=== PATIENT | male | born 1975 | race Caucasian/White ===

== ENCOUNTER → 2019-07-31 10:14 | Outpatient (CLI) | payer BC, SELFPAY ==
--- NOTE | 2019-07-31 10:24 | XR_ITS ---
PROCEDURE: XR FOOT RT MIN 3V CLINICAL INDICATION: RT FOOT PAIN COMPARISON: FTL3 FOOT-LT-3 VIEWS from 06/17/2015 FINDINGS: No fracture or dislocation. No lytic or blastic change. There is normal mineralization. The joint spaces are well-preserved. No significant degenerative/arthritic changes. No erosive changes evident. Other findings:None. IMPRESSION: Negative right foot Dictated by: Liam Harvey MD 07/31/2019 11:15 Electronically signed by Liam Harvey MD in [place] 07/31/2019 11:15
--- NOTE | 2019-07-31 10:24 | XR_ITS ---
PROCEDURE: XR FOOT LT MIN 3V CLINICAL INDICATION: LT FOOT PAIN COMPARISON: FTL3 FOOT-LT-3 VIEWS from 06/17/2015 FINDINGS: No fracture or dislocation. No lytic or blastic change. There is normal mineralization. There are postsurgical changes 2 crossing screws within the talus as before. There is a mildly prominent posterior talar process with mild osteoarthritic change the posterior aspect the talocalcaneal joint at the prominent posterior talar process. Other findings:None. IMPRESSION: Postsurgical change. 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 Otherwise negative Dictated by: Liam Harvey MD 07/31/2019 11:15 Electronically signed by Liam Harvey MD in [place] 07/31/2019 11:15
--- NOTE | 2019-07-31 10:24 | XR_ITS ---
PROCEDURE: XR LUMBAR SPINE MIN 4V CLINICAL INDICATION: LOW BACK PAIN COMPARISON: No exams were available for comparison FINDINGS: There is normal alignment. There is mild degenerative disc disease T11-T12 and T12-L1. Mild degenerative disc disease L5-S1. No acute fracture or dislocation. No lytic or blastic change. IMPRESSION: Mild degenerative changes, no acute finding Dictated by: Liam Harvey MD 07/31/2019 11:13 Electronically signed by Liam Harvey MD in [place] 07/31/2019 11:13
== END ==
PROVIDERS: PCP Family Medicine; Visit Provider Nurse Practitioner Family
DX: M54.5 Low back pain (principal); M79.672 Pain in left foot; M79.671 Pain in right foot
CPT/HCPCS: 72110; 73630

== ENCOUNTER 2020-08-13 08:28 | Outpatient (CLI) | payer BC, SELFPAY ==
[2020-08-13 08:39] VITALS: BMI 29.5
--- NOTE | 2020-08-13 08:57 | PC.NURSE ---
0857-BLOOD DRAWN BY LAB FOR H/H TO SEE IF PT NEEDS THERAPEUTIC PHLEBOTOMY.
[2020-08-13 09:10] LABS: Hematocrit 49.2 % (42.0-52.0)
== END 2020-08-13 10:10 | disposition home or self-care (01) ==
PROVIDERS: PCP General Practice; Visit Provider Nurse Practitioner Family
DX: D45 Polycythemia vera
CPT/HCPCS: 36415; 85014; 85018; 99195

== ENCOUNTER 2020-09-07 08:30 | Outpatient (CLI) | payer BC, SELFPAY ==
[2020-09-07 08:30] VITALS: BMI 29.8
[2020-09-07 08:58] LABS: Hematocrit 46.1 % (42.0-52.0); Hemoglobin 15.5 g/dL (14.1-18.0)
[2020-09-07 09:20] VITALS: BP 146/73; PULSE 73; RESP 18
[2020-09-07 10:05] VITALS: BP 133/71; PULSE 73; RESP 18
== END 2020-09-07 10:05 | disposition home or self-care (01) ==
LOC: INF 08:37
PROVIDERS: Visit Provider Nurse Practitioner Family
DX: D75.1 Secondary polycythemia (principal)
CPT/HCPCS: 36415; 85014; 85018; 99195

== ENCOUNTER 2020-10-19 08:34 | Outpatient (CLI) | payer BC, SELFPAY ==
[2020-10-19 08:34] VITALS: BMI 29.5
--- NOTE | 2020-10-19 08:52 | PC.NURSE ---
0852- H&H drawn from left AC with a butterfly needle at this time. blood specimen walked to lab at this time.
[2020-10-19 08:58] LABS: Hematocrit 46.1 % (42.0-52.0); Hemoglobin 14.5 g/dL (14.1-18.0)
[2020-10-19 09:16] VITALS: BP 150/85; PULSE 73; RESP 17; TEMP 36.5; O2SAT 97
--- NOTE | 2020-10-19 13:30 | PC.NURSE ---
0916- pt labs resulted. Hgb 14.5 at this time. no therapeutic phlebotomy needed per order.
== END 2020-10-19 09:17 | disposition home or self-care (01) ==
LOC: INF 08:34
PROVIDERS: Visit Provider Nurse Practitioner Family
DX: D75.1 Secondary polycythemia (principal); Z79.890 Hormone replacement therapy
CPT/HCPCS: 85014; 85018

== ENCOUNTER 2020-11-22 11:13 | Outpatient (CLI) | payer BC, SELFPAY ==
[2020-11-22 11:19] VITALS: BMI 29.5
[2020-11-22 12:01] LABS: Hematocrit 48.4 % (42.0-52.0); Hemoglobin 14.6 g/dL (14.1-18.0)
== END 2020-11-22 11:50 | disposition home or self-care (01) ==
LOC: INF 11:15
PROVIDERS: PCP Family Medicine; Visit Provider Nurse Practitioner Family
DX: D75.1 Secondary polycythemia (principal); Z79.890 Hormone replacement therapy
CPT/HCPCS: 36415; 85014; 85018

== ENCOUNTER 2021-01-05 08:25 | Outpatient (CLI) | payer BC, SELFPAY ==
[2021-01-05 08:33] VITALS: BMI 29.5
[2021-01-05 08:58] LABS: Hematocrit 47.1 % (42.0-52.0)
--- NOTE | 2021-01-05 09:42 | PC.NURSE ---
0850 - STEPHAN FROM LAB PRESENT TO DRAW HGB/HCT TO DETERMINE IF PT NEEDS THERAPEUTIC PHLEBOTOMY. 0910 - HGB 15 AND ORDER STATES TO DRAW BLOOD ONLY IF HGB IS GREATER THAN/EQUAL TO 15. PT DECIDED TO HOLD PHLEBOTOMY TODAY AND RETURN IN 4 WEEKS FOR ANOTHER HGB/HCT.
== END 2021-01-05 09:15 | disposition home or self-care (01) ==
LOC: INF 08:26
PROVIDERS: PCP Family Medicine; Visit Provider Nurse Practitioner Family
DX: D75.1 Secondary polycythemia (principal)
CPT/HCPCS: 36415; 85014; 85018

== ENCOUNTER 2021-02-07 08:07 | Outpatient (CLI) | payer BC, SELFPAY ==
[2021-02-07 08:11] VITALS: BMI 29.5
[2021-02-07 08:23] LABS: Hemoglobin 15.3 g/dL (14.1-18.0)
== END 2021-02-07 08:40 | disposition home or self-care (01) ==
LOC: INF 08:08
PROVIDERS: PCP Family Medicine; Visit Provider Nurse Practitioner Family
DX: D75.1 Secondary polycythemia (principal)
CPT/HCPCS: 85014; 85018

== ENCOUNTER 2021-02-10 10:54 | Outpatient (CLI) | payer BC, SELFPAY | END 2021-02-10 11:55 | disposition home or self-care (01) | LOC: INF 10:55 | PROVIDERS: PCP Family Medicine; Visit Provider Nurse Practitioner Family | DX: D75.1 Secondary polycythemia (principal); Z79.890 Hormone replacement therapy | CPT/HCPCS: 99195 ==

== ENCOUNTER → 2021-02-22 08:51 | Outpatient (CLI) | payer BC, SELFPAY ==
--- NOTE | 2021-02-22 09:09 | ECG_ITS ---
APPROVED REPORT Exam: Resting ECG HR:69 bpm ECG Measurements Heart Rate 69 AXES CO 150 P 41 QRSd 102 QRS 15 QT 364 T 13 QTc 390 Conclusion Normal sinus rhythm Incomplete right bundle branch block Borderline ECG Electronically signed by : Noel Gentile MD 02/22/2021 21:02:11
[2021-02-22 09:21] LABS: Basophils % 0.7 % (0.1-2.0); Eosinophils # 0.1 K/mm3 (0.0-0.4); Eosinophils % 1.6 % (0.1-12.0); Hemoglobin 15.7 g/dL (14.1-18.0); Lymphocytes % 34.4 % (10-50); Mean Platelet Volume 9.1 fl (7.4-10.4); Monocytes # 0.7 K/mm3 (0.1-1.0); Monocytes % 11.5 % (1.7-9.3); Neutrophils % 51.8 % (37.0-80.0); Platelet Count 328 K/mm3 (142-424); Red Blood Count 6.29 M/mm3 (4.60-6.20); Red Cell Distribution Width 17.1 % (11.5-17.5); White Blood Count 5.7 K/mm3 (4.8-10.8)
[2021-02-22 10:07] LABS: Alanine Aminotransferase 28 U/L (12-78); Albumin Level 4.2 g/dl (3.5-5.0); Albumin/Globulin Ratio 1.7 (1.1-1.8); Alkaline Phosphatase 85 U/L (38-126); Anion Gap 10.4 mEq/L (5-15); Aspartate Amino Transferase 31 U/L (17-59); Bilirubin,Total 0.9 mg/dl (0.2-1.3); Blood Urea Nitrogen 11 mg/dl (9-20); Calcium 10.5 mg/dl (8.4-10.2); Carbon Dioxide 26 mmol/L (22.0-30.0); Chloride 106 mmol/L (98-107); Chol/HDL Ratio 5.5 (1-3.5); Cholesterol 175 mg/dl (140-200); Estimated Glomerular Filt Rate 72 ml/min (>60); GFR (African American) 87 ML/MIN (>60); Globulin 2.5 g/dL (1.3-3.2); Glucose 108 mg/dl (74-100); HDL Cholesterol 32 mg/dl (40-60); Magnesium 1.9 mg/dl (1.6-2.3); Potassium 4.4 mmoL/L (3.5-5.1); Sodium 138 mmol/L (136-145); Total Protein,Serum 6.7 g/dl (6.3-8.2); Triglycerides 95 mg/dl (30-150); VLDL Cholesterol 19 mg/dL (0-40)
[2021-02-22 10:18] LABS: C-Reactive Protein 1.6 mg/L (0-4); Direct LDL Cholesterol 139.26 mg/dL (100-129)
[2021-02-22 10:24] LABS: Troponin I < 0.01 ng/ml (0.00-0.034)
== END ==
PROVIDERS: Visit Provider Nurse Practitioner Family
DX: R07.9 Chest pain, unspecified (principal)
CPT/HCPCS: 36415; 80053; 80061; 83735; 84484; 85025; 86140; 93005

== ENCOUNTER 2021-03-07 08:17 | Outpatient (CLI) | payer BC, SELFPAY ==
[2021-03-07 08:24] VITALS: BMI 29.5
[2021-03-07 08:34] LABS: Hematocrit 48.5 % (42.0-52.0); Hemoglobin 15.5 g/dL (14.1-18.0)
[2021-03-07 09:45] VITALS: BP 135/78; PULSE 77; RESP 18
--- NOTE | 2021-03-07 09:45 | PC.NURSE ---
0940-pt her for therapeutic phlebotomy if hemoglobin >15. pt's hbg 15.5 started therapeutic phlebotomy at 0856 with keegan from lab; pt's iv clotted off several times, only able to get 320ml off instead of 550ml; pt to return in 4 weeks lab recheck.
== END 2021-03-07 09:45 | disposition home or self-care (01) ==
LOC: INF 08:18
PROVIDERS: PCP Family Medicine; Visit Provider Nurse Practitioner Family
DX: D75.1 Secondary polycythemia (principal)
CPT/HCPCS: 85014; 85018; 99195

== ENCOUNTER → 2021-03-08 09:19 | Outpatient (CLI) | payer BC, SELFPAY ==
--- NOTE | 2021-03-08 09:20 | CA_ITS ---
APPROVED REPORT EXAM: Comprehensive 2D, Doppler, and color-flow Echocardiogram Telegraph Service Clerk: Beatriz Bernard CRT Ht: 6 ft 0 in Wt: 215lbs BSA: 2.20 BP: 136/88 mmHg Indications: Chest Pain, Shortness of Breath, Hypertension/HDD 2D Dimensions LVOT 1.93 cm (M/F) 1.5-2.5 LA Volume 36.80 mL LA Volume Index 16.70 mL/m2 (M/F) 16-34 M-Mode Dimensions RVDd 3.25 cm (0.9-2.6) LA Diam 3.83 cm (1.9-4.0) LVDd 4.76 cm (3.5-5.7) Ao Diam 3.62 cm (2.0-3.7) LVDs 2.78 cm (3.5-5.7) IVSd 1.21 cm (0.6-1.1) PWd 1.14 cm (0.6-1.1) EF (Teich) 72.50% FS 41.60% EDV (Teich) 105.40 mL TAPSE 2.15 (<1.7) ESV (Teich) 29.00 mL LV Diastology E Decel Time 193.00 (160-240 msec) E/A Ratio 1.54 MED E' 7.20 (< 7 cm/sec) MED A' 8.00 cm/s E'/MED E' Ratio 15.49 (>14) LAT E' 14.30 (<10 cm/sec) LAT A' 9.60 cm/s E/LAT E' Ratio 7.80 (>14) Mitral Valve MV A Velocity 73.00 (40-130 cm/s) E/A Ratio 1.54 MV Decel. Time 193.00 (160-240 ms) Pulmonary Valve PV Peak Velocity 77.00 (50-150 cm/s) Tricuspid Valve TR P. Velocity 187.00 cm/s RAP Estimate 10.00 mmHg RVSP 24.00 mmHg Left Ventricle Left atrium is normal size, left ventricle is normal size, there is no concentric left ventricular hypertrophy, visually estimated ejection fraction 55% with no regional wall motion abnormality, diastolic parameters are within normal range. Right Ventricle Right atrium and right ventricle are normal size and contractility. Aortic Valve Aortic valve is grossly normal, there is no aortic stenosis or aortic insufficiency. Mitral Valve Mitral valve grossly normal, there is trace mitral regurgitation. Tricuspid Valve Tricuspid valve grossly normal, there is trace tricuspid regurgitation, tricuspid regurgitation jet velocity is inadequate for calculation of the right ventricular systolic pressure. Pulmonic Valve Pulmonic valve is poorly visualized. Great Vessels Aortic root is normal size. Inferior vena cava normal size with normal inspiratory collapse. Pericardium No significant pericardial effusion noted. Conclusion #1. Normal left ventricular size, preserved left ventricular systolic function, visually estimated ejection fraction 55% with no regional wall motion abnormality, diastolic parameters are within normal range. #2. Trace mitral and tricuspid regurgitation. #3. No significant pericardial effusion noted. #4. Inferior vena cava normal size with normal inspiratory collapse. Electronically signed by : Aldo Alex MD 03/08/2021 19:33:47
== END ==
PROVIDERS: PCP Family Medicine; Visit Provider Nurse Practitioner Family
DX: R06.00 Dyspnea, unspecified (principal); R07.89 Other chest pain; R94.31 Abnormal electrocardiogram [ECG] [EKG]; Z82.49 Family history of ischemic heart disease and other diseases of the circulatory system
CPT/HCPCS: 93306

== ENCOUNTER → 2021-03-11 07:24 | Outpatient (CLI) | payer BC, SELFPAY ==
--- NOTE | 2021-03-11 07:24 | NM_ITS ---
APPROVED REPORT Exam: Nuclear Stress Test Indication: chest pain..fatigue Patient Location: Outpatient Stress Tech: Annabella Ibrahim AR Tech:Jessica Jimenez RENZO RT(R)(N) Ht: 6 ft 0 in Wt: 211 lbs HR: 70 bpm BP: 155/80 mmHg BSA: 2.18 m2 History: chest pain..fatigue Procedure: Patient exercised on Vinnie protocol 8:07 minutes and sec, resting heart rate 70 bpm, resting blood pressure 155/80 mmHg, with exercise maximum heart rate achived was 101 bpm which is 93 % of the maximum predicted heart rate and blood pressure was 178/88 mmHg. Patient denied any complaint of chest pain. Patient has good exercise capacity, achieved 10.1 METs of workload on treadmill, the blood pressure response to exercise was Adequate. Electrocardiogram Resting electrocardiogram shows sinus rhythm, with exercise there is less than 1.[address] segment depression noted from the baseline EKG. The EKG portion of the exercise Myoview is negative for ischemia. Cardiac Stress and Resting SPECT Images: Cardiac Stress and Resting SPECT images were obtained using technetium 99m Myoview 29.6 mCi stress and 10.18 mCi at rest. Gated SPECT for analysis of segmental wall motion and calculation of the ejection fraction also done. Cardiac stress and resting SPECT images show uniform myocardial activity without segmental perfusion abnormality, computer derived ejection fraction is 52% with no regional wall motion abnormality, right ventricle is normal size and contractility. Conclusion: 1. The EKG portion of the exercise Myoview is negative for ischemia, patient has good exercise capacity achieved 10.1 METs of workload on treadmill, the blood pressure response to exercise was adequate, there was no exercise-induced chest discomfort. 2. No scintigraphic evidence of reversible ischemia seen, computer derived ejection fraction is 52% with no regional wall motion abnormality, right ventricle is normal size and contractility 3. Normal exercise Myoview study. Electronically signed by : Aldo Alex MD 03/11/2021 14:28:41
--- NOTE | 2021-03-11 10:26 | CA_ITS ---
APPROVED REPORT Exam: Exercise Treadmill Technologist: Annabella Ibrahim, Ht: 6 ft 0 in Wt: 215 lbs BSA: 2.20 m2 HR: 63 bpm BP: 136/76 mmHg Medical History Medications: Omeprazole,,,,, Aspirin,,,,, Losartan,,,,, ClARITin D,,,,, Stress Test Details Test: Vinnie HR Resting HR: 70 bpm Max Heart Rate (APMHR): 174 bpm Max HR Achieved: 161 bpm Target HR (85% APMHR): 148 bpm % of APMHR: 93 Recovery HR: 99 bpm BP Resting BP: 155/80 mmHg Max BP: 178/88 mmHg Recovery BP: 135.0/77.0 mmHg ECG Clinical Exercise duration: 08:07 min Highest Stage Achieved: Exercise capacity: 10.1 METs Stress ECG Conclusion Test stopped due to: SOA Symptoms: SOA with peak exercise. No chest pain Arrythmias/Ectoy: None ST-T Changes: <1.5mm ST Segment changes, normal exercise treadmill stress test. Test Summary RECOVERY 03:00 0.0 0.0 108 . 159/ 83 . . REST . . . . . . . Standing REST 12:11 0.0 0.0 70 . 155/ 80 . . Stage 1 01:00 10.0 1.7 106 . . . . Stage 1 02:00 10.0 1.7 111 . . . . Stage 1 03:00 10.0 1.7 106 . 150/ 80 . . Stage 2 01:00 12.0 2.5 126 . . . . Stage 2 02:00 12.0 2.5 132 . . . . Stage 2 03:00 12.0 2.5 138 . 178/ 88 . . Stage 3 . . . . . . . Cardiolite injected Stage 3 01:00 14.0 3.4 150 . . . . Stage 3 02:00 14.0 3.4 160 . . . . Stage 3 02:07 14.0 3.4 160 . . . Stop exercise at 08:07 RECOVERY 01:00 0.0 0.0 138 . . . . RECOVERY 02:00 0.0 0.0 118 . 159/ 83 . . RECOVERY 03:00 0.0 0.0 108 . 159/ 83 . . RECOVERY 04:00 0.0 0.0 107 . 142/ 82 . . RECOVERY 04:52 0.0 0.0 101 . 135/ 77 . . Electronically signed by : Aldo Alex MD 03/11/2021 11:08:01
== END ==
PROVIDERS: PCP Family Medicine; Visit Provider Nurse Practitioner Family
DX: R06.00 Dyspnea, unspecified (principal); R07.89 Other chest pain; R94.31 Abnormal electrocardiogram [ECG] [EKG]; Z82.49 Family history of ischemic heart disease and other diseases of the circulatory system
CPT/HCPCS: 78452; 93017; A9502

== ENCOUNTER → 2021-03-16 12:55 | Outpatient (CLI) | payer BC, SELFPAY ==
--- NOTE | 2021-03-16 12:55 | CT_ITS ---
PROCEDURE: CT CHEST W CON CLINCAL INDICATION: chest pain COMPARISON: No exams were available for comparison TECHNIQUE: IV Contrast: 75ml Isovue 370 Axial images obtained with sagittal and coronal reformats. All CT scans at the facility use one or more dose reduction, viz: automated exposure control, ma/kV adjustment per patient size (including targeted exams where dose is matched to indication, i.e. head), or iterative reconstruction technique. FINDINGS: HEART AND MEDIASTINAL STRUCTURES: Unremarkable. LUNGS AND PLEURAL SPACES: Low lung volumes with vascular crowding the minimal atelectatic change in the lung base on the left. BONY STRUCTURES: No acute bony abnormalities apparent. UPPER ABDOMEN: Colonic diverticulosis ADDITIONAL FINDINGS: Mildly prominent left axillary lymph nodes IMPRESSION: No acute finding. Mildly prominent left axillary lymph nodes nonspecific Dictated by: Liam Harvey MD 03/25/2021 11:05 Liam Harvey MD in [place] 03/25/2021 11:05
== END ==
PROVIDERS: PCP Family Medicine; Visit Provider Nurse Practitioner Family
DX: R06.00 Dyspnea, unspecified (principal); R07.9 Chest pain, unspecified; R94.31 Abnormal electrocardiogram [ECG] [EKG]; I10 Essential (primary) hypertension; K21.9 Gastro-esophageal reflux disease without esophagitis; Z82.49 Family history of ischemic heart disease and other diseases of the circulatory system
CPT/HCPCS: 71260; Q9967

== ENCOUNTER 2022-02-08 12:01 | Emergency (ER) | payer BC, SELFPAY ==
--- NOTE | 2022-02-08 12:06 | XR_ITS ---
FINAL REPORT CLINICAL HISTORY: swelling, pain FINDINGS: LEFT ANKLE Three views of the left ankle were obtained. There are 2 orthopedic screws in the talus. There is no acute fracture or dislocation. The joint spaces and mortise are intact. There is a small plantar spur. There is prominent soft tissue swelling overlying lateral malleolus. IMPRESSION: Prominent soft tissue swelling over the lateral malleolus. Reviewed, Interpreted and Dictated by Akash Schmitz MD Transcribed by Tiarra Ryan Authenticated and [facility]
--- NOTE | 2022-02-08 12:06 | XR_ITS ---
FINAL REPORT CLINICAL HISTORY: swelling, injury, pain COMPARISON: 07/31/2019 FINDINGS: LEFT FOOT Three views of the left foot demonstrate no acute fracture or dislocation. There are 2 orthopedic screws in the talus. The joint spaces are preserved. There is a small plantar spur. The soft tissues are unremarkable. IMPRESSION: No acute bony abnormality. Reviewed, Interpreted and Dictated by Akash Schmitz MD Transcribed by Tiarra Ryan Authenticated and [facility]
[2022-02-08 14:00] VITALS: BP 127/79; PULSE 76; RESP 18; TEMP 36.6; O2SAT 99; BMI 29.8
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
[2022-02-08 14:34] VITALS: BP 127/79; PULSE 76; RESP 18; TEMP 36.6; O2SAT 99
== END 2022-02-08 14:41 | disposition home or self-care (01) ==
PROVIDERS: Emergency Provider Nurse Practitioner; PCP Family Medicine
DX: S90.02XA Contusion of left ankle, initial encounter (principal); R07.9 Chest pain, unspecified; R06.00 Dyspnea, unspecified; R94.31 Abnormal electrocardiogram [ECG] [EKG]; Z79.52 Long term (current) use of systemic steroids; Z79.899 Other long term (current) drug therapy; Z88.8 Allergy status to other drugs, medicaments and biological substances; Z82.49 Family history of ischemic heart disease and other diseases of the circulatory system; W22.8XXA Striking against or struck by other objects, initial encounter
CPT/HCPCS: 73610; 73630; 99213; G0463

== ENCOUNTER 2024-05-14 19:30 | Emergency (ER) | payer BC, SELFPAY ==
[2024-05-14 19:31] VITALS: BP 125/74; PULSE 90; RESP 16; TEMP 36.6; O2SAT 95; BMI 31.1
--- NOTE | 2024-05-14 19:34 | ED_ITS ---
Discharge Plan Disposition Patient Disposition: Home, Self-Care Condition: Good Prescriptions Prescriptions: No Action omeprazole 20 mg capsule,delayed release(DR/EC) 40 mg PO DAILY losartan 25 mg tablet 25 mg PO DAILY loratadine-pseudoephedrine [Claritin-D 24 Hour] 10-240 mg tablet extended release 24 hr 1 tab PO DAILY aspirin [Adult Low Dose Aspirin] 81 mg tablet,delayed release (DR/EC) 81 mg PO DAILY Referrals Follow up/Referrals: Alison Ambrose MD [Primary Care Provider] - See instructions Pat Godinez DPM [Staff Physician] - See instructions Activity Restrictions/Add. Instructions Additional Instructions/Restrictions: As we discussed continue taking 1000 mg of Tylenol with 800 mg of ibuprofen/Motrin alternating every 4 hours or together every 8 hours and make sure to take the Motrin with food. Please ice and elevate. Please wear your Ortho boot. If you have continuing problems I have given you the referral to podiatry Dr. Godinez. Please call to make your appointment. Follow-up with your PCP for ongoing new or worsening signs or symptoms or return to the ER as needed. Clinical Impressions Clinical Impression: Right ankle sprain Qualifiers: Encounter type: initial encounter Involved ligament of ankle: unspecified ligament Qualified Code(s): S93.401A - Sprain of unspecified ligament of right ankle, initial encounter Print Language Print Language: Slovak Discharge ED Provider: Akbar Arias General Adult HPI <DALY Carrillo - Last Filed: 05/14/24 20:57> General Chief complaint: PAIN Stated complaint: AO02/ RT ankle inj Time Seen by Provider: 05/14/24 19:34 History of Present Illness HPI narrative: Patient presents for evaluation of a right ankle injury. Patient slipped on ice on his driveway. His right ankle bent inward and he end up falling on it. He reports significant amount of pain in inability to bear weight then and now. He denies any numbness or tingling loss of motor or sensory. Patient denies injury to any other place. Related Data Home Medications ?Medication ?Instructions ?Recorded ?Confirmed aspirin 81 mg tablet,delayed 81 mg PO DAILY 02/23/21 03/16/21 release (Adult Low Dose Aspirin) loratadine-pseudoephedrine ER 10 1 tab PO DAILY 02/23/21 03/16/21 mg-240 mg tablet,extended [id number] (Claritin-D 24 Hour) losartan 25 mg tablet 25 mg PO DAILY 02/23/21 03/16/21 omeprazole 20 mg capsule,delayed 40 mg PO DAILY 02/23/21 03/16/21 release Allergies Allergy/AdvReac Type Severity Reaction Status Date / Time morphine (MORPHINE) Allergy Unknown Verified 03/16/21 14:09 [facility] <DALY Carrillo - Last Filed: 05/14/24 20:57> [facility] Disclaimer: The information contained in this section may have been updated after the patient was seen, as this information can be updated by other users. Medical History (Updated 05/14/24 @ 20:33 by DALY Carrillo) Family history of heart disease Abnormal electrocardiography Dyspnea Chest pain Social History (Updated 02/08/22 @ 14:10 by Ml Hernández RN) Smoking Status: Unknown if ever smoked alcohol intake: never current occupational status: employed Travel in the last 8 weeks: Inside the [place] Have you lived/traveled outside US in past 30 days?: No Contact w/someone who lives/traveled outside US past 30 days?: No Exposure to someone with infectious disease in past 14 days?: No Do you have a fever (greater than 100.4 F or 38 C)?: No Have you tested positive for COVID-19: No Exposed to someone with COVID-19 in past 14 days?: No Do you have a sore throat?: No Do you have a cough?: No Do you have any weakness?: No Do you have any diarrhea?: No Are you experiencing any unusual bleeding?: No Do you have any muscle aches/pain?: No Do you have any abdominal pain?: No Are you experiencing loss of taste or smell?: No Other Medical History Have you received the Pneumonia Vaccine: No <DALY Carrillo - Last Filed: 05/14/24 20:57> ROS Obtained: Yes Systems reviewed as appropriate & no additional complaints except as documented Physical Exam <DALY Carrillo - Last Filed: 05/14/24 20:57> General General appearance: alert and in no apparent distress Respiratory Respiratory exam: Present normal lung sounds bilaterally Cardiovascular Cardiovascular exam: Present regular rate Neurological Exam Neurological exam: Present alert and oriented X3 Medical Decision Making <DALY Carrillo - Last Filed: 05/14/24 20:57> Medical Records Screening: Per USPSTF and CDC recommendations, given the prevalence of disease in our region, it is our hospital?s policy to screen for HIV and viral Hepatitis for all patients aged 18 and over and those with ongoing risk factors. Saad Inquiry Pt receiving controlled substance: No Vital Signs: 05/14/24 19:31 05/14/24 20:42 Temperature 97.9 F 97.9 F Temperature Source Oral Pulse Rate 90 Pulse Rate [Left] 90 Respiratory Rate 16 20 Blood Pressure 125/74 Blood Pressure [Right Arm] 125/74 Blood Pressure Mean [Right Arm] 91 02 Sat by Pulse Oximetry 95 Oxygen Delivery Method Room Air Room Air Orders (Tests/Meds): ED MEDICATIONS Discontinued Medications Generic Name Dose Route Start Last Admin Trade Name Freq PRN Reason Stop Dose Admin Acetaminophen 1,000 mg 05/14/24 19:47 05/14/24 20:10 Acetaminophen 500mg Tab PO 05/14/24 19:48 Not Given ONCE ONE Ibuprofen 800 mg 05/14/24 19:47 05/14/24 20:10 Ibuprofen 400 Mg Tablet PO 05/14/24 19:48 800 mg ONCE ONE Administration ORDERS Category Date Time Status Ankle XR -Right minimum 3 Views [XR ankle RT min 3V] Exams 05/14/24 19:45 Completed Stat Foot XR right 2 views [XR foot RT 2V] Stat Exams 05/14/24 19:45 Completed Tibia/fibula XR right 2 views [XR tibia fibula RT 2V] Exams 05/14/24 19:45 Completed Stat Medical Decision Narrative: In summary patient is a 48-year-old male who presents to the emergency department for evaluation of right ankle injury. Patient is hemodynamically stable upon arrival, afebrile. Physical exam is remarkable for tenderness to palpation at the lateral malleolus of the right ankle with slight edema no visible ecchymosis yet no bony deformity. Patient has full range of motion is neurovascular intact distally but range of motion is minimal due to his pain. He has palpable DP and PT pulses. He has no calf or hewitt tenderness no need tenderness has full range of motion at the knee.. Differential diagnosis includes sprain versus fracture. Initial workup will be conducted with plain film x-rays. Initial interventions include Tylenol ibuprofen. Initial workup reviewed by me and my informal interpretation of his imaging shows no evidence of acute bony fracture prior to radiology read. Upon repeat evaluation assisted the patient in weightbearing and he can stand but cannot ambulate on his own due to the pain currently. Given this I have ordered the patient an Ortho boot and offered the patient crutches but he is able to tolerate walking in the boot prior to discharge. Patient given instructions on ice elevation and continue to take Tylenol alternating with Motrin for pain. I have referred the patient to podiatry if he wishes for continued and ongoing management. <Akbar Arias MD - Last Filed: 05/14/24 23:21> Vital Signs: 05/14/24 19:31 05/14/24 20:42 Temperature 97.9 F 97.9 F Temperature Source Oral Pulse Rate 90 Pulse Rate [Left] 90 Respiratory Rate 16 20 Blood Pressure 125/74 Blood Pressure [Right Arm] 125/74 Blood Pressure Mean [Right Arm] 91 02 Sat by Pulse Oximetry 95 Oxygen Delivery Method Room Air Room Air Orders (Tests/Meds): ED MEDICATIONS Discontinued Medications Generic Name Dose Route Start Last Admin Trade Name Cindy PRN Reason Stop Dose Admin Acetaminophen 1,000 mg 05/14/24 19:47 05/14/24 20:10 Acetaminophen 500mg Tab PO 05/14/24 19:48 Not Given ONCE ONE Ibuprofen 800 mg 05/14/24 19:47 05/14/24 20:10 Ibuprofen 400 Mg Tablet PO 05/14/24 19:48 800 mg ONCE ONE Administration ORDERS Category Date Time Status Ankle XR -Right minimum 3 Views [XR ankle RT min 3V] Exams 05/14/24 19:45 Completed Stat Foot XR right 2 views [XR foot RT 2V] Stat Exams 05/14/24 19:45 Completed Tibia/fibula XR right 2 views [XR tibia fibula RT 2V] Exams 05/14/24 19:45 Completed Stat Medical Decision Narrative: In summary patient is a 48-year-old male who presents to the emergency department for evaluation of right ankle injury. Patient is hemodynamically stable upon arrival, afebrile. Physical exam is remarkable for tenderness to palpation at the lateral malleolus of the right ankle with slight edema no visible ecchymosis yet no bony deformity. Patient has full range of motion is neurovascular intact distally but range of motion is minimal due to his pain. He has palpable DP and PT pulses. He has no calf or hewitt tenderness no need tenderness has full range of motion at the knee.. Differential diagnosis includes sprain versus fracture. Initial workup will be conducted with plain film x-rays. Initial interventions include Tylenol ibuprofen. Initial workup reviewed by me and my informal interpretation of his imaging shows no evidence of acute bony fracture prior to radiology read. Upon repeat evaluation assisted the patient in weightbearing and he can stand but cannot ambulate on his own due to the pain currently. Given this I have ordered the patient an Ortho boot and offered the patient crutches but he is able to tolerate walking in the boot prior to discharge. Patient given instructions on ice elevation and continue to take Tylenol alternating with Motrin for pain. I have referred the patient to podiatry if he wishes for continued and ongoing management. I was consulted by the KISHA, and we discussed the complexity of the problems being addressed. I approved the treatment and management plan for this patient's care in the Emergency Department, thus performing a substantive portion of the medical decision making. Akbar Arias MD Critical Care <DALY Carrillo - Last Filed: 05/14/24 20:57> Critical Care Time Critical Care Time: No
--- NOTE | 2024-05-14 19:45 | XR_ITS ---
PROCEDURE INFORMATION: Exam: XR Right Foot Exam date and time: 05/14/2024 7:42 PM Age: 48 years old Clinical indication: Injury or trauma; Fall; Sprain or strain; Ankle; Right; Additional info: Fall on ice TECHNIQUE: Imaging protocol: Radiologic exam of the right foot. Views: 1 or 2 views. COMPARISON: CR XR FOOT RT MIN 3V 09/28/2019 10:27 FINDINGS: Bones/joints: Calcaneus enthesophyte in the plantar tendon. No acute fracture or dislocation. Soft tissues: Normal. IMPRESSION: No acute fracture or dislocation.
--- NOTE | 2024-05-14 19:45 | XR_ITS ---
PROCEDURE INFORMATION: Exam: XR Right Tibia and Fibula Exam date and time: 05/14/2024 7:41 PM Age: 48 years old Clinical indication: Injury or trauma; Fall; Blunt trauma; Ankle; Right; Additional info: Fall on ice TECHNIQUE: Imaging protocol: Radiologic exam of the right tibia and fibula. Views: 2 views. COMPARISON: CR Ankle R 14/05/2024 19:41 FINDINGS: Bones/joints: Calcaneus enthesophyte in the plantar tendon. No acute fracture or dislocation. Soft tissues: Normal. IMPRESSION: No acute fracture or dislocation.
--- NOTE | 2024-05-14 19:45 | XR_ITS ---
PROCEDURE INFORMATION: Exam: XR Right Ankle Exam date and time: 05/14/2024 7:41 PM Age: 48 years old Clinical indication: Injury or trauma; Fall; Sprain or strain; Ankle; Right; Additional info: Fall on ice TECHNIQUE: Imaging protocol: Radiologic exam of the right ankle. Views: 3 or more views. COMPARISON: CR XR FOOT RT MIN 3V 09/28/2019 10:27 FINDINGS: Bones/joints: No acute fracture or dislocation. Calcaneus enthesophyte in the plantar tendon. Soft tissues: Normal. IMPRESSION: No acute fracture or dislocation.
[2024-05-14] MEDS: IBUPROFEN 400 MG TABLET 800 MG PO (20:10)
--- NOTE | 2024-05-14 20:37 | PC.NURSE ---
Called Rad to request transvag US to confirm intrauterine
[2024-05-14 20:42] VITALS: BP 125/74; PULSE 90; RESP 20; TEMP 36.6; O2SAT 95
== END 2024-05-14 20:52 | disposition home or self-care (01) ==
PROVIDERS: Emergency Provider Emergency Medicine; PCP Family Medicine
DX: S93.401A Sprain of unspecified ligament of right ankle, initial encounter (principal); M25.571 Pain in right ankle and joints of right foot; W00.0XXA Fall on same level due to ice and snow, initial encounter; Y93.89 Activity, other specified; Y92.008 Other place in unspecified non-institutional (private) residence as the place of occurrence of the external cause
CPT/HCPCS: 73590; 73610; 73620; 99283

== ENCOUNTER 2024-10-18 09:04 | Emergency (ER) | payer BC, SELFPAY ==
[2024-10-18] VITALS (11 sets, daily range): BP systolic 121–178; BP diastolic 66–97; PULSE 54–79; RESP 15–24; TEMP 36.6–36.8; O2SAT 94–99; BMI 30.5
--- NOTE | 2024-10-18 09:08 | ECG_ITS ---
APPROVED REPORT Exam: Resting ECG HR:76 bpm ECG Measurements Heart Rate [address] 168 P 57 QRSd 109 QRS 22 QT 381 T 18 QTc 411 Conclusion SINUS RHYTHM WITH SINUS ARRHYTHMIA INDETERMINATE AXIS INCOMPLETE RIGHT BUNDLE BRANCH BLOCK [90+ ms QRS DURATION, TERMINAL R IN V1/V2, 40+ ms S IN I/aVL/V4/V5/V6] BORDERLINE ECG UNCONFIRMED REPORT Electronically signed by : Jose Fraga, 10/18/2024 15:20:44
--- OUTSIDE RECORDS SUMMARY | 2024-10-18 09:11 | XMS_ITS | Clinical Summary ---
Author Organization [facility] Address [address] [place] [address] Care Team Providers Care Data Visualization Developer Name Role Phone Iglesia Sheriff MD Primary Care Provider [phone] Allergies No known active allergies Medications lisinopril 10 MG tablet Active omeprazole (PriLOSEC) [address] capsule Active Social History Tobacco Use Types Packs/Day Years Used Date Smoking Tobacco: Never Smokeless Tobacco: Never Alcohol Use Standard Drinks/Week Comments Yes 0 (1 standard drink = 0.6 oz pure alcohol) Drinks alcohol very occasionally Sex and Gender Information Value Date Recorded Sex Assigned at Not on file Legal Sex Male 8:17 PM EDT Gender Identity Not on file Sexual Orientation Not on file Last Filed Vital Signs Vital Sign Reading Time Taken Comments Blood Pressure 155/92 06/15/2020 9:42 AM EDT Pulse 70 06/15/2020 9:42 AM EDT Temperature 36.9 C (98.5 F) 06/15/2020 9:42 AM EDT Respiratory Rate 18 06/15/2020 9:42 AM EDT Oxygen Saturation 98% 06/15/2020 9:42 AM EDT Inhaled Oxygen Concentration - - Weight 97.8 kg (215 lb 9.8 oz) 06/15/2020 9:42 A M EDT Height 182.8 cm (5' 11.97 ) 06/15/2020 9:42 AM E DT Body Mass Index 29.27 06/15/2020 9:42 AM EDT Plan of Treatment Health Maintenance Due Date Last Done Comments [facility]-Depression Screening 1974 [facility]-/Child/Adol SDOH Screenings 1974 [facility]- SDOH Screenings 1992 [facility]-Adult SDOH Screenings 1992 [facility]-DTaP,Tdap,and Td Vaccine s (1 - Tdap) 1993 [facility]-Hepatitis B Vaccines (1 of 3 - 19+ 3-dose series) 1993 CT Colonography 12/15/2019 Colonoscopy 12/15/2019 FIT-DNA 12/15/2019 FIT 12/15/2019 FOBT 12/15/2019 Sigmoidoscopy 12/15/2019 [facility]-Colorectal Cancer Screening 12/15/2019 [id number] Vaccine (1 - 20 24-25 season) 2023 [facility]-Influenza Vaccine (#1) 2024 [facility]-Zoster Vaccines (1 of 2) 2024 HPV Vaccines Aged Out No longer eligi ble based on patient's age to complete this topic [facility]-HIB Vaccines Aged Out No longer e ligible based on patient's age to complete this topic [facility]-Hepatitis A Vaccines Aged Out No longer eligible based on patient's age to complete this topic [facility]-IPV Vaccines Aged Out No longer e ligible based on patient's age to complete this topic [facility]-Pneumococcal Vaccine: Pediatrics (0 to 5 Years) and At-Risk Patients (6 to 49 Years) Aged Out No long er eligible based on patient's age to complete this topic [facility]-Rotavirus Vaccines Aged Out No lo nger eligible based on patient's age to complete this topic Insurance [employer] Care Teams Data Visualization Developer Relationship Specialty Start Date End Date Iglesia Sheriff MD [address] [place] [address] [facility] - General 08/06/20
--- OUTSIDE RECORDS SUMMARY | 2024-10-18 09:11 | XMS_ITS | Continuity of Care Document ---
Author Organization [facility], INTERNAL MEDICINE SB Address [address] [place] [address] Care Team Providers Care Stitch Burnisher Name Role Phone TIMOTHY KRISHNA JR General Surgeon MARIANA DAVILA Primary Care Provider Assessment No assessment recorded. Plan of Treatment Reminders Order Date Submit Date Provider Last Modified By Organization Details Last Modified Time Details Appointments None recorded. Lab None recorded. Referral None recorded. Procedures None recorded. Surgeries None recorded. Imaging None recorded. Medication Orders ramelteon 8 mg tablet [address] [place] [address] Pharmacy, [address] [place] [address], [address], [place], [address], 10:16:34 Patient TargetsNo targets recorded. Patient Instructions Encounter Date Encounter Id Patient Instructions Last Modified By Organization Details Last Modified Time 10/13/2024 [id number] gastroesophageal reflux disease (GERD): care instructions Not available 10/13/2024 10:14:02 Body Mass Index: Care Instructions-LC Not available 10/13/2024 10:14:02 Reason for Referral None Reported. Results Created Date Observation Date Name Description Value Unit Range Abnormal Flag Note LastModifiedBy Organization Detail LastModifiedTime 10/14/1910/13/2024 COMPL ETE BLOOD COUNT white blood cells 6.0 10*3/ uL 3.8-10 .8 normal Not Available [facility] [address] [place], [address], 10/13/2024 10:05:14 10/14/19 25 10/13/2024 COMPL ETE BLOOD COUNT red blood cells 5.13 10*6/ uL 4.20-5 .80 normal Not Available [facility] [address] [place] [address], [address], 10/13/2024 10:05:14 10/14/19 25 10/13/2024 COMPL ETE BLOOD COUNT hemoglobin 16.3 g/dL 14.0-1 8.0 normal Not Available [facility] [address] [place] [address], [address], 10/13/2024 10:05:14 10/14/19 25 10/13/2024 COMPL ETE BLOOD COUNT hematocrit 46.0 % 40.0-5 2.0 normal Not Available [facility] [address] [place] [address], [address], 10/13/2024 10:05:14 10/14/19 25 10/13/2024 COMPL ETE BLOOD COUNT MCV 90 fL 80-100 normal Not Available [facility] [address] [place] [address], [address], 10/13/2024 10:05:14 10/14/19 25 10/13/2024 COMPL ETE BLOOD COUNT MCH 32 pg 26-35 normal Not Available [facility] [address] [place] [address], [address], 10/13/2024 10:05:14 10/14/19 25 10/13/2024 COMPL ETE BLOOD COUNT MCHC 35 g/dL 32-36 normal Not Available [facility] [address] [place] [address], [address], 10/13/2024 10:05:14 10/14/19 25 10/13/2024 COMPL ETE BLOOD COUNT RDW 13.5 % 11.0-1 5.0 normal Not Available [facility] [address] [place] [address], [address], 10/13/2024 10:05:14 10/14/19 25 10/13/2024 COMPL ETE BLOOD COUNT MPV 9.0 fL 6.2-10 .5 normal Not Available [facility] [address] [place] [address], [address], 10/13/2024 10:05:14 10/14/19 25 10/13/2024 COMPL ETE BLOOD COUNT platelet count 216 10*3/ uL 150-40 0 normal Not Available [facility] [address] [place] [address], [address], 10/13/2024 10:05:14 10/14/19 25 10/13/2024 COMPL ETE BLOOD COUNT neutrophil,a bsolute 2.5 10*3/ uL 1.6-8. 4 normal Not Available [facility] [address] [place] [address], [address], 10/13/2024 10:05:14 10/14/19 25 10/13/2024 COMPL ETE BLOOD COUNT lymphocyte,a bsolute 2.4 10*3/ uL 0.4-5. 1 normal Not Available [facility] [address] [place] [address], [address], 10/13/2024 10:05:14 10/14/19 25 10/13/2024 COMPL ETE BLOOD COUNT monocyte,abs olute 0.9 10*3/ uL 0.0-1. 2 normal Not Available [facility] [address] [place] [address], [address], 10/13/2024 10:05:14 10/14/19 25 10/13/2024 COMPL ETE BLOOD COUNT eosinophil,a bsolute 0.1 10*3/ uL 0.0-0. 8 normal Not Available [facility] [address] [place] [address], [address], 10/13/2024 10:05:14 10/14/19 25 10/13/2024 COMPL ETE BLOOD COUNT basophil,abs olute 0.0 10*3/ uL 0.0-0. 3 normal Not Available [facility] [address] [place] [address], [address], 10/13/2024 10:05:14 10/14/19 25 10/13/2024 COMPL ETE BLOOD COUNT % neutrophils 42.5 % 42.0-7 8.0 normal Not Available [facility] [address] [place] [address], [address], 10/13/2024 10:05:14 10/14/19 25 10/13/2024 COMPL ETE BLOOD COUNT % lymphocytes 40.5 % 11.0-4 7.0 normal Not Available [facility] [address] [place] [address], [address], 10/13/2024 10:05:14 10/14/19 25 10/13/2024 COMPL ETE BLOOD COUNT % monocytes 14.4 % 0.0-11 .0 high Not Available [facility] [address] [place] [address], [address], 10/13/2024 10:05:14 10/14/19 25 10/13/2024 COMPL ETE BLOOD COUNT % eosinophils 2.1 % 0.0-7. 0 normal Not Available [facility] [address] [place] [address], [address], 10/13/2024 10:05:14 10/14/19 25 10/13/2024 COMPL ETE BLOOD COUNT % basophils 0.5 % 0.0-3. 0 normal Not Available [facility] [address] [place] [address], [address], 10/13/2024 10:05:14 10/14/19 25 10/13/2024 COMPL ETE BLOOD COUNT nucleated red cells 0.0 % 0.0-0. 9 normal Not Available [facility] [address] [place] [address], [address], 10/13/2024 10:05:14 10/14/19 25 10/13/2024 COMPL ETE BLOOD COUNT nucleated RBCs, absolute 0.00 10*3/ uL not estab. normal Not Available [facility] [address] [place] [address], [address], 10/13/2024 10:05:14 10/14/19 25 10/13/2024 GLYCO HEMOG LOBIN A1C glyco HGB A1C 5.6 % 0.0-5. 6 normal Not Available [facility] [address] [place] [address], [address], 10/13/2024 10:11:11 10/14/19 25 10/13/2024 GLYCO HEMOG LOBIN A1C estimated avg. glucose 114 mg/dL _(lisa c) normal A1c value s betwe en 5.7% to 6.4% indic ate predi abete s. Resul ts 6.5% or great er is diagn ostic of diabe alanis. Ameri can Diabe alanis Assoc iatio n (diab etes. org) Not Available [facility] [address] [place] [address], [address], 10/13/2024 10:11:11 10/14/19 25 10/13/2024 LIPID PROFI LE HDL cholesterol 27 mg/dL 40-242 low Not Available [facility] [address] [place] [address], [address], 10/13/2024 10:31:33 10/14/19 25 10/13/2024 LIPID PROFI LE triglyceride s 132 mg/dL 0-149 normal TRIGL YCERI DE RANGE S JAZZY L: < 150 BORDE RLINE HIGH: 150 - 199 HIGH: 200 - 499 VERY HIGH: > OR = 500 Not Available [facility] [address] [place] [address], [address], 10/13/2024 10:31:33 10/14/19 25 10/13/2024 LIPID PROFI LE cholesterol 147 mg/dL 0-199 normal FELECIA STERO L (TOTA L) RANGE S NORMAN ABLE: < 200 BORDE RLINE : 200 - 239 HIGHE R RISK: > 239 Not Available [facility] [address] [place] [address], [address], 10/13/2024 10:31:33 10/14/19 25 10/13/2024 LIPID PROFI LE LDL cholesterol 94 mg/dL _(lisa c) 0-99 normal LDL FELECIA STERO L RANGE S OPTIM AL: < 100 NEAR/ ABOVE OPTIM AL: 100 - 129 BORDE RLINE HIGH: 130 - 159 HIGH: 160 - 189 VERY HIGH: > OR = 190 Not Available [facility] [address] [place] [address], [address], 10/13/2024 10:31:33 10/14/19 25 10/13/2024 LIPID PROFI LE chol/HDL ratio (calc) 5.4 mg/dL normal NO JAZZY L RANGE ESTAB LISHE D FOR FELECIA STERO L/HDL RATIO (CALC ULATE D). Not Available [facility] [address] [place] [address], [address], 10/13/2024 10:31:33 10/14/19 25 10/13/2024 LIPID PROFI LE LDL, direct 105 0-99 high Not Available [facility] [address] [place] [address], [address], 10/13/2024 10:31:33 10/14/19 25 10/13/2024 COMP. METAB OLIC PANEL glucose 93 mg/dL 74-100 normal Not Available [facility] [address] [place] [address], [address], 10/13/2024 10:31:35 10/14/19 25 10/13/2024 COMP. METAB OLIC PANEL blood urea nitrogen 13 mg/dL 6-20 normal Not Available [facility] [address] [place] [address], [address], 10/13/2024 10:31:35 10/14/19 25 10/13/2024 COMP. METAB OLIC PANEL creatinine 1.05 mg/dL 0.70-1 .20 normal Not Available [facility] [address] [place] [address], [address], 10/13/2024 10:31:35 10/14/19 25 10/13/2024 COMP. METAB OLIC PANEL BUN/creatini ne ratio 12 (calc ) 10-20 normal Not Available [facility] [address] [place] [address], [address], 10/13/2024 10:31:35 10/14/19 25 10/13/2024 COMP. METAB OLIC PANEL sodium 138 mmol/ L 136-14 5 normal Not Available [facility] [address] [place] [address], [address], 10/13/2024 10:31:35 10/14/19 25 10/13/2024 COMP. METAB OLIC PANEL potassium 3.9 mmol/ L 3.4-5. 0 normal Not Available [facility] [address] [place] [address], [address], 10/13/2024 10:31:35 10/14/19 25 10/13/2024 COMP. METAB OLIC PANEL chloride 104 mmol/ L 98-107 normal Not Available [facility] [address] [place] [address], [address], 10/13/2024 10:31:35 10/14/19 25 10/13/2024 COMP. METAB OLIC PANEL carbon dioxide 22 mmol/ L 22-31 normal Not Available [facility] [address] [place] [address], [address], 10/13/2024 10:31:35 10/14/19 25 10/13/2024 COMP. METAB OLIC PANEL anion gap 12 (calc ) 7-25 normal Not Available [facility] [address] [place] [address], [address], 10/13/2024 10:31:35 10/14/19 25 10/13/2024 COMP. METAB OLIC PANEL calcium 9.4 mg/dL 8.6-10 .2 normal Not Available [facility] [address] [place] [address], [address], 10/13/2024 10:31:35 10/14/19 25 10/13/2024 COMP. METAB OLIC PANEL total protein 6.6 g/dL 6.4-8. 3 normal Not Available [facility] [address] [place] [address], [address], 10/13/2024 10:31:35 10/14/19 25 10/13/2024 COMP. METAB OLIC PANEL albumin 4.2 g/dL 3.5-5. 2 normal Not Available [facility] [address] [place] [address], [address], 10/13/2024 10:31:35 10/14/19 25 10/13/2024 COMP. METAB OLIC PANEL globulin 2.4 1.5-4. 5 normal Not Available [facility] [address] [place] [address], [address], 10/13/2024 10:31:35 10/14/19 25 10/13/2024 COMP. METAB OLIC PANEL albumin/glob ulin ratio 1.8 (calc ) 1.1-2. 5 normal Not Available [facility] [address] [place] [address], [address], 10/13/2024 10:31:35 10/14/19 25 10/13/2024 COMP. METAB OLIC PANEL bilirubin, total 0.7 mg/dL 0.1-1. 2 normal Not Available [facility] [address] [place] [address], [address], 10/13/2024 10:31:35 10/14/19 25 10/13/2024 COMP. METAB OLIC PANEL alkaline phosphatase 109 U/L 40-129 normal Not Available [facility] [address] [place] [address], [address], 10/13/2024 10:31:35 10/14/19 25 10/13/2024 COMP. METAB OLIC PANEL AST 27 U/L 0-40 normal Not Available [facility] [address] [place] [address], [address], 10/13/2024 10:31:35 10/14/19 25 10/13/2024 COMP. METAB OLIC PANEL ALT 33 U/L 0-41 normal Not Available [facility] [address] [place], [address], 10/13/2024 10:31:35 10/14/19 25 10/13/2024 COMP. METAB OLIC PANEL eGFR 87 >= 60 normal NOT E New calcu latio n for GFR (CKD- EPI 2020) is formu lated witho ut race adjus tment facto rs at the [facility] menda tion of the Doug Hidalgo y Manjeet chase and Cara Peters ty of Nephr ology . This calcu latio n has not been valid ated in pregn ant women . For pedia tric patie nts refer to https ://ariel guillory.melanie woo/gil kaplan s/BRANDON QI/gf r_cal culat orPed Not Available [facility] [address] [place] [address], [address], 10/13/2024 10:31:35 10/14/19 25 10/13/2024 VITAM IN D 25-OH vitamin D 25-oh, total 42 NG/mL >=30 NG/mL normal Not Available [facility] [place], [address], 10/13/2024 10:46:27 10/14/19 25 10/13/2024 PROST ATE SPECI FIC AG prostate specific Ag 0.661 NG/mL 0.000- 3.100 normal This test was perfo rmed using Dasia e801 Elect dasia milum inesc ent metho d. The test metho d is based on WHO-s tanda rdize d calib ratio n. Value s obtai keiko from diffe rent assay metho ds or manuf actur ers may not be marley rable . Not Available [facility] [place], [address], 10/13/2024 10:47:09 10/14/19 25 10/13/2024 TSH WITH REFLE X FT4 TSH with reflex FT4 2.530 u[IU] /mL 0.270- 4.200 normal Not Available [facility] [address] [place], [address], 10/13/2024 10:47:11 10/14/19 25 10/13/2024 TESTO STERO NE, TOTAL testosterone , total 679 NG/dL 249-83 6 normal Refer ence range is for age 20-49 years . Not Available [facility] [address] [place] [address], [address], 10/13/2024 10:47:12 10/14/19 25 10/17/2024 TESTO STERO NE, FREE testosterone , free 57.1 pg/mL 46.0-2 24.0 normal MDF med fusio n [address] [facility] [address] [facility] [address] [phone] Ithie osiris Morley MD, PhD Not Available [facility] [address] [place] [address], [address], 10/17/2024 14:04:09 Result Notes None recorded. Problems Name Problem SNOMED Code Status Onset Date Resolution Date Notes Provider Name and Address Organization Details Recorded Time Umbilical hernia 960617378 Active 2021 TIMOTHY KRISHNA JR, MD [address] [place] [address], [address], [facility] 2 15:03:19 Low back pain 218132946 Active 2021 TIMOTHY KRISHNA JR, MD [address] [place] [address], [address], [facility] 2 08:51:17 History of polyp of colon 903163041 Active 2023 MARIANA KLEIN PABLOARIANNAWOJCIECH DAVILA, [employer]LECT[employer]SEMBLER [address] [place], [address], [facility] 4 17:54:08 Essential hypertension 37365013 Active 2023 MARIANA KLEIN PABLOARIANNAWOJCIECH DAVILA, ELECT[employer] SIGN ASSEMBLER [address] [place], [address], [facility] 4 17:54:14 Gastroesophage al reflux disease without esophagitis 744711910 Active 2023 MARIANA AMADORWOJCIECH DAVILA, ELECT[employer] SIGN ASSEMBLER [address] [place], [address], [facility] 4 17:54:24 Problem Notes None recorded. Procedures Surgical History Date Name Laterality Status Provider Name and Address Organization Details Recorded Time 5 Skin Tag Removal completed Mary Ann Morris [facility] 05/16/2024 09:06:31 4 Destruction BN Lesions completed Clementine Pickens [facility] 09/21/2023 09:10:32 4 Skin Tag Removal completed MARIANA KLEIN BELLO DAVILA, ELECT[employer]IC SIGN ASSEMBLER [address] [place], [address], [facility] 06/18/2023 17:59:37 5 vasectomy completed Eileen Napier [facility] 10/21/2021 11:54:31 open reduction of dislocation of ankle completed [facility] 01/05/2022 14:11:34 hernia repair completed [facility] 01/31/2022 08:22:16 Imaging Results None recorded. Procedure Notes None recorded. Medical Equipment None Reported. Allergies No known drug allergies Medications Name Sig Start Date Stop Date Status Note LastModified by Organization Details LastModified Time cyclobenzap rine 10 mg tablet Take 1 tablet 3 times a day by oral route. 09/18 completed Not Available Not Available Not Available tizanidine 2 mg tablet Take 1 tablet every 6 hours by oral route for 10 days. 09/20 completed Not Available Not Available Not Available trazodone 50 mg tablet Take 1 tablet every day by oral route for 90 days. 04/18 completed Not Available Not Available Not Available ibuprofen 800 mg tablet Take 1 tablet 3 times a day by oral route for 30 days. 10/13 completed Not Available Not Available Not Available hydrocodone 5 mg-acetamin ophen 325 mg tablet Take 1 tablet every 6 hours by oral route as needed. 01/31 completed Not Available Not Available Not Available meloxicam 15 mg tablet Take 1 tablet every day by oral route for 30 days. 04/18 completed Not Available Not Available Not Available Medrol (Joey) 4 mg tablets in a dose pack Take as directed 10/06 completed Not Available Not Available Not Available prednisone 20 mg tablet Take 1 tab twice daily for 5 days, then 1 tab once daily for 5 days by oral route. 09/18 completed Not Available Not Available Not Available omeprazole 40 mg capsule,del ayed release Take 1 capsule every day by oral route. 04/18 completed Not Available Not Available Not Available triamcinolo ne acetonide 0.1 % topical cream Apply a thin layer to the affected areas of rash on the left elbow twice daily for 2 weeks. Then may use 2-3 times per week as needed for flares. 2023 active Not Available Not Available Not Avai lable losartan 25 mg tablet Take 1 tablet every day by oral route for 90 days. 2024 active Not Available Not Available Not Avai lable omeprazole 20 mg capsule,del ayed release Take 1 capsule every day by oral route as needed. active Not Available Not Available No t Available montelukast 10 mg tablet Take 1 tablet every day by oral route for 90 days. 04/18 completed Not Available Not Available Not Available aspirin 81 mg tablet Take 1 tablet every day by oral route. active Not Available Not Available No t Available fluticasone propionate 50 mcg/actuati on nasal spray,suspe nsion [place] 1 spray every day by intranasa l route for 30 days. 2023 active Not Available Not Available Not Avai lable loratadine 10 mg tablet Take 1 tablet every day by oral route for 30 days. 04/18 completed Not Available Not Available Not Available bupropion HCl XL 150 mg 24 hr tablet, extended release Take 1 tablet every day by oral route for 90 days. 09/18 completed Not Available Not Available Not Available tadalafil 20 mg tablet Take 1 tablet every day by oral route as needed for 30 days. 2024 active Not Available Not Available Not Avai lable tizanidine 4 mg capsule Take 1 capsule(s ) 3 TIMES A DAY by oral route as needed for back spasm. 06/14 completed Not Available Not Available Not Available ramelteon 8 mg tablet Take 1 tablet every day by oral route for 30 days. 2024 active Not Available Not Available Not Avai lable IBU 06/14 completed Not Available Not Available Not Available Tylenol active Not Available Not Avail able Not Available Suprep Bowel Prep Kit 17.5 gram-3.13 gram-1.6 gram oral solution Take as directed 09/18 completed Not Available Not Available Not Available Wegovy 0.25 mg/0.5 mL subcutaneou s pen injector Inject 0.25 mg every week by subcutane ous route for 28 days. 06/14 completed Not Available Not Available Not Available Mounjaro 2.5 mg/0.5 mL subcutaneou s pen injector active Not Available Not Available Not Available Zepbound 2.5 mg/0.5 mL subcutaneou s pen injector Inject 2.5 mg every week by subcutane ous route for 30 days. 04/18 completed Not Available Not Available Not Available Vitals Date Recorded Body height Body mass index (BMI) Body weight Heart rate Oxygen saturation Oxygen saturation in Arterial blood by Pulse oximetry Systolic And Diastolic Provider Name and Address Organization Details Last Updated DateTime 182.88 cm 31.2 kg/m2 996432. 96 g 62 /min 95 % 95 % 112/74 mm[Hg] Ramilavicky [facility] 09:40:19 Social History Question Answer Notes LastModified by Organizat ion Details LastModified Time Tobacco Smoking Status Never Smoker Eileen Napier [facility] 10/21/2021 11:55:36 What Is Your Level Of Caffeine Consumption? None [email or web address] Information not available 10/21/2021 What Was The Date Of Your Most Recent Tobacco Screening? 10/13/2024 Information not available 10/13/2024 Do You Have Smoke And Carbon Monoxide Detectors In Your Home? Yes [email or web address] Information not available 10/21/2021 Are There Any Smokers In Your House? No [email or web address] Information not available 10/21/2021 Do You Use Sunscreen Routinely? Yes [email or web address] Information not available 10/21/2021 Has Tobacco Cessation Counseling Been Provided? No [email or web address] Information not available 10/21/2021 Sex: Male Functional Status Question Answer Note LastModified by Organizat ion Details LastModified Time Do you use any illicit or recreational drugs? No [email or web address] Information not available 10/21/2021 Do you or have you ever used any other forms of tobacco or nicotine? No [email or web address] Information not available 10/21/2021 What is your level of alcohol consumption? None Information not available 10/13/2024 Mental Status None recorded. Family History Relationship Description Onset Age of this Age Resolved Age Notes LastModified by Organization Details LastModified Time Sister Suicide [email or web address] Not available 10/21/2021 11:56:06 Medical History No medical history recorded. Immunizations Vaccine Type Date Status Note Provider Nam e and Address Organization Details Recorded Time DTaP-IPV 03/26/2015 completed Eileen Napier [facility] 10/21/2021 11:53:27 Past Encounters Encounter ID Performer Location Encounter Start Date Encounter Closed Date Diagnosis/Indication Diagnosis SNOMED-CT Code Diagnosis ICD10 Code Diagnosis Note [id number] MARIANA DAVILA APRN [facility] [address] [place] [address] 10/13/2024 08:59:04 10/17/2024 15:10:10 Body mass index 30+ - obesity 222480200 Z68.30 Benefits vs risks and side effects discussed with patient.32 .8 04/18/257/2 04/19>> 31.2We will attempt again injectable pending labs. Vitamin D deficiency 347 [address]3460 E55.9 21 06/15/23, no med Essential hypertension 66389368 I10 Patients blood pressure is well controlled on present medical therapy. He is tolerating , without difficulty the current medication s. I have made no changes to our current regimen. Testostero ne level below reference range 608672109 R79.89 Patient evaluated for testicular problems.P atient educated on treatment and goals of therapy. Discussed follow up and orders indicated below. His labwork thus far has not been indicative of low T, and therefore we cannot Rx. Gastroesop hageal reflux disease without esophagitis 601193221 K21.9 Omeprazole 40mg QD.>> not currently takingAdd pepcid and follow up with no improvemen t.Discusse d possible EGDWeight loss would helpHOB >90 at least 2 hours postprandi al. 04/18/24, 10/13/24>> stable Prediabetes 907570266 R7 3.03 5.8>> 09/26/23 Primary insomnia 1878106 F51.01 Trial melatonin, has done trazodone, too sedating.R elated to daughter living on own as well Hyperlipidemia 07067783 E78.5 Recommende d statin 03/2024. He declinesWi ll attempt injectable for weight, CVD if prediabeti c today - discussed Health Concerns Section Related Observation LastModified by Organization Detai ls LastModified Time None Recorded Concern Status LastModified by Organization Details LastModified Time None Recorded Payers Encounter Date Sequence Insurance Name Policy Number Policy Bahena Covered Member ID Bahena Member ID Guarantor Name 10/13/2024 1 [place] [id number] Chris Williamson [id number] Chris Williamson Notes Date Note Type Note Provider Name and Address Organization Details Recorded Time 10/13/2024 text/html Recheck He has a past medical history of hypertension, well controlled on losartan 25mg QD, as well as low testosterone. He had been previously getting testosterone from [place]. His T was so high at some point he became polycythemic and had to do therapeutic phlebotomy. Doing well in terms of joint aches and pains. Seems like it is worse in the winter, per patient. Exercising, working out. Doing well with weight. Would like to be on testo again, but knows we cannot Rx/ Did not go through with ADELINA eval, states allie was told it was minimal . Sleeps overall ok, but still deals with some restless sleep. Daughter lives on her own, moved out recently. Reports stress related to that. She does have life 360, still stresses him out.Has tone trazodone, this made him too sleepy. No other concerns. MARIANA DAVILA, [employer]ER [address] [place], [id number], [facility] 10/13/2024 10:50:53
--- OUTSIDE RECORDS SUMMARY | 2024-10-18 09:11 | XMS_ITS | Data Portability ---
Author Organization [facility] Conklin DODSON CLOSED Address [address] [place] [address] Care Team Providers Care Certified Nurse Aide Name Role Phone TIMOTHY KRISHNA JR General Surgeon MARIANA DAVILA Primary Care Provider Assessment No assessment recorded. Plan of Treatment Reminders Order Date Submit Date Provider Last Modified By Organization Details Last Modified Time Details Appointments None recorded. Lab TSH, serum, reflex free T4 2024 025 [facility], [address] [place] [address], [id number], 5 12:23:14 lipid panel, serum 2024 025 [facility], [address] [place] [address], [id number], 5 12:41:23 PSA, total, serum or plasma 2024 025 [facility], [address] [place] [address], [address], 5 12:23:16 vitamin D, 25-hydroxy, total, serum 2024 025 [facility], [address] [place] [address], [address], 5 13:08:28 CBC w/ auto diff 2024 025 [facility], [address] [place] [address], [address], 5 12:12:33 CMP, serum or plasma 2024 025 [facility], [address] [place] [address], [address], 5 12:41:21 testosteron e, free, serum 2024 025 [facility], [address] [place] [address], [address], 5 08:12:33 testosteron e, total, serum 2024 025 [facility], [address] [place] [address], [address], 5 12:23:15 glycohemogl obin, total, blood 2024 025 [facility], [address] [place] [address], [address], 5 12:03:11 vitamin D, 25-hydroxy, total, serum 2023 024 [facility], [address] [place] [address], [address], 4 10:48:18 CBC w/ auto diff 2023 024 [facility], [address] [place] [address], [address], 4 10:03:22 CMP, serum or plasma 2023 024 [facility], [address] [place] [address], [address], 4 11:28:12 testosteron e, free, serum 2023 024 [facility], [address] [place] [address], [address], 4 10:12:53 testosteron e, total, serum 2023 024 [facility], [address] [place] [address], [address], 4 11:28:09 glycohemogl obin, total, blood 2023 024 [facility], [address] [place] [address], [address], 4 10:17:06 Referral None recorded. Procedures home sleep testing (PROC) 2024 025 [facility]-[address] [place] [address] Pulmonary, [address] [place] [address], [address], 5 14:09:00 home sleep testing (PROC) 2024 025 [facility]-[address] [place] [address] Pulmonary, [address] [place] [address], [address], 5 09:55:12 Surgeries None recorded. Imaging XR, chest, 2 view 2023 024 [facility], [address] [place] [address], [address], 4 09:07:27 Medication Orders ramelteon 8 mg tablet [address] [facility], [address] [place] [address], [facility] [address], [address], 5 10:16:34 Medrol (Joey) 4 mg tablets in a dose pack [address] [facility], [address] [place] [address], [facility] [address], [address], 5 10:03:33 montelukast 10 mg tablet [address] [facility], [address] [place] [address], [facility], [place], [address], 5 10:36:25 loratadine 10 mg tablet [address] [facility], [address] [place] [address], [facility], [place], [address], 5 10:26:22 Medrol (Joey) 4 mg tablets in a dose pack [address], [address] [place] [address], [facility], [place], [address], 5 09:45:21 fluticasone propionate 50 mcg/actuati on nasal spray,suspe nsion [address] [facility], [address] [place] [address], [facility], [place], [address], 4 08:37:23 Zepbound 2.5 mg/0.5 mL subcutaneou s pen injector [address] [facility], [address] [place] [address], [facility], [place], [address], 5 10:57:24 Patient TargetsNo targets recorded. Patient Instructions Encounter Date Encounter Id Patient Instructions Last Modified By Organization Details Last Modified Time 09/26/2023 [id number] gastroesophageal reflux disease (GERD): care instructions Not available 09/26/2023 08:36:58 Body Mass Index: Care Instructions-LC Not available 09/26/2023 08:36:58 04/18/2024 [id number] gastroesophageal reflux disease (GERD): care instructions Not available 04/18/2024 10:08:30 Body Mass Index: Care Instructions-LC Not available 04/18/2024 10:08:30 10/13/2024 [id number] gastroesophageal reflux disease (GERD): care instructions Not available 10/13/2024 10:14:02 Body Mass Index: Care Instructions-LC Not available 10/13/2024 10:14:02 Reason for Referral None Reported. Results Created Date Observation Date Name Description Value Unit Range Abnormal Flag Note LastModifiedBy Organization Detail LastModifiedTime 09/26/19 24 09/26/2023 COMPL ETE BLOOD COUNT white blood cells 4.9 10*3/ uL 3.8-10 .8 normal Not Available [facility] [address] [place] [address], [address], 09/26/2023 10:03:22 09/26/19 24 09/26/2023 COMPL ETE BLOOD COUNT red blood cells 5.18 10*6/ uL 4.20-5 .80 normal Not Available [facility] [address] [place] [address], [address], 09/26/2023 10:03:22 09/26/19 24 09/26/2023 COMPL ETE BLOOD COUNT hemoglobin 16.6 g/dL 14.0-1 8.0 normal Not Available [facility] [address] [place] [address], [address], 09/26/2023 10:03:22 09/26/19 24 09/26/2023 COMPL ETE BLOOD COUNT hematocrit 47.8 % 40.0-5 2.0 normal Not Available [facility] [address] [place] [address], [address], 09/26/2023 10:03:22 09/26/19 24 09/26/2023 COMPL ETE BLOOD COUNT MCV 92 fL 80-100 normal Not Available [facility] [address] [place] [address], [address], 09/26/2023 10:03:22 09/26/19 24 09/26/2023 COMPL ETE BLOOD COUNT MCH 32 pg 26-35 normal Not Available [facility] [address] [place] [address], [address], 09/26/2023 10:03:22 09/26/19 24 09/26/2023 COMPL ETE BLOOD COUNT MCHC 35 g/dL 32-36 normal Not Available [facility] [address] [place] [address], [address], 09/26/2023 10:03:22 09/26/19 24 09/26/2023 COMPL ETE BLOOD COUNT RDW 13.5 % 11.0-1 5.0 normal Not Available [facility] [address] [place] [address], [address], 09/26/2023 10:03:22 09/26/19 24 09/26/2023 COMPL ETE BLOOD COUNT MPV 9.3 fL 6.2-10 .5 normal Not Available [facility] [address] [place] [address], [address], 09/26/2023 10:03:22 09/26/19 24 09/26/2023 COMPL ETE BLOOD COUNT platelet count 235 10*3/ uL 150-40 0 normal Not Available [facility] [address] [place] [address], [address], 09/26/2023 10:03:22 09/26/19 24 09/26/2023 COMPL ETE BLOOD COUNT neutrophil,a bsolute 2.1 10*3/ uL 1.6-8. 4 normal Not Available [facility] [address] [place] [address], [address], 09/26/2023 10:03:22 09/26/19 24 09/26/2023 COMPL ETE BLOOD COUNT lymphocyte,a bsolute 1.9 10*3/ uL 0.4-5. 1 normal Not Available [facility] [address] [place] [address], [address], 09/26/2023 10:03:22 09/26/19 24 09/26/2023 COMPL ETE BLOOD COUNT monocyte,abs olute 0.7 10*3/ uL 0.0-1. 2 normal Not Available [facility] [address] [place] [address], [address], 09/26/2023 10:03:22 09/26/19 24 09/26/2023 COMPL ETE BLOOD COUNT eosinophil,a bsolute 0.1 10*3/ uL 0.0-0. 8 normal Not Available [facility] [address] [place] [address], [address], 09/26/2023 10:03:22 09/26/19 24 09/26/2023 COMPL ETE BLOOD COUNT basophil,abs olute 0.0 10*3/ uL 0.0-0. 3 normal Not Available [facility] [address] [place] [address], [address], 09/26/2023 10:03:22 09/26/19 24 09/26/2023 COMPL ETE BLOOD COUNT % neutrophils 43.7 % 42.0-7 8.0 normal Not Available [facility] [address] [place] [address], [address], 09/26/2023 10:03:22 09/26/19 24 09/26/2023 COMPL ETE BLOOD COUNT % lymphocytes 38.2 % 11.0-4 7.0 normal Not Available [facility] [address] [place] [address], [address], 09/26/2023 10:03:22 09/26/19 24 09/26/2023 COMPL ETE BLOOD COUNT % monocytes 15.1 % 0.0-11 .0 high Not Available [facility] [address] [place] [address], [address], 09/26/2023 10:03:22 09/26/19 24 09/26/2023 COMPL ETE BLOOD COUNT % eosinophils 2.5 % 0.0-7. 0 normal Not Available [facility] [address] [place] [address], [address], 09/26/2023 10:03:22 09/26/19 24 09/26/2023 COMPL ETE BLOOD COUNT % basophils 0.5 % 0.0-3. 0 normal Not Available [facility] [address] [place] [address], [address], 09/26/2023 10:03:22 09/26/19 24 09/26/2023 COMPL ETE BLOOD COUNT nucleated red cells 0.3 % 0.0-0. 9 normal Not Available [facility] [address] [place] [address], [address], 09/26/2023 10:03:22 09/26/19 24 09/26/2023 COMPL ETE BLOOD COUNT nucleated RBCs, absolute 0.02 10*3/ uL not estab. normal Not Available [facility] [address] [place] [address], [address], 09/26/2023 10:03:22 09/26/19 24 09/26/2023 GLYCO HEMOG LOBIN A1C glyco HGB A1C 5.8 % 0.0-5. 6 high Not Available [facility] [address] [place] [address], [address], 09/26/2023 10:17:06 09/26/19 24 09/26/2023 GLYCO HEMOG LOBIN A1C estimated avg. glucose 120 mg/dL _(lisa c) normal A1c value s betwe en 5.7% to 6.4% indic ate predi abete s. Resul ts 6.5% or great er is diagn ostic of diabe alanis. Ameri can Diabe alanis Assoc iatio n (diab etes. org) Not Available [facility] [address] [place] [address], [address], 09/26/2023 10:17:06 09/26/19 24 09/26/2023 VITAM IN D 25-OH vitamin D 25-oh, total 28 NG/mL >=30 NG/mL abnormal Not Available [facility] [place], [address], 09/26/2023 10:48:18 09/26/19 24 09/26/2023 TESTO STERO NE, TOTAL testosterone , total 545 NG/dL 249-83 6 normal Refer ence range is for age 20-49 years . Not Available [facility] [address] [place] [address], [address], 09/26/2023 11:28:09 09/26/19 24 09/26/2023 COMP. METAB OLIC PANEL glucose 105 mg/dL 74-100 high Not Available [facility] [address] [place] [address], [address], 09/26/2023 11:28:12 09/26/19 24 09/26/2023 COMP. METAB OLIC PANEL blood urea nitrogen 14 mg/dL 6-20 normal Not Available [facility] [address] [place] [address], [address], 09/26/2023 11:28:12 09/26/19 24 09/26/2023 COMP. METAB OLIC PANEL creatinine 0.91 mg/dL 0.70-1 .28 normal Not Available [facility] [address] [place] [address], [address], 09/26/2023 11:28:12 09/26/19 24 09/26/2023 COMP. METAB OLIC PANEL BUN/creatini ne ratio 15 (calc ) 10-20 normal Not Available [facility] [address] [place] [address], [address], 09/26/2023 11:28:12 09/26/19 24 09/26/2023 COMP. METAB OLIC PANEL sodium 141 mmol/ L 136-14 5 normal Not Available [facility] [address] [place] [address], [address], 09/26/2023 11:28:12 09/26/19 24 09/26/2023 COMP. METAB OLIC PANEL potassium 4.0 mmol/ L 3.4-5. 0 normal Not Available [facility] [address] [place] [address], [address], 09/26/2023 11:28:12 09/26/19 24 09/26/2023 COMP. METAB OLIC PANEL chloride 108 mmol/ L 98-107 high Not Available [facility] [address] [place] [address], [address], 09/26/2023 11:28:12 09/26/19 24 09/26/2023 COMP. METAB OLIC PANEL carbon dioxide 25 mmol/ L 22-31 normal Not Available [facility] [address] [place] [address], [address], 09/26/2023 11:28:12 09/26/19 24 09/26/2023 COMP. METAB OLIC PANEL anion gap 8 (calc ) 7-25 normal Not Available [facility] [address] [place] [address], [address], 09/26/2023 11:28:12 09/26/19 24 09/26/2023 COMP. METAB OLIC PANEL calcium 9.0 mg/dL 8.6-10 .2 normal Not Available [facility] [address] [place] [address], [address], 09/26/2023 11:28:12 09/26/19 24 09/26/2023 COMP. METAB OLIC PANEL total protein 6.8 g/dL 6.4-8. 3 normal Not Available [facility] [address] [place] [address], [address], 09/26/2023 11:28:12 09/26/19 24 09/26/2023 COMP. METAB OLIC PANEL albumin 4.0 g/dL 3.5-5. 2 normal Not Available [facility] [address] [place] [address], [address], 09/26/2023 11:28:12 09/26/19 24 09/26/2023 COMP. METAB OLIC PANEL globulin 2.8 1.5-4. 5 normal Not Available [facility] [address] [place] [address], [address], 09/26/2023 11:28:12 09/26/19 24 09/26/2023 COMP. METAB OLIC PANEL albumin/glob ulin ratio 1.4 (calc ) 1.1-2. 5 normal Not Available [facility] [address] [place] [address], [address], 09/26/2023 11:28:12 09/26/19 24 09/26/2023 COMP. METAB OLIC PANEL bilirubin, total 0.7 mg/dL 0.1-1. 2 normal Not Available [facility] [address] [place] [address], [address], 09/26/2023 11:28:12 09/26/19 24 09/26/2023 COMP. METAB OLIC PANEL alkaline phosphatase 93 U/L 40-129 normal Not Available [facility] [address] [place] [address], [address], 09/26/2023 11:28:12 09/26/19 24 09/26/2023 COMP. METAB OLIC PANEL AST 26 U/L 0-40 normal Not Available [facility] [address] [place] [address], [address], 09/26/2023 11:28:12 09/26/19 24 09/26/2023 COMP. METAB OLIC PANEL ALT 40 U/L 0-41 normal Not Available [facility] [address] [place] [address], [address], 09/26/2023 11:28:12 09/26/19 24 09/26/2023 COMP. METAB OLIC PANEL GFR 103 >= 60 normal NOT E New calcu latio n for GFR (CKD- EPI 2020) is formu lated witho ut race adjus tment facto rs at the recom menda tion of the [employer] ation and Ameri can Socie ty of Nephr ology . This calcu latio n has not been valid ated in pregn ant women . For pedia tric patie nts refer to https ://ariel guillory.melanie woo/gil jacksonal s/KDO QI/gf r_cal culat orPed Not Available [facility] [address] [place], [address], 09/26/2023 11:28:12 09/26/19 24 10/02/2023 TESTO STERO NE, FREE testosterone , free 52.4 pg/mL 46.0-2 24.0 normal MDF med fusio n [address] [facility] [address] [facility] [address] [phone] Homa Morley MD, PhD Not Available [facility] [address] [place], [address], 10/02/2023 10:12:53 04/18/19 25 04/18/2024 GLYCO HEMOG LOBIN A1C glyco HGB A1C 5.5 % 0.0-5. 6 normal Not Available [facility] [address] [place], [address], 04/18/2024 12:03:11 04/18/19 25 04/18/2024 GLYCO HEMOG LOBIN A1C estimated avg. glucose 111 mg/dL _(lisa c) normal A1c value s betwe en 5.7% to 6.4% indic ate predi abete s. Resul ts 6.5% or great er is diagn ostic of diabe alanis. Ameri can Diabe alanis Assoc iatio n (diab etes. org) Not Available [facility] [address] [place], [address], 04/18/2024 12:03:11 04/18/19 25 04/18/2024 COMPL ETE BLOOD COUNT white blood cells 4.9 10*3/ uL 3.8-10 .8 normal RESUL TS RECHE CKED Not Available [facility] [address] [place], [address], 04/18/2024 12:12:33 04/18/19 25 04/18/2024 COMPL ETE BLOOD COUNT red blood cells 5.77 10*6/ uL 4.20-5 .80 normal Not Available [facility] [address] [place] [address], [address], 04/18/2024 12:12:33 04/18/19 25 04/18/2024 COMPL ETE BLOOD COUNT hemoglobin 18.3 g/dL 14.0-1 8.0 high Not Available [facility] [address] [place] [address], [address], 04/18/2024 12:12:33 04/18/19 25 04/18/2024 COMPL ETE BLOOD COUNT hematocrit 52.3 % 40.0-5 2.0 high Not Available [facility] [address] [place] [address], [address], 04/18/2024 12:12:33 04/18/19 25 04/18/2024 COMPL ETE BLOOD COUNT MCV 91 fL 80-100 normal Not Available [facility] [address] [place] [address], [address], 04/18/2024 12:12:33 04/18/19 25 04/18/2024 COMPL ETE BLOOD COUNT MCH 32 pg 26-35 normal Not Available [facility] [address] [place] [address], [address], 04/18/2024 12:12:33 04/18/19 25 04/18/2024 COMPL ETE BLOOD COUNT MCHC 35 g/dL 32-36 normal Not Available [facility] [address] [place] [address], [address], 04/18/2024 12:12:33 04/18/19 25 04/18/2024 COMPL ETE BLOOD COUNT RDW 13.0 % 11.0-1 5.0 normal Not Available [facility] [address] [place] [address], [address], 04/18/2024 12:12:33 04/18/19 25 04/18/2024 COMPL ETE BLOOD COUNT MPV 9.2 fL 6.2-10 .5 normal Not Available [facility] [address] [place] [address], [address], 04/18/2024 12:12:33 04/18/19 25 04/18/2024 COMPL ETE BLOOD COUNT platelet count 229 10*3/ uL 150-40 0 normal Not Available [facility] [address] [place] [address], [address], 04/18/2024 12:12:04/18/19 25 04/18/2024 COMPL ETE BLOOD COUNT neutrophil,a bsolute 2.1 10*3/ uL 1.6-8. 4 normal Not Available [facility] [address] [place] [address], [address], 04/18/2024 12:12:33 04/18/19 25 04/18/2024 COMPL ETE BLOOD COUNT lymphocyte,a bsolute 1.8 10*3/ uL 0.4-5. 1 normal Not Available [facility] [address] [place] [address], [address], 04/18/2024 12:12:33 04/18/19 25 04/18/2024 COMPL ETE BLOOD COUNT monocyte,abs olute 0.9 10*3/ uL 0.0-1. 2 normal Not Available [facility] [address] [place] [address], [address], 04/18/2024 12:12:33 04/18/19 25 04/18/2024 COMPL ETE BLOOD COUNT eosinophil,a bsolute 0.1 10*3/ uL 0.0-0. 8 normal Not Available [facility] [address] [place] [address], [address], 04/18/2024 12:12:33 04/18/19 25 04/18/2024 COMPL ETE BLOOD COUNT basophil,abs olute 0.0 10*3/ uL 0.0-0. 3 normal Not Available [facility] [address] [place] [address], [address], 04/18/2024 12:12:33 04/18/19 25 04/18/2024 COMPL ETE BLOOD COUNT % neutrophils 43.4 % 42.0-7 8.0 normal Not Available [facility] [address] [place] [address], [address], 04/18/2024 12:12:33 04/18/1904/18/2024 COMPL ETE BLOOD COUNT % lymphocytes 36.0 % 11.0-4 7.0 normal Not Available [facility] [address] [place] [address], [address], 04/18/2024 12:12:33 04/18/1904/18/2024 COMPL ETE BLOOD COUNT % monocytes 18.2 % 0.0-11 .0 high Not Available [facility] [address] [place] [address], [address], 04/18/2024 12:12:33 04/18/1904/18/2024 COMPL ETE BLOOD COUNT % eosinophils 2.0 % 0.0-7. 0 normal Not Available [facility] [address] [place] [address], [address], 04/18/2024 12:12:33 04/18/1904/18/2024 COMPL ETE BLOOD COUNT % basophils 0.4 % 0.0-3. 0 normal Not Available [facility] [address] [place] [address], [address], 04/18/2024 12:12:33 04/18/1904/18/2024 COMPL ETE BLOOD COUNT nucleated red cells 0.2 % 0.0-0. 9 normal Not Available [facility] [address] [place] [address], [address], 04/18/2024 12:12:33 04/18/19 25 04/18/2024 COMPL ETE BLOOD COUNT nucleated RBCs, absolute 0.01 10*3/ uL not estab. normal Not Available [facility] [address] [place] [address], [address], 04/18/2024 12:12:33 04/18/19 25 04/18/2024 TSH WITH REFLE X FT4 TSH with reflex FT4 1.470 u[IU] /mL 0.270- 4.200 normal Not Available [facility] [address] [place] [address], [address], 04/18/2024 12:23:14 04/18/19 25 04/18/2024 TESTO STERO NE, TOTAL testosterone , total 688 NG/dL 249-83 6 normal Refer ence range is for age 20-49 years . Not Available [facility] [place], [address], 04/18/2024 12:23:15 04/18/19 25 04/18/2024 PROST ATE SPECI FIC AG prostate specific Ag 0.539 NG/mL 0.000- 3.100 normal This test was perfo rmed using Dasia e801 Elect dasia milum inesc ent metho d. The test metho d is based on WHO-s tanda rdize d calib ratio n. Value s obtai keiko from diffe rent assay metho ds or manuf actur ers may not be marley rable . Not Available [facility] [place], [address], 04/18/2024 12:23:16 04/18/19 25 04/18/2024 COMP. METAB OLIC PANEL glucose 100 mg/dL 74-100 normal Not Available [facility] [place], [address], 04/18/2024 12:41:20 04/18/19 25 04/18/2024 COMP. METAB OLIC PANEL blood urea nitrogen 16 mg/dL 6-20 normal Not Available [facility] [address] [place] [address], [address], 04/18/2024 12:41:20 04/18/19 25 04/18/2024 COMP. METAB OLIC PANEL creatinine 0.99 mg/dL 0.70-1 .28 normal Not Available [facility] [address] [place] [address], [address], 04/18/2024 12:41:20 04/18/19 25 04/18/2024 COMP. METAB OLIC PANEL BUN/creatini ne ratio 16 (calc ) 10-20 normal Not Available [facility] [address] [place] [address], [address], 04/18/2024 12:41:20 04/18/19 25 04/18/2024 COMP. METAB OLIC PANEL sodium 138 mmol/ L 136-14 5 normal Not Available [facility] [address] [place] [address], [address], 04/18/2024 12:41:20 04/18/19 25 04/18/2024 COMP. METAB OLIC PANEL potassium 4.0 mmol/ L 3.4-5. 0 normal Not Available [facility] [address] [place] [address], [address], 04/18/2024 12:41:20 04/18/19 25 04/18/2024 COMP. METAB OLIC PANEL chloride 103 mmol/ L 98-107 normal Not Available [facility] [address] [place] [address], [address], 04/18/2024 12:41:20 04/18/19 25 04/18/2024 COMP. METAB OLIC PANEL carbon dioxide 24 mmol/ L 22-31 normal Not Available [facility] [address] [place] [address], [address], 04/18/2024 12:41:20 04/18/19 25 04/18/2024 COMP. METAB OLIC PANEL anion gap 11 (calc ) 7-25 normal Not Available [facility] [address] [place] [address], [address], 04/18/2024 12:41:20 04/18/19 25 04/18/2024 COMP. METAB OLIC PANEL calcium 9.4 mg/dL 8.6-10 .2 normal Not Available [facility] [address] [place] [address], [address], 04/18/2024 12:41:20 04/18/19 25 04/18/2024 COMP. METAB OLIC PANEL total protein 7.1 g/dL 6.4-8. 3 normal Not Available [facility] [address] [place] [address], [address], 04/18/2024 12:41:20 04/18/19 25 04/18/2024 COMP. METAB OLIC PANEL albumin 4.3 g/dL 3.5-5. 2 normal Not Available [facility] [address] [place] [address], [address], 04/18/2024 12:41:20 04/18/19 25 04/18/2024 COMP. METAB OLIC PANEL globulin 2.8 1.5-4. 5 normal Not Available [facility] [address] [place] [address], [address], 04/18/2024 12:41:20 04/18/19 25 04/18/2024 COMP. METAB OLIC PANEL albumin/glob ulin ratio 1.5 (calc ) 1.1-2. 5 normal Not Available [facility] [address] [place] [address], [address], 04/18/2024 12:41:20 04/18/19 25 04/18/2024 COMP. METAB OLIC PANEL bilirubin, total 1.3 mg/dL 0.1-1. 2 high Pleas e call the Lab withi n 24 hrs at 258-4 150 if fract ionat ed Bilir ubin is norman ed. Not Available [facility] [address] [place], [address], 04/18/2024 12:41:20 04/18/19 25 04/18/2024 COMP. METAB OLIC PANEL alkaline phosphatase 116 U/L 40-129 normal Not Available [facility] [address] [place], [address], 04/18/2024 12:41:20 04/18/19 25 04/18/2024 COMP. METAB OLIC PANEL AST 29 U/L 0-40 normal Not Available [facility] [address] [place], [address], 04/18/2024 12:41:20 04/18/19 25 04/18/2024 COMP. METAB OLIC PANEL ALT 41 U/L 0-41 normal Not Available [facility] [address] [place], [address], 04/18/2024 12:41:20 04/18/19 25 04/18/2024 COMP. METAB OLIC PANEL GFR 93 >= 60 normal NOT E New calcu latio n for GFR (CKD- EPI 2020) is formu lated witho ut race adjus tment facto rs at the recom menda tion of the Doug Hidalgo [facility] . This calcu latio n has not been valid ated in pregn ant women . For pedia tric patie nts refer to https ://ariel guillory.o rg/pr maxine kaplan s/GONZALOO QI/gf r_cal culat orPed Not Available [facility] [address] [place], [address], 04/18/2024 12:41:20 04/18/19 25 04/18/2024 LIPID PROFI LE HDL cholesterol 27 mg/dL 40-242 low Not Available [facility] [address] [place], [address], 04/18/2024 12:41:23 04/18/19 25 04/18/2024 LIPID PROFI LE triglyceride s 138 mg/dL 0-149 normal TRIGL YCERI DE RANGE S JAZZY L: < 150 BORDE RLINE HIGH: 150 - 199 HIGH: 200 - 499 VERY HIGH: > OR = 500 Not Available [facility] [address] [place] [address], [address], 04/18/2024 12:41:23 04/18/19 25 04/18/2024 LIPID PROFI LE cholesterol 171 mg/dL 0-199 normal FELECIA STERO L (TOTA L) RANGE S NORMAN ABLE: < 200 BORDE RLINE : 200 - 239 HIGHE R RISK: > 239 Not Available [facility] [address] [place] [address], [address], 04/18/2024 12:41:23 04/18/19 25 04/18/2024 LIPID PROFI LE LDL cholesterol 116 mg/dL _(lisa c) 0-99 high LDL FELECIA STERO L RANGE S OPTIM AL: < 100 NEAR/ ABOVE OPTIM AL: 100 - 129 BORDE RLINE HIGH: 130 - 159 HIGH: 160 - 189 VERY HIGH: > OR = 190 Not Available [facility] [address] [place] [address], [address], 04/18/2024 12:41:23 04/18/19 25 04/18/2024 VITAM IN D 25-OH vitamin D 25-oh, total 32 NG/mL >=30 NG/mL normal Not Available [facility] [address] [place] [address], [address], 04/18/2024 13:08:27 04/18/19 25 04/24/2024 TESTO STERO NE, FREE testosterone , free 64.8 pg/mL 46.0-2 24.0 normal MDF med fusio n [address] [facility] [address] [facility] [address] [phone] Homa Morley MD, PhD Not Available [facility] [address] [place] [address], [address], 04/24/2024 08:12:33 10/14/19 25 10/13/2024 COMPL ETE BLOOD COUNT white blood cells 6.0 10*3/ uL 3.8-10 .8 normal Not Available [facility] [address] [place] [address], [address], 10/13/2024 10:05:14 10/14/19 25 10/13/2024 COMPL ETE BLOOD COUNT red blood cells 5.13 10*6/ uL 4.20-5 .80 normal Not Available [facility] [address] [place] [address], [address], 10/13/2024 10:05:14 10/14/19 25 10/13/2024 COMPL ETE BLOOD COUNT hemoglobin 16.3 g/dL 14.0-1 8.0 normal Not Available [facility] [address] [place] [address], [address], 10/13/2024 10:05:14 10/14/19 25 10/13/2024 COMPL ETE BLOOD COUNT hematocrit 46.0 % 40.0-5 2.0 normal Not Available [facility] [address] [place] [address], [address], 10/13/2024 10:05:14 10/14/19 25 10/13/2024 COMPL ETE BLOOD COUNT MCV 90 fL 80-100 normal Not Available [facility] [address] [place] [address], [address], 10/13/2024 10:05:14 10/14/19 25 10/13/2024 COMPL ETE BLOOD COUNT MCH 32 pg 26-35 normal Not Available [facility] [address] [place] [address], [address], 10/13/2024 10:05:14 10/14/19 25 10/13/2024 COMPL ETE BLOOD COUNT MCHC 35 g/dL 32-36 normal Not Available [facility] [address] [place] [address], [address], 10/13/2024 10:05:14 10/14/19 25 10/13/2024 COMPL ETE BLOOD COUNT RDW 13.5 % 11.0-1 5.0 normal Not Available [facility] [address] [place] [address], [address], 10/13/2024 10:05:14 10/14/19 25 10/13/2024 COMPL ETE BLOOD COUNT MPV 9.0 fL 6.2-10 .5 normal Not Available [facility] [address] [place] [address], [address], 10/13/2024 10:05:14 10/14/19 25 10/13/2024 COMPL ETE BLOOD COUNT platelet count 216 10*3/ uL 150-40 0 normal Not Available [facility] [address] [place] [address], [address], 10/13/2024 10:05:14 10/14/19 25 10/13/2024 COMPL ETE BLOOD COUNT neutrophil,a bsolute 2.5 10*3/ uL 1.6-8. 4 normal Not Available [facility] [address] [place] [address], [address], 10/13/2024 10:05:14 10/14/19 25 10/13/2024 COMPL ETE BLOOD COUNT lymphocyte,a bsolute 2.4 10*3/ uL 0.4-5. 1 normal Not Available [facility] [address] [place] [address], [address], 10/13/2024 10:05:14 10/14/19 25 10/13/2024 COMPL ETE BLOOD COUNT monocyte,abs olute 0.9 10*3/ uL 0.0-1. 2 normal Not Available [facility] [address] [place] [address], [address], 10/13/2024 10:05:14 10/14/19 25 10/13/2024 COMPL ETE BLOOD COUNT eosinophil,a bsolute 0.1 10*3/ uL 0.0-0. 8 normal Not Available [facility] [address] [place] [address], [address], 10/13/2024 10:05:14 10/14/19 25 10/13/2024 COMPL ETE BLOOD COUNT basophil,abs olute 0.0 10*3/ uL 0.0-0. 3 normal Not Available [facility] [address] [place] [address], [address], 10/13/2024 10:05:14 10/14/19 25 10/13/2024 COMPL ETE BLOOD COUNT % neutrophils 42.5 % 42.0-7 8.0 normal Not Available [facility] [address] [place] [address], [address], 10/13/2024 10:05:14 10/14/19 25 10/13/2024 COMPL ETE BLOOD COUNT % lymphocytes 40.5 % 11.0-4 7.0 normal Not Available [facility] [address] [place] [address], [address], 10/13/2024 10:05:14 10/14/19 25 10/13/2024 COMPL ETE BLOOD COUNT % monocytes 14.4 % 0.0-11 .0 high Not Available [facility] [address] [place] [address], [address], 10/13/2024 10:05:14 10/14/19 25 10/13/2024 COMPL ETE BLOOD COUNT % eosinophils 2.1 % 0.0-7. 0 normal Not Available [facility] [address] [place] [address], [address], 10/13/2024 10:05:14 10/14/19 25 10/13/2024 COMPL ETE BLOOD COUNT % basophils 0.5 % 0.0-3. 0 normal Not Available [facility] [address] [place] [address], [address], 10/13/2024 10:05:14 10/14/19 25 10/13/2024 COMPL ETE BLOOD COUNT nucleated red cells 0.0 % 0.0-0. 9 normal Not Available [facility] [address] [place] [address], [address], 10/13/2024 10:05:14 10/14/19 25 10/13/2024 COMPL ETE BLOOD COUNT nucleated RBCs, absolute 0.00 10*3/ uL not estab. normal Not Available [facility] [address] [place] [address], [address], 10/13/2024 10:05:14 10/14/19 25 10/13/2024 GLYCO HEMOG LOBIN A1C glyco HGB A1C 5.6 % 0.0-5. 6 normal Not Available [facility] [address] [place] [address], [address], 10/13/2024 10:11:11 10/14/19 25 10/13/2024 GLYCO HEMOG LOBIN A1C estimated avg. glucose 114 mg/dL _(lisa c) normal A1c value s betwe en 5.7% to 6.4% indic ate predi abete s. Resul ts 6.5% or great er is diagn ostic of diabe alanis. Ameri can Diabe alanis Assoc iatio n (diab etes. org) Not Available [facility] [address] [place] [address], [address], 10/13/2024 10:11:11 10/14/19 25 10/13/2024 LIPID PROFI LE HDL cholesterol 27 mg/dL 40-242 low Not Available [facility] [address] [place] [address], [address], 10/13/2024 10:31:33 10/14/19 25 10/13/2024 LIPID PROFI LE triglyceride s 132 mg/dL 0-149 normal TRIGL YCERI DE RANGE S JAZZY L: < 150 BORDE RLINE HIGH: 150 - 199 HIGH: 200 - 499 VERY HIGH: > OR = 500 Not Available [facility] [address] [place] [address], [address], 10/13/2024 10:31:33 10/14/19 25 10/13/2024 LIPID PROFI LE cholesterol 147 mg/dL 0-199 normal FELECIA STERO L (TOTA L) RANGE S NORMAN ABLE: < 200 BORDE RLINE : 200 - 239 HIGHE R RISK: > 239 Not Available [facility] [address] [place], [address], 10/13/2024 10:31:33 10/14/19 25 10/13/2024 LIPID PROFI LE LDL cholesterol 94 mg/dL _(lisa c) 0-99 normal LDL FELECIA STERO L RANGE S OPTIM AL: < 100 NEAR/ ABOVE OPTIM AL: 100 - 129 BORDE RLINE HIGH: 130 - 159 HIGH: 160 - 189 VERY HIGH: > OR = 190 Not Available [facility] [address] [place] [address], [address], 10/13/2024 10:31:33 10/14/19 25 10/13/2024 LIPID PROFI LE chol/HDL ratio (calc) 5.4 mg/dL normal NO JAZZY L RANGE ESTAB LISHE D FOR FELECIA STERO L/HDL RATIO (CALC ULATE D). Not Available [facility] [address] [place] [address], [address], 10/13/2024 10:31:33 10/14/19 25 10/13/2024 LIPID PROFI LE LDL, direct 105 0-99 high Not Available [facility] [address] [place], [address], 10/13/2024 10:31:33 10/14/19 25 10/13/2024 COMP. METAB OLIC PANEL glucose 93 mg/dL 74-100 normal Not Available [facility] [address] [place] [address], [address], 10/13/2024 10:31:35 10/14/19 25 10/13/2024 COMP. METAB OLIC PANEL blood urea nitrogen 13 mg/dL 6-20 normal Not Available [facility] [address] [place] [address], [address], 10/13/2024 10:31:35 10/14/19 25 10/13/2024 COMP. METAB OLIC PANEL creatinine 1.05 mg/dL 0.70-1 .20 normal Not Available [facility] [address] [place] [address], [address], 10/13/2024 10:31:35 10/14/19 25 10/13/2024 COMP. METAB OLIC PANEL BUN/creatini ne ratio 12 (calc ) 10-20 normal Not Available [facility] [address] [place] [address], [address], 10/13/2024 10:31:35 10/14/19 25 10/13/2024 COMP. METAB OLIC PANEL sodium 138 mmol/ L 136-14 5 normal Not Available [facility] [address] [place] [address], [address], 10/13/2024 10:31:35 10/14/19 25 10/13/2024 COMP. METAB OLIC PANEL potassium 3.9 mmol/ L 3.4-5. 0 normal Not Available [facility] [address] [place] [address], [address], 10/13/2024 10:31:35 10/14/19 25 10/13/2024 COMP. METAB OLIC PANEL chloride 104 mmol/ L 98-107 normal Not Available [facility] [address] [place] [address], [address], 10/13/2024 10:31:35 10/14/19 25 10/13/2024 COMP. METAB OLIC PANEL carbon dioxide 22 mmol/ L 22-31 normal Not Available [facility] [address] [place] [address], [address], 10/13/2024 10:31:35 10/14/19 25 10/13/2024 COMP. METAB OLIC PANEL anion gap 12 (calc ) 7-25 normal Not Available [facility] [address] [place] [address], [address], 10/13/2024 10:31:35 10/14/19 25 10/13/2024 COMP. METAB OLIC PANEL calcium 9.4 mg/dL 8.6-10 .2 normal Not Available [facility] [address] [place] [address], [address], 10/13/2024 10:31:35 10/14/19 25 10/13/2024 COMP. METAB OLIC PANEL total protein 6.6 g/dL 6.4-8. 3 normal Not Available [facility] [address] [place] [address], [address], 10/13/2024 10:31:35 10/14/19 25 10/13/2024 COMP. METAB OLIC PANEL albumin 4.2 g/dL 3.5-5. 2 normal Not Available [facility] [address] [place] [address], [address], 10/13/2024 10:31:35 10/14/19 25 10/13/2024 COMP. METAB OLIC PANEL globulin 2.4 1.5-4. 5 normal Not Available [facility] [address] [place] [address], [address], 10/13/2024 10:31:35 10/14/19 25 10/13/2024 COMP. METAB OLIC PANEL albumin/glob ulin ratio 1.8 (calc ) 1.1-2. 5 normal Not Available [facility] [address] [place] [address], [address], 10/13/2024 10:31:35 10/14/19 25 10/13/2024 COMP. METAB OLIC PANEL bilirubin, total 0.7 mg/dL 0.1-1. 2 normal Not Available [facility] [address] [place], [address], 10/13/2024 10:31:35 10/14/19 25 10/13/2024 COMP. METAB OLIC PANEL alkaline phosphatase 109 U/L 40-129 normal Not Available [facility] [address] [place], [address], 10/13/2024 10:31:35 10/14/19 25 10/13/2024 COMP. METAB OLIC PANEL AST 27 U/L 0-40 normal Not Available [facility] [address] [place], [address], 10/13/2024 10:31:35 10/14/19 25 10/13/2024 COMP. METAB OLIC PANEL ALT 33 U/L 0-41 normal Not Available [facility] [address] [place], [address], 10/13/2024 10:31:35 10/14/19 25 10/13/2024 COMP. METAB OLIC PANEL eGFR 87 >= 60 normal NOT E New calcu latio n for GFR (CKD- EPI 2020) is formu lated witho ut race adjus tment facto rs at the recom menda tion of the Doug Hidalgo y Manjeet chase and Car[facility] watson [facility] . This calcu latio n has not been valid ated in pregn ant women . For pedia tric patie nts refer to https :[email or web address] [email or web address] [email or web address] rg/pr maxine kaplan s/GONZALOO QI/gf r_cal culat orPed Not Available [facility] [address] [place], [address], 10/13/2024 10:31:35 10/14/19 25 10/13/2024 VITAM IN D 25-OH vitamin D 25-oh, total 42 NG/mL >=30 NG/mL normal Not Available [facility] [address] [place], [address], 10/13/2024 10:46:27 10/14/19 25 10/13/2024 PROST ATE [...] not be marley rable . Not Available [facility] [address] [place] [address], [address], 10/13/2024 10:47:09 10/14/19 25 10/13/2024 TSH WITH REFLE X FT4 TSH with reflex FT4 2.530 u[IU] /mL 0.270- 4.200 normal Not Available [facility] [address] [place] [address], [address], 10/13/2024 10:47:11 10/14/19 25 10/13/2024 TESTO STERO NE, TOTAL testosterone , total 679 NG/dL 249-83 6 normal Refer ence range is for age 20-49 years . Not Available [facility] [address] [place] [address], [address], 10/13/2024 10:47:12 10/14/19 25 10/17/2024 TESTO STERO NE, FREE testosterone , free 57.1 pg/mL 46.0-2 24.0 normal MDF med fusio n [address] [facility] [address] [facility] [address] [phone] Homa Morley MD, PhD Not Available [facility] [address] [place] [address], [address], 10/17/2024 14:04:09 09/26/19 24 09/26/2023 XR, chest , 2 view [facility] [address] [place] [address] Patien t Name: BOB guillory : [id number] Jermaine guillory Orderi ng Provid er: MARIANA DAVILA EXAM DATE: 2023 EXAM: XR CHEST PA/LAT CLINIC AL INFORM ATION: Cough. IMAGES PROVID ED: PA and latera l views of the chest. COMPAR NATI: None. FINDIN GS: Heart size is within normal limits . Lung crespo are clear. IMPRES JEM: No acute cardio pulmon annabelle change s. Interp reted By: Timothy Escamilla MD Electr onical ly Signed By: Timothy Escamilla MD on 09/26/19 9:02 AM [facility] [address], [address], 09/26/2023 10:19:39 Result Notes Documentation Provider Name and Address Organization Details Recorded Time Xr, Chest, 2 View : [address] [address] Patient Name: BOB WILLIAMSON Patient : 1975 Patient Ordering Provider: MARIANA DAVILA EXAM DATE: 09/26/2023 EXAM: XR CHEST PA/LAT CLINICAL INFORMATION: Cough. IMAGES PROVIDED: PA and lateral views of the chest. COMPARISON: None. FINDINGS: Heart size is within normal limits. Lung crespo are clear. IMPRESSION: No acute cardiopulmonary changes. Interpreted By: Timothy Escamilla MD ANA DAVILA, [employer] P[employer]HER [address] [place] [address], [address], [facility] 09/26/2023 09:16:46 Problems Name Problem SNOMED Code Status Onset Date Resolution Date Notes Provider Name and Address Organization Details Recorded Time Umbilical hernia 594418778 Active 2021 TIMOTHY KRISHNA JR, MD [address] [place] [address], [address], [facility] 15:03:19 Low back pain 376513847 Active 2021 TIMOTHY KRISHNA JR, MD [address] [place] [address], [address], [facility] 2 08:51:17 History of polyp of colon 158397468 Active 2023 MARIANA DAVILA, [employer] [address] [place], [address], [facility] 4 17:54:08 Essential hypertension 82035389 Active 2023 MARIANA DAVILA, [employer] [address] [place], [address], [facility] 4 17:54:14 Gastroesophage al reflux disease without esophagitis 225255445 Active 2023 MARINAA DAVILA, [employer] [address] [place], [address], [facility] 4 17:54:24 Problem Notes None recorded. Procedures Surgical History Date Name Laterality Status Provider Name and Address Organization Details Recorded Time 5 Skin Tag Removal completed Mary Ann Morris [facility] 05/16/2024 09:06:31 4 Destruction BN Lesions completed Clementine Pickens [facility] 09/21/2023 09:10:32 4 Skin Tag Removal completed MARIANA DAVILA, [employer] [address] [place], [address], [facility] 06/18/2023 17:59:37 5 vasectomy completed Eileen Napier [facility] 10/21/2021 11:54:31 open reduction of dislocation of ankle completed [facility] 01/05/2022 14:11:34 hernia repair completed [facility] 01/31/2022 08:22:16 Imaging Results None recorded. Procedure [...] propionate 50 mcg/actuati on nasal spray,suspe nsion Refugio 1 spray every day by intranasa l [...] height Body mass index (BMI) Body weight Oxygen saturation Oxygen saturation in Arterial blood by Pulse oximetry Heart rate Systolic And Diastolic Provider Name and Address Organization Details Last Updated DateTime 182.88 cm 32.8 kg/m2 643521. 56 g 95 % 95 % 69 /min 120/90 mm[Hg] Patrice Kali martinez [facility] 5 10:06:06 Date Recorded Body height Body mass index (BMI) Body weight Heart rate Oxygen saturation Oxygen saturation in Arterial blood by Pulse oximetry Provider Name and Address Organization Details Last Updated DateTime 5 182.88 cm 32.5 kg/m2 923785. 17 g 70 /min 95 % 95 % Brittany Hernández [facility] 5 08:55:28 Date Recorded Body height Body mass index (BMI) Body weight Heart rate Oxygen saturation Oxygen saturation in Arterial blood by Pulse oximetry Systolic And Diastolic Provider Name and Address Organization Details Last Updated DateTime 4 182.88 cm 33.8 kg/m2 895998. 5 g 72 /min 95 % 95 % 120/78 mm[Hg] Jose Evan [facility] 4 08:11:47 Date Recorded Body height Body mass index (BMI) Body weight Heart rate Oxygen saturation Oxygen saturation in Arterial blood by Pulse oximetry Systolic And Diastolic Provider Name and Address Organization Details Last Updated DateTime 5 182.88 cm 31.2 kg/m2 817843. 96 g 62 /min 95 % 95 % 112/74 mm[Hg] Ramila South [facility] 5 09:40:19 Social History Question Answer Notes LastModified by Organizat ion Details LastModified Time Tobacco Smoking Status Never Smoker Eileen [facility] 10/21/2021 11:55:36 What Is Your Level Of Caffeine Consumption? None [email or web address] Information not available 10/21/2021 What Was The Date Of Your Most Recent Tobacco Screening? 10/13/2024 Information not available 10/13/2024 Do You Have Smoke And Carbon Monoxide Detectors In Your Home? Yes Information not available 10/21/2021 Are There Any Smokers In Your House? No Information not available 10/21/2021 Do You Use Sunscreen Routinely? Yes [email or web address] Information not available 10/21/2021 Has Tobacco Cessation Counseling Been Provided? No [email or web address] Information not available 10/21/2021 Sex: Male Functional Status Question Answer Note LastModified by Organizat ion Details LastModified Time Do you use any illicit or recreational drugs? No Information not available 10/21/2021 Do you or have you ever used any other forms of tobacco or nicotine? No Information not available 10/21/2021 What is your level of alcohol consumption? None Information not available 10/13/2024 Mental Status None recorded. Family History Relationship Description Onset Age of this Age Resolved Age Notes LastModified by Organization Details LastModified Time Sister Suicide [email or web address] Not available 10/21/2021 11:56:06 Medical History No medical history recorded. Immunizations Vaccine Type Date Status Note Provider Nam e and Address Organization Details Recorded Time DTaP-IPV 03/26/2015 completed Eileen [facility] 10/21/2021 11:53:27 Past Encounters Encounter ID Performer Location Encounter Start Date Encounter Closed Date Diagnosis/Indication Diagnosis SNOMED-CT Code Diagnosis ICD10 Code Diagnosis Note [id number] MARIANA DAVILA APRN [facility] [address] [place] [address] 10/21/2021 11:44:20 10/25/2021 11:03:51 Adult health examination 384152223 Z00.00 Testostero ne level below reference range 632536618 R79.89 Patient evaluated for testicular problems. Patient educated on treatment and goals of therapy. Discussed follow up and orders indicated below. Essential hypertension 71497847 I10 Patients blood pressure is well controlled on present medical therapy. He is tolerating , without difficulty the current medication s. I have made no changes to our current regimen. [id number] MARIANA DAVILA APRN [facility] [address] [place] [address] 12/21/2021 08:09:15 12/21/2021 09:36:21 Adult health examination 202675022 Z00.00 Umbilical hernia 0216272 07 K42.9 + painDiscus sed CT, wearing abdominal binder when up and movingNo heavy lifting, strainingW ill ref to surgery Thoracic back pain 51742 8004 M54.6 See above plan [id number] TIMOTHY KRISHNA JR, MD GENERAL SURGERY [facility] [address] [place] [address] 01/05/2022 13:52:15 01/10/2022 12:33:15 Umbilical hernia [id number] K42.9 Symptomati c umbilical hernia. I explained to him he can have laparoscop ic repair with mesh. There will be 3% chance of severe complicati on which might include long-term pain, mesh related complicati on. There is small chance of recurrence . I explained to him that if the skin of the umbilicus was very thinned out and at risk for healing problem that I would excise his umbilicus. He states he does not care if I excise his umbilicus. He does admit 2 episodes of black stool. He has no anemia. He has no symptoms of peptic ulcer disease. He takes omeprazole daily. If these continue he will need GI work-up. [id number] TIMOTHY KRISHNA JR, MD SURGERY SCHEDULE [address] [place] [address] 01/20/2022 08:09:12 01/20/2022 08:11:14 [id number] TIMOTHY KRISHNA JR, MD GENERAL SURGERY [address] [address] 01/31/2022 08:09:05 01/31/2022 15:37:09 Umbilical hernia [id number] K42.9 Low back pain 924699634 M54.50 Postoperative pain 83498 9007 G89.18 [id number] MARIANA DAVILA APRN INTERNAL MEDICINE [address] [address] 03/13/2022 13:39:43 03/13/2022 16:28:14 Essential hypertension 65991586 I10 Patients blood pressure is well controlled on present medical therapy. He is tolerating , without difficulty the current medication s. I have made no changes to our current regimen. History of repair of umbilical hernia 697855098 Z98.890 cleared to return to work [id number] MARIANA DAVILA APRN INTERNAL MEDICINE [address] [address] 05/01/2022 08:20:15 05/01/2022 14:32:56 Testosterone level below reference range 603897070 R79.89 Patient evaluated for testicular problems. Patient educated on treatment and goals of therapy. Discussed follow up and orders indicated below. Central obesity 57236225 1 E66.8 Right lowe r quadrant pain 429375487 R10.31 r/o appendicit is Essential hypertension 60883567 I10 Patients blood pressure is well controlled on present medical therapy. He is tolerating , without difficulty the current medication s. I have made no changes to our current regimen. Screening for malignant neoplasm of colon 155420083 Z12.11 Due [id number] ASIYA VEGA MD SURGERY SCHEDULE [address] [place] [address] 06/30/2022 10:47:16 06/30/2022 10:49:20 [id number] [place] [address] [place] [address] 09/18/2022 10:11:08 09/19/2022 04:46:15 Essential hypertension 94518409 I10 Patients blood pressure is well controlled on present medical therapy. He is tolerating , without difficulty the current medication s. I have made no changes to our current regimen. Testostero ne level below reference range 695510747 R79.89 Patient evaluated for testicular problems. Patient educated on treatment and goals of therapy. Discussed follow up and orders indicated below. Central obesity 32899251 1 E66.8 History of iron deficiency 041892575 Z86.39 Body mass index 30+ - obesity 156772387 Z68.30 Benefits vs risks and side effects discussed with patient. Thoracic radiculopathy 86614429 M54.14 Primary er ectile dysfunction 511606300 N52.9 [id number] MARIANA DAVILA APRN INTERNAL MEDICINE [address] [place] [address] 06/15/2023 07:53:29 06/21/2023 15:38:43 Adult health examination 789119100 Z00.00 Colon cancer screenin06/30/22>> follow up 3 yearsPSA:p rostate specific Ag, 0.749 10/21/21Smo ker: non - 1 cigars a yearAAA: n/aLung cancer screen: n/a, non smokerdecl ined vaccines at the clinic Testostero ne level below reference range 742938127 R79.89 Patient evaluated for testicular problems.P atient educated on treatment and goals of therapy. Discussed follow up and orders indicated below. His labwork thus far has not been indicative of low T, and therefore we cannot Rx. Essential hypertension 63127189 I10 Patients blood pressure is well controlled on present medical therapy. He is tolerating , without difficulty the current medication s. I have made no changes to our current regimen. History of polyp of colon 362704729 Z86.010 06/30/22, colonoscop y - follow up 3 years Skin lesion 84666528 L98 .9 multiple brown and johnson lesion across backStates told in past had [place] Multiple skin tags 94507 7009 L91.8 neck and bilateral arm pitsSome destroyed today with both cryo and snipping todayrefer to derm Right uppe r quadrant pain 656768349 R10.11 occurs after he eats and lasts for about an hourWorrie d it may be gallbladde rNo referred shoulder painNo TTPAdd pepcid in addition to omeprazole . Discussed possible RUQ US if symptoms persist or worsen. CT A/P 2021 showed no gallstones . Pain of le ft shoulder joint 4984855875 3453441 M25.512 Repetitive motions at workLikely multifacto rial - he carrys heavy pieces of metal in his L arm, agains his chest many days a week at work.Discu ssed ergonomics .He denies any numbness, tingling or loss of sensation. Follow up with no improvemen t Varicose v eins of lower extremity 17322200 I83.91 R poplitealN ontenderEn couraged compressio ns Gastroesop hageal reflux disease without esophagitis 550652367 K21.9 Omeprazole 40mg QD.Add pepcid and follow up with no improvemen t.Discusse d possible EGDWeight loss would helpHOB >90 at least 2 hours postprandi al. 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 Benign reassuranc e Raised go orrheic keratosis 1046296675 51007 L82.1 Benign reassuranc e Hemangioma 916354399 D18 .00 Benign reassuranc e Multiple b enign melanocytic nevi 113554495 D22.9 Benign reassuranc eIf any lesions change, or if any other new or symptomati c lesions occur, patient understand s to return to the clinic for further evaluation Discussed sun precaution s; SPF 30+ Hemosideri n pigmentation of skin due to venous insufficiency 131297549 I87.2 Educated patient about diagnosisB enign - reassuranc erecommend ed compressio n socks when working to help with edema Multiple skin tags 38788 7009 L91.8 Benign reassuranc e Inflamed s eborrheic keratosis 735613755 L82.0 Education about diagnosist hen treated with LN x 2 per patient request - mid backpatien t tolerated wellwound care instructio n provided Tenderness of skin 09785 9000 R20.8 isks Psoriasis 8260263 L40.9 Chronicint ermittent flares on left elbow onlyMild todayExace rbation - no prior treatmentB SA < 10% itch 4/10Will try topical steroid for initial treatment - risks/alt/ benefits of steroid use on skin reviewed. Patient verbalized understand ing.RX - Triamcinol one 0.1% cream - apply to affected areas of rash on elbow BID x 2 weeks; then decrease use to 2-3 times per week as needed for flares/itc jacqueline.Follo w up as needed if worsening or spreading rash. Patient ad vised about exposure to the sun 396880658 Z71.89 Patient was counseled on the risks of chronic sun exposure. Sun protective clothing and daily UV protection with over the counter broad-spec trum SPF 30+ on exposed areas recommende d, as well as, regular self-skin exams. Patient was encouraged to return to the clinic with any new, changing, or symptomati c lesions. [id number] MARIANA DAVILA APRN INTERNAL MEDICINE [address] [place] [address] 09/26/2023 07:55:43 09/27/2023 04:31:45 Cough 44219560 R05.9 likely post viral in nature + [place] Body mass index 30+ - obesity 115257415 Z68.30 Benefits vs risks and side effects discussed with patient. Vitamin D deficiency 347 07429 E55.9 21 06/15/23, no med Essential hypertension 61300126 I10 Patients blood pressure is well controlled on present medical therapy. He is tolerating , without difficulty the current medication s. I have made no changes to our current regimen. Testostero ne level below reference range 111103864 R79.89 Patient evaluated for testicular problems.P atient educated on treatment and goals of therapy. Discussed follow up and orders indicated below. His labwork thus far has not been indicative of low T, and therefore we cannot Rx. History of polyp of colon 618488260 Z86.010 06/30/22, colonoscop y - follow up 3 years Gastroesop hageal reflux disease without esophagitis 119186642 K21.9 Omeprazole 40mg QD.>> not currently takingAdd pepcid and follow up with no improvemen t.Discusse d possible EGDWeight loss would helpHOB >90 at least 2 hours postprandi al. Seasonal a llergic rhinitis 992359023 J30.2 Start and follow up with no improvemen t [id number] MARIANA DAVILA APRN INTERNAL MEDICINE [address] [place] [address] 04/18/2024 09:54:18 04/24/2024 11:01:20 Body mass index 30+ - obesity 784185075 Z68.30 Benefits vs risks and side effects discussed with patient.32 .8 04/18/24 Vitamin D deficiency 347 62821 E55.9 21 06/15/23, no med Essential hypertension 46097389 I10 Patients blood pressure is well controlled on present medical therapy. He is tolerating , without difficulty the current medication s. I have made no changes to our current regimen. Testostero ne level below reference range 416336760 R79.89 Patient evaluated for testicular problems.P atient educated on treatment and goals of therapy. Discussed follow up and orders indicated below. His labwork thus far has not been indicative of low T, and therefore we cannot Rx. History of polyp of colon 168126173 Z86.0100 06/30/22, colonoscop y - follow up 3 years Gastroesop hageal reflux disease without esophagitis 560164502 K21.9 Omeprazole 40mg QD.>> not currently takingAdd pepcid and follow up with no improvemen tCaly gupta possible EGDWeight loss would helpHOB >90 at least 2 hours postprandi al. 04/18/24>> stable Adult heal th examination 986716162 Z00.00 Colon cancer screenin06/30/22>> follow up 3 yearsPSA:p rostate specific Ag, 0.749 10/21/21Smo ker: non - 1 cigars a yearAAA: n/aLung cancer screen: n/a, non smokerdecl ined vaccines at the clinic Prediabetes 238468982 R7 3.03 5.8>> 09/26/23 Medial epi condylitis of right elbow joint 1908073511 54176 M77.01 Follow up with no improvemen t Obstructiv e sleep apnea syndrome 70771255 G47.33 Unable to obtain records from [facility] - however this was >5 years ago.Discus sed this is likely the culprit of fatigue - as testo has always been WNL Screening for malignant neoplasm of prostate 696155831 Z12.5 [id number] BRENT CROWLEY-POP ESCOBAR MD PULMONARY [address] [facility], [address] [place] [address] 04/23/2024 08:42:53 04/23/2024 13:35:28 Excessive day and night-time sleepiness 267951265 G47.19 Patient's complaints and clinical presentati on are very suggestive of sleep disorder breathing. Discussed at length the need to proceed with polysomnog dacia as well as nPAP therapy if so indicated. We also discussed alternativ e treatment options such as oral appliances and implantabl e devices.Di scussed also the importance of driving precaution s and sleep hygiene techniques until, if present, ADELINA is under adequate control.Di scussed polysomnog dacia, testing equipment and testing procedure. Patient is agreeable to proceed with polysomnog dacia and nPAP therapy if so indicated. 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 DERMATOLO [facility] [address] [place] [address] 05/16/2024 08:39:10 05/16/2024 10:26:18 Multiple skin tags 867256807 L91.8 Benign appearance ; reassuranc e and education providedpa inful and bothersome to patientEdu cation about diagnosisr emoved using gradle scissors and cautery; 15 inflamed skin tagspatien t tolerated wellSee procedure notewound care instructio n providedPo ssible out-of-poc ket costs were reviewed with patient; financial waiver signedfoll ow up as needed Tenderness of skin 06030 9000 R20.8 Irritated painful skin tags [id number] MARIANA DAVILA APRN INTERNAL MEDICINE [address] [place] [address] 10/13/2024 08:59:04 10/17/2024 15:10:10 Body mass index 30+ - obesity 705182274 Z68.30 Benefits vs risks and side effects discussed with patient.32 .8 04/18/257/2 04/19>> 31.2We will attempt again injectable pending labs. Vitamin D deficiency 347 67223 E55.9 21 06/15/23, no med Essential hypertension 44511184 I10 Patients blood pressure is well controlled on present medical therapy. He is tolerating , without difficulty the current medication s. I have made no changes to our current regimen. Testostero ne level below reference range 300744385 R79.89 Patient evaluated for testicular problems.P atient educated on treatment and goals of therapy. Discussed follow up and orders indicated below. His labwork thus far has not been indicative of low T, and therefore we cannot Rx. Gastroesop hageal reflux disease without esophagitis 481020008 K21.9 Omeprazole 40mg QD.>> not currently takingAdd pepcid and follow up with no improvemen t.Discusse d possible EGDWeight loss would helpHOB >90 at least 2 hours postprandi al. 04/18/24, 10/13/24>> stable Prediabetes 304047994 R7 3.03 5.8>> 09/26/23 Primary insomnia 6284186 F51.01 Trial melatonin, has done trazodone, too sedating.R elated to daughter living on own as well Hyperlipidemia 36062431 E78.5 Recommende d statin 03/2024. He declinesWi ll attempt injectable for weight, CVD if prediabeti c today - discussed Health Concerns Section Related Observation LastModified by Organization Detai ls LastModified Time None Recorded Concern Status LastModified by Organization Details LastModified Time None Recorded Advance Directives Directive None Recorded Payers Insurance Date Sequence Insurance Name Policy Number Policy Bahena Covered Member ID Bahena Member ID Guarantor Name 10/17/2024 1 BCBS-[place]: [place] [id number] Bob Williamson [id number] Bob Williamson Notes Date Note Type Note Provider Name and Address Organization Details Recorded Time 09/26/2023 text/html Here for cough - he states he was sick about two months ago and has had a lingering cough that is worse at bedtime.He has been taking sudafed and mucinex. He states he has significant post nasal drip and congestion - states that it is all clear. Does have some runny nose, allergy symptoms. Itchy ears. Vit D def, not taking supplement. Hx Low t - non since here.He states that he is just so fatigued MARIANA DAVILA, [employer] PUSHER [address] [place], [address], [facility] 09/26/2023 12:18:49 04/18/2024 text/html Here for annual and fasting labs He has a past medical history of hypertension, well controlled on losartan 25mg QD, as well as low testosterone. He had been previously getting testosterone from [facility]. His T was so high at some point he became polycythemic and had to do therapeutic phlebotomy. He has now been working out. Lost about 8 lbs. Feels better over all. States that he was showing off at the gym a few weeks ago and tried to bicep curl more than he should have. States he has had some pain in his R medial elbow intermittently since. States that this pain occurs mostly with the curl activity, and notices it most with activity. Hasn't taken any medication for relief. He again complains of fatigue. He underwent an ADELINA evaluation at one point in time, was dx was apnea and was given a CPAP - however he did not tolerate this.He reports significant daytime fatigue. States never truly feels refreshed . Has skin tags that he would like removed. Has had some removed in the past, they continue to grow in areas of friction. No other concerns. MARIANA DAVILA, [employer] PUSHER [address] [place], [address], [facility] 04/21/2024 16:31:04 04/23/2024 text/html ROS as noted in the HPI Patient comes in for evaluation of loud snoring and excessive daytime sleepiness. Patient's family admits to episodes of witnessed nocturnal apnea. Patient denies waking up choking/gasping for air during the night. Patient also complains of frequent nocturnal arousals and admits to often waking up poorly rested. 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 Cognition, memory and concentration are diminished. Patient denies irritability and mood changes. Above mentioned sleep disturbances have worsened over the past few months. There are no symptoms of restless leg syndrome. Patient denies symptoms suggestive of REM behavior disorder. There are no complaints of cataplexy, sleep related paralysis and/or sleep related hallucinations. Sleep schedule is consistent and appropriate. There are no complaints of insomnia. [place] sleepiness score equals 2 BRENT LÓPEZ MD [address] [place], [address], [facility] 04/23/2024 09:17:04 05/16/2024 text/html ROS as noted in the HPI Established patient Patient presents to the clinic today for irritated skin tags Patient states bilateral axilla and one on the right inner thigh - getting red and irritated with clothing rubbing - painful EVER GREENE, [employer] P[employer]HER [address] [place], [address], [facility] 05/16/2024 10:41:08 10/13/2024 text/html Recheck He has a past medical history of hypertension, well controlled on losartan 25mg QD, as well as low testosterone. He had been previously getting testosterone from [facility]. His T was so high at some point he became polycythemic and had to do therapeutic phlebotomy. Doing well in terms of joint aches and pains. Seems like it is worse in the winter, per patient. Exercising, working out. Doing well with weight. Would like to be on testo again, but knows we cannot Rx/ Did not go through with ADELINA roldan, states allie was told it was minimal . Sleeps overall ok, but still deals with some restless sleep. Daughter lives on her own, moved out recently. Reports stress related to that. She does have life 360, still stresses him out.Has tone trazodone, this made him too sleepy. No other concerns. MARIANA DAVILA, [employer] PUSHER [address] [place], [address], [facility] 10/13/2024 10:50:53
--- OUTSIDE RECORDS SUMMARY | 2024-10-18 09:11 | XMS_ITS | Clinical Summary ---
Author Organization [facility] Address [address] [place] [phone] Phone [email or web address] Care Team Providers Care Human Resources Administrator Name Role Phone Unavailable Primary Care Provider Unavailabl e Active Problems Problem Noted Date Diagnosed Date Gastro-esophageal reflux disease without esophag itis 06/15/2020 Overview (12/08/2020): Encounter for issue of repeat prescription 06/15 Overview (12/08/2020): Encounter for screening, unspecified 02/05/2019 Overview (12/08/2020): Persons encountering health services in other specified circumstances 02/05/2019 Overview (12/08/2020): Abnormal level of blood mineral 02/22/2018 Overview (12/08/2020): Encounter for general adult medical examination without abnormal findings 03/15/2015 Overview (12/08/2020): Other and unspecified hyperlipidemia 08/11/2013 Overview (12/08/2020): Adjustment reaction 08/11/2013 Overview (12/08/2020): Allergic rhinitis 08/11/2013 Overview (12/08/2020): Social History Tobacco Use Types Packs/Day Years Used Date Smoking Tobacco: Never Assessed Intimate Partner Violence Answer Date R ecorded Insults You Not on file 12/12/2020 Threatens You Not on file 12/12/2020 Screams at You Not on file 12/12/2020 Physically Hurt Not on file 12/12/2020 Intimate Partner Violence Score Not on file 12/12/2020 Stress Answer Date Recorded Stress in your Life Not on file 01/30/2024 Dealing with Stress 3 01/30/2024 Sex and Gender Information Value Date Recorded Sex Assigned at Not on file Legal Sex Male 12:55 PM CDT Gender Identity Not on file Sexual Orientation Not on file Last Filed Vital Signs Vital Sign Reading Time Taken Comments Blood Pressure 120/82 12/29/2021 6:55 PM EDT Pulse 106 12/29/2021 6:55 PM EDT Temperature - - Respiratory Rate - - Oxygen Saturation - - Inhaled Oxygen Concentration - - Weight 99.8 kg (220 lb) 12/29/2021 6:55 PM EDT Height 182.9 cm (6') 12/29/2021 6:55 PM EDT Body Mass Index 29.84 12/29/2021 6:55 PM EDT Plan of Treatment Health Maintenance Due Date Last Done Comments Dental Cleaning/Exam 1974 HIV Screening 1974 Hepatitis C Screening 1974 Annual Preventive Exam 1992 Hep B Infection Screening - Triple Screen 1992 Hepatitis B Immunization (1 of 3 - 19+ 3-dose series) 1993 Colorectal Cancer Screening 2004 Polio Immunization (2 of 3 - Adult catch-up series) 04/23/2015 03/26/2015 Covid-19 Immunization (1 - 2 024-25 season) 2023 Influenza Immunization (#1) 2024 Tetanus Diphtheria and Pertu ssis Immunization (2 - Tdap) 03/26/2025 03/26/2015 HIB Immunization Aged Out No longer e ligible based on patient's age to complete this topic HPV Immunization Aged Out No longer e ligible based on patient's age to complete this topic Hepatitis A Immunization Aged Out No longer eligible based on patient's age to complete this topic Pneumococcal: Ped (0 to 5 Yr s) and At-Risk Member (6 to 64 Yrs) Aged Out No longer e ligible based on patient's age to complete this topic
--- NOTE | 2024-10-18 09:14 | CT_ITS ---
PROCEDURE INFORMATION: Exam: CTA Chest With Contrast Exam date and time: 10/18/2024 9:28 AM Age: 48 years old Clinical indication: Pain; Right-sided; Additional info: Right sudden severe pleuritic chest pain TECHNIQUE: Imaging protocol: Computed tomographic angiography of the chest with contrast. Exam focused on the arteries. 3D rendering (Not supervised by radiologist): MIP and/or 3D reconstructed images were created by the technologist. Radiation optimization: All CT scans at this facility use at least one of these dose optimization techniques: automated exposure control; mA and/or kV adjustment per patient size (includes targeted exams where dose is matched to clinical indication); or iterative reconstruction. Contrast material: ISOVUE; Contrast volume: 85 ml; Contrast route: INTRAVENOUS (IV); COMPARISON: CT CHEST W CON 03/16/2021 1:13 PM FINDINGS: Pulmonary arteries: Negative for acute pulmonary embolism. Aorta: Unremarkable. No aortic aneurysm. No aortic dissection. Lungs: Unremarkable. No consolidation. No masses. Pleural spaces: Unremarkable. No pneumothorax. No pleural effusion. Heart: Unremarkable. No cardiomegaly. No pericardial effusion. Lymph nodes: Unremarkable. No enlarged lymph nodes. Bones/joints: Unremarkable. No acute fracture. Soft tissues: Unremarkable. IMPRESSION: Negative for acute pulmonary embolism.
[2024-10-18] MEDS: KETOROLAC 30MG/ML VIAL 15 MG IV (09:24)
[2024-10-18] MEDS: ONDANSETRON 4MG/2ML VIAL 4 MG IV (09:24)
[2024-10-18] MEDS: MORPHINE 4MG/ML SYRINGE 4 MG IV (09:25)
[2024-10-18] MEDS: LACTATED RINGERS 1000ML 1,000 ML 999 ML IV (09:25)
--- NOTE | 2024-10-18 09:28 | ED_ITS ---
Discharge Plan Disposition Patient Disposition: Home, Self-Care Prescriptions Prescriptions: No Action omeprazole 20 mg capsule,delayed release(DR/EC) 40 mg PO DAILY losartan 25 mg tablet 25 mg PO DAILY aspirin [Adult Low Dose Aspirin] 81 mg tablet,delayed release (DR/EC) 81 mg PO DAILY Referrals Follow up/Referrals: Alison Ambrose MD [Primary Care Provider, Medical] - See instructions Addy Childress MD [Staff Physician, General Surgery] - See instructions Activity Restrictions/Add. Instructions Additional Instructions/Restrictions: No acute cardiothoracic emergency to explain your pain today and your pain is almost certainly secondary to biliary colic from a gallstone that we discussed and is referred in nature. Please note that the radiology read does not comment on your gallbladder which is why I showed you the images and if you follow-up the primary care doctor make sure that you get the disc with images so that they can see them. Otherwise I would recommend an outpatient ultrasound and to follow-up with your surgeon through the [facility] or I have made a referral to our surgeon here Dr. Childress if you like to follow-up here. Clinical Impressions Clinical Impression: Chest pain, pleuritic, Biliary colic, Cholelithiasis Print Language Print Language: Nigerian Discharge ED Provider: Kareem Fraga [facility] General Chief Complaint: Chest Pain Stated Complaint: CP Time Seen by Provider: 10/18/24 09:09 Mode of Arrival: Ambulatory Source of Information: Patient Description of Symptoms (Recalled from ER Triage Doc. by RN): Patient presents to ED from home with c/o right sided chest pain. Patient states he woke up with dull chest pain as well as feeling hot and sweaty . Patient denies any cardiac hx. Denies SOA. History of Present Illness HPI narrative: Patient is a previously healthy 48-year-old who denies any significant past medical history presents today with sudden and severe right sided chest discomfort. Patient points to the mid axillary line just lateral to his right breast and states that this began upon waking and suddenly worsened and has been severe since that time. States it significantly worse with inspiration. No improvement or worsening with any type of exertion. Denies any fevers chills any other symptoms leading up to today felt fine going to bed last night. No history of any coronary disease no lower extremity swelling history of DVT PE hemoptysis etc. Related Data Home Medications ?Medication ?Instructions ?Recorded ?Confirmed aspirin 81 mg tablet,delayed 81 mg PO DAILY 02/23/21 1 05/17/20 release (Adult Low Dose Aspirin) losartan 25 mg tablet 25 mg PO DAILY 02/23/2102/24 omeprazole 20 mg capsule,delayed 40 mg PO DAILY 03/16/21 release Allergies Allergy/AdvReac Type Severity Reaction Status Date / Time No Known Allergies Allergy Verified 10/18/24 09:19 [facility] Disclaimer: The information contained in this section may have been updated after the patient was seen, as this information can be updated by other users. Medical History (Updated 10/18/24 @ 12:05 by Kareem Fraga MD) Family history of heart disease Abnormal electrocardiography Dyspnea Chest pain Social History (Updated 02/08/22 @ 14:10 by Ml Hernández RN) Smoking Status: Former smoker alcohol intake: never current occupational status: employed Travel in the last 8 weeks?: Inside the [place] Have you lived/traveled outside US in past 30 days?: No Contact w/someone who lives/traveled outside US past 30 days?: No Exposure to someone with infectious disease in past 14 days?: No Do you have a fever (greater than 100.4 F or 38 C)?: No Have you tested positive for COVID-19?: No Exposed to someone with COVID-19 in past 14 days?: No Do you have a sore throat?: No Do you have a cough?: No Do you have any weakness?: No Do you have any diarrhea?: No Are you experiencing any unusual bleeding?: No Do you have any muscle aches/pain?: No Do you have any abdominal pain?: No Are you experiencing loss of taste or smell?: No Other Medical History Have you received the Pneumonia Vaccine: No ROS Obtained: Yes All systems reviewed & no additional complaints except as documented Physical Exam General General appearance: in distress (Appears to be in severe pain grasping the right side of his chest and moaning in pain) Chest Chest inspection: Present symmetric chest wall rise; Absent tenderness Respiratory Respiratory exam: Present normal lung sounds bilaterally and respiratory distress Cardiovascular Cardiovascular exam: Present regular rate and normal rhythm Neurological Exam Neurological exam: Present alert and oriented X3 HEART Score HEART Score HEART Score assessment performed?: Yes History (anamnesis): Slightly suspicious ECG: Normal Age: 45-65 years Risk factors: No known risk factors Troponin: </= normal limit HEART Score: 1 Procedures Miscellaneous Procedure Procedure Performed: Limited cardiac ultrasound Indication: Dyspnea Identified structures: The heart was visualized in the parasternal long axis, parastenal short axis, apical four chamber and subxyphiod views. The IVC was visualized in the short axis and long axis at its entry into the right atrium. Findings: Normal LVEF no acute abnormality Impression: Unremarkable limited ultrasound of the heart Images were saved to permanent archive The study was technically adequate CPT: 55819-79 This study was performed by ut, and I personally interpreted all images/videos. Based on my clinical judgement, these images were adequate and did not necessitate further imaging. Limited lung ultrasound A focused ultrasound exam of the pleural spaces was performed to evaluate for pneumothorax, pulmonary edema, pleural effusion and/or consolidation. The ultrasound was performed with the following indications, as noted in the H&P: Dyspnea Identified structures: Right and left thoracic cavities were examined. Findings: Lung sliding present throughout no B-lines pleural effusions or consolidations noted Impression: Unremarkable bilateral bedside ultrasound of the lung Images were to permanent archive The study was technically adequate CPT 43769-11 This study was performed by ut, and I personally interpreted all images/videos. Based on my clinical judgement, these images were adequate and did not necessitate further imaging. Limited RUQ ultrasound Indication: Abdominal pain Identified structures: Gallbladder Findings: Gallbladder was difficult to visualize as it was high riding under the patient's thoracic cavity I was able to visualize it through his intercostal spaces however it was able to visualize the majority of the gallbladder but could not see the neck of the gallbladder nor the common bile duct. I could not readily identify stones however the superior aspect of the gallbladder has a normal anterior gallbladder wall no pericholecystic fluid he did not have any localized pain over this region as well. Impression: No evidence of cholecystitis Images were saved to permanent archive The study was technically adequate CPT 37232-43 This study was performed by ut, and I personally interpreted all images/videos. Based on my clinical judgement, these images were adequate and did not necessitate further imaging. Critical Care Critical Care Time Critical Care Time: Yes Attestation: On 10/18/24, the high probability of a clinically significant, sudden or life threatening deterioration of the following system(s) required my full and direct attention, intervention and personal management. The time I documented below is in addition to time spent performing reported procedures but includes the following listed in this critical care notation. Total Time Total Critical Care Time: 35 Medical Decision Making Saad Inquiry Pt receiving controlled substance: No Vital Signs Vital Signs: 10/18/24 09:10 10/18/24 09:14 10/18/24 09:15 Temperature 97.8 F Temperature Source Oral Pulse Rate 79 72 Pulse Rate [Left] 75 Respiratory Rate 22 22 24 Blood Pressure Blood Pressure [Right Arm] 178/97 H Blood Pressure Mean Blood Pressure Mean [Right Arm] 124 Blood Pressure Source [Right Arm] Automatic Cuff Blood Pressure Position [Right Arm] Sitting 02 Sat by Pulse Oximetry 99 94 L 98 Oxygen Delivery Method Room Air Room Air Room Air 10/18/24 09:35 10/18/24 10:00 10/18/24 10:13 Temperature Temperature Source Pulse Rate 65 63 57 L Pulse Rate [Left] Respiratory Rate 18 19 15 Blood Pressure 150/76 H 121/67 Blood Pressure [Right Arm] Blood Pressure Mean Blood Pressure Mean [Right Arm] Blood Pressure Source [Right Arm] Blood Pressure Position [Right Arm] 02 Sat by Pulse Oximetry 98 99 96 Oxygen Delivery Method Room Air Room Air Room Air 10/18/24 10:31 10/18/24 11:01 10/18/24 11:30 Temperature Temperature Source Pulse Rate 60 63 57 L Pulse Rate [Left] Respiratory Rate 18 17 15 Blood Pressure 125/66 128/69 135/77 Blood Pressure [Right Arm] Blood Pressure Mean 87 96 Blood Pressure Mean [Right Arm] Blood Pressure Source [Right Arm] Blood Pressure Position [Right Arm] 02 Sat by Pulse Oximetry 96 97 98 Oxygen Delivery Method Room Air Room Air Lab Data Lab results reviewed: Yes I reviewed the patient's lab results. Labs: Lab Results 10/18/24 09:08: WBC 5.6, RBC 5.76, Hgb 18.3 H, Hct 51.8, MCV 89.9, MCH 31.8 H, MCHC 35.3, RDW 12.8, Plt Count 263, MPV 10.9 H, Neut % (Auto) 37.2, Lymph % (Auto) 45.1, [place] % (Auto) 14.5 H, Eos % (Auto) 2.5, Baso % (Auto) 0.5, Neut # (Auto) 2.1, Lymph # (Auto) 2.5, [place] # (Auto) 0.8, Eos # (Auto) 0.1, Baso # (Auto) 0.0, PT 10.7, INR 0.96, APTT 26.0, Sodium 142, Potassium 3.5, Chloride 105, Carbon Dioxide 26, Anion Gap 14.5, BUN 16, Creatinine 1.00, Estimated Creat Clear 129, Estimated GFR 79, Est GFR ( Amer) 96, Glucose 127 H, Calcium 10.0, Total Bilirubin 0.9, AST 46, ALT 52, Alkaline Phosphatase 126, Troponin I < 0.01, NT-Pro-B Natriuret Pep 54.4, Total Protein 8.1, Albumin 4.5, Globulin 3.6 H, Albumin/Globulin Ratio 1.3, Lipase 143, HCV Ab JOAQUIN w/Rflx PCR Qn Negative, HIV Ag/Ab Combo Qual Negative 10/18/24 09:08 10/18/24 09:08 Response Orders (Tests/Meds): ED MEDICATIONS Discontinued Medications Generic Name Dose Route Start Last Admin Trade Name Kodyq PRN Reason Stop Dose Admin Lactated Ringer's 1,000 mls @ 999 mls/hr 10/18/24 09:15 10/18/24 09:25 Lactated Ringer's 1000 Ml Bag IV 10/18/24 10:15 999 mls/hr .Q1H1M DEENA Administration Iopamidol 85 ml 10/18/24 09:36 10/18/24 09:37 Iopamidol-370 (76%);100ml Bottle IV 10/18/24 09:37 85 ml ONCE ONE Administration Ketorolac Tromethamine 15 mg 10/18/24 09:19 10/18/24 09:24 Ketorolac 30mg/Ml Vial IV 10/18/24 09:20 15 mg ONCE ONE Administration Morphine Sulfate 4 mg 10/18/24 09:13 10/18/24 09:25 Morphine 4mg/Ml Syringe IV 10/18/24 09:14 4 mg ONCE ONE Administration Ondansetron HCl 4 mg 10/18/24 09:13 10/18/24 09:24 Ondansetron 4mg/2ml Vial IV 10/18/24 09:14 4 mg ONCE ONE Administration Sodium Chloride 10 ml 10/18/24 09:36 10/18/24 09:37 Sodium Chloride 0.9% 10ml Syr (Rad Only) IV 10/18/24 09:37 10 ml ONCE ONE Administration Sodium Chloride 50 ml 10/18/24 09:36 10/18/24 09:36 0.9 % Sodium Chloride 50 Ml Vial IV 10/18/24 09:37 50 ml ONCE ONE Administration ORDERS Category Date Time Status CT angio chest PE protocol Stat Cat Scan 10/18/24 09:14 Completed POCUS Point of Care (ER Only) Stat Exams 10/18/24 09:14 Completed POCUS Point of Care (ER Only) Stat Exams 10/18/24 09:37 Completed BNP [NT Pro Brain Natriuretic Pep.] Stat Lab 10/18/24 09:08 Completed CBC w/Auto Diff [Complete Blood Count Auto Diff] Stat Lab 10/18/24 09:08 Completed CMP [Comprehensive Metabolic Panel] Stat Lab 10/18/24 09:08 Completed HIV Combo Stat Lab 10/18/24 09:08 Completed Hepatitis C Ab Qual. W/ RFX Stat Lab 10/18/24 09:08 Completed Lipase Stat Lab 10/18/24 09:08 Completed PT/PTT Stat Lab 10/18/24 09:08 Completed Trop I [Troponin I] Stat Lab 10/18/24 09:08 Completed ECG Data Tracing #1: Attestation: I reviewed this ECG and interpreted as documented below: ECG Narrative: Ventricular rate of 76 normal sinus rhythm incomplete right bundle branch block no significant conduction abnormalities noted however indeterminate axis no acute ischemic changes noted specifically MDM Narrative Medical Decision Narrative: Patient is a 48-year-old previously healthy male presented today with severe sudden right-sided pleuritic chest pain. EKG is unremarkable specifically from an ischemic standpoint no significant sinus tachycardia or evidence of any severe right heart strain vital signs are normal including normal heart rates and oxygen saturations. However leading my differential would be a pulmonary embolism given the severe and sudden pain that this patient is in. Bedside ultrasound did not demonstrate any significant right heart strain on initial evaluation no obvious pneumothorax noted on bedside ultrasound of the lungs as well but that remains in the differential as well. Will get a emergent CT scan of the patient's chest/CT PE study. Labs are pending. Morphine Zofran IV fluids have been administered on reassessment patient has significantly improved after the morphine. This would be a very atypical presentation of acute coronary syndrome but that remains in the differential as well. Intra-abdominal pathology also could be the cause but he seems to localize this hide and thoracic cavity has no tenderness on exam. CT scan was performed which I personally interpreted which shows no evidence of a local consolidation lung parenchymal abnormality or pneumothorax. More specifically no evidence of a pulmonary embolism from a central or segmental aspect. However patient does have what appears to be a large stone in the neck of his gallbladder pain certainly could be referred but he had no localized pain to suggest that he has cholecystitis we will do a bedside ultrasound of his gallbladder to look at this further. Reassessment 1206 patient very comfortable and has been so for several hours after the morphine. Serial abdominal exams are benign respiratory exam is benign CT read by radiology as well is unremarkable they did not comment on the gallbladder but I showed the patient specifically the images showing the stone in the neck of the gallbladder. He is aware that I was unable to visualize the stone on ultrasound and he spoke with his primary care doctor at [facility] we will follow-up on this. I also given him a referral to Dr. Childress or general surgeon if he would like to be further evaluated for that. Have given him lifestyle modifications regarding his diet and return precautions. At this point I do not suspect ACS serial troponins were unnecessary at this moment. Other emergencies from cardiothoracic standpoint have been ruled out patient discharged in stable condition
[2024-10-18 09:30] LABS: Hematocrit 51.8 % (42.0-52.0); Immature Granulocytes % 0.2 %; Mean Corpuscular HGB Conc 35.3 g/dL (31.8-35.4); Mean Corpuscular Hemoglobin 31.8 pg (27.0-31.2); Mean Corpuscular Volume 89.9 fl (80-94); Nucleated Red Blood Cells % 0 %; Platelet Count 263 K/mm3 (142-424); Red Blood Count 5.76 M/mm3 (4.60-6.20); Red Cell Distribution Width-SD 42.2 fL; White Blood Count 5.6 K/mm3 (4.8-10.8)
[2024-10-18 09:32] LABS: Lipase 143 U/L (23-300)
[2024-10-18 09:33] LABS: Alanine Aminotransferase 52 U/L (12-78); Albumin Level 4.5 g/dl (3.5-5.0); Albumin/Globulin Ratio 1.3 (1.1-1.8); Alkaline Phosphatase 126 U/L (38-126); Anion Gap 14.5 mEq/L (5-15); Aspartate Amino Transferase 46 U/L (17-59); Bilirubin,Total 0.9 mg/dl (0.2-1.3); Blood Urea Nitrogen 16 mg/dl (9-20); Calcium 10.0 mg/dl (8.4-10.2); Carbon Dioxide 26 mmol/L (22.0-30.0); Chloride 105 mmol/L (98-107); Creatinine Clearance Estimated 129 mL/min (50-200); Creatinine,Serum 1.00 mg/dl (0.66-1.25); Estimated Glomerular Filt Rate 79 ml/min (>60); GFR (African American) 96 ML/MIN (>60); Globulin 3.6 g/dL (1.3-3.2); Glucose 127 mg/dl (74-100); Potassium 3.5 mmoL/L (3.5-5.1); Sodium 142 mmol/L (136-145); Total Protein,Serum 8.1 g/dl (6.3-8.2)
[2024-10-18] MEDS: 0.9 % SODIUM CHLORIDE 50 ML VIAL IV (09:36)
[2024-10-18] MEDS: IOPAMIDOL-370 (76%);100ML BOTTLE 85 ML IV (09:37)
[2024-10-18] MEDS: SODIUM CHLORIDE 0.9% 10ML SYR (RAD ONLY) 10 ML IV (09:37)
[2024-10-18 09:41] LABS: Hemoglobin 18.3 g/dL (14.1-18.0)
[2024-10-18 09:45] LABS: NT Pro Brain Natriuretic Pep. 54.4 pg/mL (0-125)
[2024-10-18 09:48] LABS: Troponin I < 0.01 ng/ml (0.00-0.034)
[2024-10-18 09:49] LABS: Activated Partial Thrombo Time 26.0 seconds (22.8-30.6); INR 0.96 (0.9-1.1); Prothrombin Time 10.7 seconds (10.1-12.5)
[2024-10-18 10:42] LABS: Hepatitis C Ab Qual. W/ RFX NEGATIVE (Negative)
== END 2024-10-18 12:21 | disposition home or self-care (01) ==
PROVIDERS: Emergency Provider Student in an Organized Health Care Education/Training Program; PCP Family Medicine
DX: R07.81 Pleurodynia (principal); K80.50 Calculus of bile duct without cholangitis or cholecystitis without obstruction; Z87.891 Personal history of nicotine dependence
CPT/HCPCS: 71275; 80053; 83690; 83880; 84484; 85025; 85610; 85730; 86803; 87389; 93005; 96361; 96374; 96375; 99285; J1885; J2270; J2405; J7120; Q9967

== ENCOUNTER 2025-02-10 15:29 | Outpatient (CLI) | payer BC, SELFPAY ==
--- NOTE | 2025-02-10 15:33 | US_ITS ---
FINAL REPORT CLINICAL HISTORY: dysuria FINDINGS: ULTRASOUND BLADDER WITH POST VOID RESIDUAL Bladder volumes were estimated based on 3 dimensional measurements, pre- and postvoid. There is appropriate distention of the bladder with prevoid measurement of 297 mL. No filling defects seen. Bilateral ureteral jets are visualized. Postvoid residual measures 25 mL. IMPRESSION: Small postvoid residual. Otherwise, no acute abnormality.. Reviewed, Interpreted and Dictated by Brenda Manzo MD Transcribed by Radha Anderson Authenticated and . [facility]
--- NOTE | 2025-02-10 15:33 | US_ITS ---
FINAL REPORT TECHNIQUE: Sonographic images of the kidneys and retroperitoneum were obtained in the longitudinal and transverse planes. CLINICAL HISTORY: LRFT FLANK PAIN FINDINGS: The right kidney measures 11.7 cm in cejf-zh-ayey length. No hydronephrosis, mass, or stone. Cortical echogenicity and thickness are normal. The left kidney measures 13.9 cm in rpfa-[id number]-[id number] length. Mild left hydronephrosis. No mass or stone. Cortical echogenicity and thickness are normal. Limited evaluation of the spleen and liver demonstrate no acute abnormality. IMPRESSION: Mild left hydronephrosis. No stones visualized but distal ureters not visualized. Reviewed, Interpreted and Dictated by Brenda Manzo MD Transcribed by Radha Anderson Authenticated and [facility]
== END 2025-02-10 23:59 | disposition home or self-care (01) ==
LOC: RAD 15:30
PROVIDERS: PCP Family Medicine; Visit Provider Nurse Practitioner
DX: N13.30 Unspecified hydronephrosis (principal)
CPT/HCPCS: 76770; 76857

== ENCOUNTER 2025-02-12 14:39 | Outpatient (CLI) | payer BC, SELFPAY ==
--- NOTE | 2025-02-12 14:47 | CT_ITS ---
FINAL REPORT TECHNIQUE: After the administration of oral and intravenous contrast, axial images were obtained through the abdomen and pelvis by computed tomography. The study was performed with techniques to keep radiation dose as low as reasonably achievable, (ALARA). Individual dose reduction techniques using automated exposure control or adjustment of mA and/or kV according to the patient's size were employed. CLINICAL HISTORY: KIDNEY STONE COMPARISON: None FINDINGS: Abdomen: The lung bases are clear. There is mild fatty infiltration of the liver. The gallbladder is absent. The spleen, pancreas and adrenals appear unremarkable. The right kidney is normal in appearance. There is mild to moderate hydronephrosis present in the left kidney, with an obstructing stone measuring 8 mm in size in the proximal left ureter. The aorta is normal in caliber. There is no free fluid or adenopathy. Pelvis: The appendix is normal. The urinary bladder is incompletely distended. There is no free fluid or adenopathy. There is moderate descending and sigmoid diverticulosis without acute inflammatory change. IMPRESSION: Mild to moderate left hydronephrosis with an obstructing stone, 8 mm in size, in the proximal left ureter. Reviewed, Interpreted and Dictated by Akash Schmitz MD Transcribed by Aury Laguna Authenticated and [facility]
[2025-02-12 15:24] LABS: Blood Urea Nitrogen 18 mg/dl (9-20); Creatinine,Serum 1.40 mg/dl (0.66-1.25); Estimated Glomerular Filt Rate 54 ml/min (>60); GFR (African American) 65 ML/MIN (>60)
[2025-02-12] MEDS: IOPAMIDOL-370 (76%);100ML BOTTLE 75 ML IV (15:55)
[2025-02-12] MEDS: SODIUM CHLORIDE 0.9% 10ML SYR (RAD ONLY) 10 ML IV (15:56)
--- OUTSIDE RECORDS SUMMARY | 2025-02-12 16:48 | XMS_ITS | Clinical Summary ---
Author Organization [facility] Address [address] [place] [address] Care Team Providers Care Industrial Spray Painter Name Role Phone Iglesia Sheriff MD Primary Care Provider [phone] Allergies No known active allergies Medications lisinopril [...] Date Last Done Comments [facility]-Depression Screening 1974 [facility]-Infant/Child/Adol SDOH Screenings 1974 [facility]- SDOH Screenings 1992 [facility]-Adult SDOH Screenings 1992 [facility]-DTaP,Tdap,and Td Vaccine s (1 - Tdap) 1993 [facility]-Hepatitis B Vaccines (1 of 3 - 19+ 3-dose series) 1993 CT Colonography 12/15/2019 Colonoscopy 12/15/2019 FIT-DNA 12/15/2019 FIT 12/15/2019 FOBT 12/15/2019 Sigmoidoscopy 12/15/2019 [facility]-Colorectal Cancer Screening 12/15/2019 [id number] Vaccine (1 - 20 25-26 season) 2024 [facility]-Influenza Vaccine (#1) 2024 [facility]-Pneumococcal Vaccine: 50 + Years (1 of 1 - PCV) 2024 [facility]-Zoster Vaccines (1 of 2) 2024 [...] patient's age to complete this topic [place] [address] [address] [place] [id number] Care Teams Industrial Spray Painter Relationship Specialty Start Date End Date Iglesia Sheriff MD [address] [place] [address] [facility] - General 08/06/20
--- OUTSIDE RECORDS SUMMARY | 2025-02-12 16:48 | XMS_ITS | Clinical Summary ---
Author Organization [facility] Address [address] [place] [id number] Phone [email or web address] Care Team Providers Care Deputy Probation Officer Name Role Phone Unavailable Primary Care Provider [...] Health Maintenance Due Date Last Done Comments CT Colonography 1974 Colonoscopy 1974 Colorectal Cancer Screening Combo 1974 DNA Cologuard 1974 Dental Cleaning/Exam 1974 FIT or FOBT Test 1974 HIV Screening 1974 Hepatitis C Screening 1974 Sigmoidoscopy 1974 Annual Preventive Exam 1992 Hep B Infection Screening - Triple Screen 1992 Hepatitis B Immunization (1 of 3 - 19+ 3-dose series) 1993 Polio Immunization (2 of 3 - Adult catch-up series) 04/23/2015 03/26/2015 Covid-19 Immunization (1 - 2 025-26 season) 2024 Influenza Immunization (#1) 2024 Pneumococcal: 50+ Years (1 o f 1 - PCV) 2024 Zoster Immunization (1 of 2) 2024 Tetanus Diphtheria and Pertu ssis Immunization [...]
--- OUTSIDE RECORDS SUMMARY | 2025-02-12 16:49 | XMS_ITS | Continuity of Care Document ---
Author Organization [facility], SURGERY SCHEDULE Address [address] [place] [address] Care Team Providers Care Miller Head Name Role Phone TIMOTHY KRISHNA JR General Surgeon MARIANA DAVILA Primary Care Provider Assessment Encounter Date Assessment Date Assessment LastModified by Organization Details LastModified Time 12/12/2024 12/12/2024 SURGERY DATE: 12/12/2024 PREOPERATIVE DIAGNOSIS: Cholecystitis. POSTOPERATIVE DIAGNOSIS: Cholecystitis. PROCEDURE: Laparoscopic cholecystectomy, TAP block. ESTIMATED BLOOD LOSS: INDICATIONS: Patient had a prior history of umbilical hernia with [address] mesh. He had cholecystitis. FINDINGS: Omental adhesions to the mesh in the mid abdomen. Enlarged intrahepatic gallbladder. Wider than normal cystic duct. OPERATIVE NOTE: Anesthesia induced, abdomen prepped and draped sterilely. Time-out done and antibiotics given. Veress needle placed, left upper quadrant, insufflated. The 5 mm trocar placed in right subcostal position. Two other 5 mm trocars placed in the subcostal position. LigaSure device was used to take down some of the omental adhesions to allow placement of a 5 mm trocar in the supraumbilical position. Now the graspers were used to elevate the gallbladder. The fatty attachments to the gallbladder and adjacent to liver were taken down with LigaSure device. Now careful dissection was done to free the cystic duct, cystic artery and neck of the gallbladder with combination of hook cautery and LigaSure. The critical view was obtained. Hem-o-shana clips were used to control the cystic duct, which was divided. Clips were used to control cystic artery, which was divided. Now with gallbladder was swept off the gallbladder fossa with a hook cautery. It was placed in a plastic and removed from the abdomen through a 12 mm trocar, which had been placed in the epigastrium position. The right upper quadrant was lavaged until the effluent was clear. A TAP block had been done. The 0 Vicryl suture was used to close the fascial defect, 3-0 Vicryl was used to close subcutaneous layer, 4-0 Monocryl was used to close the skin. Dermabond dressing applied. Case took twice as long as normal would be finding nature of the gallbladder and the adhesions from prior surgery. [email or web address] Not available 12/12/2024 16:10:29 Plan of Treatment Reminders Order Date Submit Date Provider Last Modified By Organization Details Last Modified Time Details Appointments None record ed. Lab None record ed. Referral None record ed. Procedures None record ed. Surgeries None record ed. Imaging None record ed. Medication Orders None record ed. Patient TargetsNo targets recorded. Patient InstructionsNo instructions recorded. Reason for Referral None Reported. Results Created Date Observation Date Name Description Value Unit Range Abnormal Flag Note LastModifiedBy Organization Detail LastModifiedTime 12/12/1912/11/2024 COMPL ETE BLOOD COUNT white blood cells 4.5 10*3/ uL 3.8-10 .8 normal Not Available [facility] [address] [place], [address], 12/11/2024 11:52:23 12/12/19 25 12/11/2024 COMPL ETE BLOOD COUNT red blood cells 5.16 10*6/ uL 4.20-5 .80 normal Not Available [facility] [address] [place], [address], 12/11/2024 11:52:23 12/12/1912/11/2024 COMPL ETE BLOOD COUNT hemoglobin 16.1 g/dL 14.0-1 8.0 normal Not Available [facility] [address] [place], [address], 12/11/2024 11:52:23 12/12/19 25 12/11/2024 COMPL ETE BLOOD COUNT hematocrit 46.5 % 40.0-5 2.0 normal Not Available [facility] [address] [place] [address], [address], 12/11/2024 11:52:23 12/12/1912/11/2024 COMPL ETE BLOOD COUNT MCV 90 fL 80-100 normal Not Available [facility] [address] [place] [address], [address], 12/11/2024 11:52:23 12/12/1912/11/2024 COMPL ETE BLOOD COUNT MCH 31 pg 26-35 normal Not Available [facility] [address] [place] [address], [address], 12/11/2024 11:52:23 12/12/1912/11/2024 COMPL ETE BLOOD COUNT MCHC 35 g/dL 32-36 normal Not Available [facility] [address] [place] [address], [address], 12/11/2024 11:52:23 12/12/1912/11/2024 COMPL ETE BLOOD COUNT RDW 13.0 % 11.0-1 5.0 normal Not Available [facility] [address] [place] [address], [address], 12/11/2024 11:52:23 12/12/1912/11/2024 COMPL ETE BLOOD COUNT MPV 8.8 fL 6.2-10 .5 normal Not Available [facility] [address] [place] [address], [address], 12/11/2024 11:52:23 12/12/1912/11/2024 COMPL ETE BLOOD COUNT platelet count 221 10*3/ uL 150-40 0 normal Not Available [facility] [address] [place] [address], [address], 12/11/2024 11:52:23 12/12/19 25 12/11/2024 COMPL ETE BLOOD COUNT neutrophil,a bsolute 1.9 10*3/ uL 1.6-8. 4 normal Not Available [facility] [address] [place] [address], [address], 12/11/2024 11:52:23 12/12/19 25 12/11/2024 COMPL ETE BLOOD COUNT lymphocyte,a bsolute 1.7 10*3/ uL 0.4-5. 1 normal Not Available [facility] [address] [place] [address], [address], 12/11/2024 11:52:23 12/12/1912/11/2024 COMPL ETE BLOOD COUNT monocyte,abs olute 0.8 10*3/ uL 0.0-1. 2 normal Not Available [facility] [address] [place] [address], [address], 12/11/2024 11:52:23 12/12/1912/11/2024 COMPL ETE BLOOD COUNT eosinophil,a bsolute 0.1 10*3/ uL 0.0-0. 8 normal Not Available [facility] [address] [place] [address], [address], 12/11/2024 11:52:23 12/12/1912/11/2024 COMPL ETE BLOOD COUNT basophil,abs olute 0.0 10*3/ uL 0.0-0. 3 normal Not Available [facility] [address] [place] [address], [address], 12/11/2024 11:52:23 12/12/19 25 12/11/2024 COMPL ETE BLOOD COUNT % neutrophils 42.4 % 42.0-7 8.0 normal Not Available [facility] [address] [place] [address], [address], 12/11/2024 11:52:23 12/12/19 25 12/11/2024 COMPL ETE BLOOD COUNT % lymphocytes 36.9 % 11.0-4 7.0 normal Not Available [facility] [address] [place] [address], [address], 12/11/2024 11:52:23 12/12/19 25 12/11/2024 COMPL ETE BLOOD COUNT % monocytes 18.0 % 0.0-11 .0 high Not Available [facility] [address] [place] [address], [address], 12/11/2024 11:52:23 12/12/19 25 12/11/2024 COMPL ETE BLOOD COUNT % eosinophils 2.2 % 0.0-7. 0 normal Not Available [facility] [address] [place] [address], [address], 12/11/2024 11:52:23 12/12/19 25 12/11/2024 COMPL ETE BLOOD COUNT % basophils 0.5 % 0.0-3. 0 normal Not Available [facility] [address] [place] [address], [address], 12/11/2024 11:52:23 12/12/19 25 12/11/2024 COMPL ETE BLOOD COUNT nucleated red cells 0.1 % 0.0-0. 9 normal Not Available [facility] [address] [place] [address], [address], 12/11/2024 11:52:23 12/12/19 25 12/11/2024 COMPL ETE BLOOD COUNT nucleated RBCs, absolute 0.01 10*3/ uL not estab. normal Not Available [facility] [address] [place] [address], [address], 12/11/2024 11:52:23 12/12/19 25 12/11/2024 UA MICRO SCOPI C, CULTU RE IF INDIC ATED mucus, urine Trace /lpf not establ ished normal Not Available [facility] [address] [place] [address], [address], 12/11/2024 11:55:09 12/12/19 25 12/11/2024 UA MICRO SCOPI C, CULTU RE IF INDIC ATED WBC, urine Rare 0-5/hp f normal Not Available [facility] [address] [place], [address], 12/11/2024 11:55:09 12/12/19 25 12/11/2024 UA MICRO SCOPI C, CULTU RE IF INDIC ATED RBC, urine 3-10 0-2/hp f abnormal Not Available [facility] [address] [place], [address], 12/11/2024 11:55:09 12/12/19 25 12/11/2024 UA MICRO SCOPI C, CULTU RE IF INDIC ATED squamous epi. cells 0-5 0-5/hp f normal Not Available [facility] [address] [place], [address], 12/11/2024 11:55:09 12/12/19 25 12/11/2024 UA MICRO SCOPI C, CULTU RE IF INDIC ATED reflex culture see below normal UA resul ts do not meet cultu re crite yazmin. Not Available [facility] [address] [place], [address], 12/11/2024 11:55:09 12/13/19 25 12/12/2024 SURGI LISA surgical SEE BELOW normal Surgi lisa Patho logy Repor t GEORGE BECERRA NAME: MARLEEN WILLIAMSON PATH: [id number] DATE of : 12/14 4 Copy to: Diagn osis: Jazmyn clark r and bruna cruz, excis ion: Chron ic felecia cysti tis and felecia lithi asis SOURC E OF SPECI MEN: JAZMYN CLARK R, JAZMYN CLARK R & BRUNA CRUZ CLINI LISA INFOR MATIO N: K81.1 CHRON IC FELECIA CYSTI TIS Gross Descr iptio n: George becerra name and date of verif ied. Recei nydia in forma troy label ed with the george becerra's name and desig nated as kristen rosales er and bruna nts is a felecia cyste ctomy speci men (8.0 x 2.5 x 2.0 cm) which has a pinki sh-pu rple, wang h to rough ened surfa ce. No lymph node is ident ified in the cysti c duct regio n. The speci men has not been previ ously incis ed and no perfo ratio n is ident ified . The cysti c duct is paten t. The gallb ladde r lumen conta ins three wang h black felecia liths which range in size from 0.6 to 0.8 cm in great est dimen jem. The mucos a is dark neyda sh-ta n with focal light felecia stero losis . The wall of the gallb ladde r measu res up to 0.4 cm in thick ness. Repre senta tive secti ons are submi tted in a singl e casse tte label ed A1. JAB 12/12 02:02 PM Micro scopi c Descr iptio n: A micro scopi c exami natio n has been perfo rmed and the resul t(s) are as noted above . ZULY Oakley JARRETT MERINO MD Ruth d Out Date: 12/15 09:00 Page 1 of 1 Not Available [facility] [address] [place] [address], [place], [address], 12/15/2024 09:01:13 11/29/19 25 11/28/2024 US, abdom en, limit ed [address] [address] Patien t Name: BOB guillory : [phone] Orderi ng Provid er: MARIANA DAVILA EXAM DATE: 2024 EXAM: US RIGHT UPPER QUADRA NT CLINIC AL INFORM ATION: Right upper quadra nt pain. TECHNI QUE: Multip le sonogr aphic images of the right upper quadra nt were obtain ed. COMPAR NATI: None. FINDIN GS: LIVER: Fatty metamo rphosi s of the liver. Normal blood flow in the portal vein. No obviou s focal lesion . BILIAR Y SYSTEM : Gallbl adder is normal in size and wall thickn ess. Possib le tiny stone in the fundus of the gallbl adder. No intrah epatic biliar y dilata tion. CBD measur ement = 3 mm. Normal in size. PANCRE : Poorly visual ized due to bowel gas RIGHT KIDNEY : Length = 10.8 cm. No hydron ephros is, mass or stone. IMPRES JEM: 1. Fatty metamo rphosi s of the liver 2. Subtle gallst one Interp reted By: Timothy Escamilla MD Electr onical ly Signed By: Timothy Escamilla MD on 11/29/19 12:[email or web address] [facility] [address], [address], 12/03/2024 14:09:45 Result Notes None recorded. Problems Name Problem SNOMED Code Status Onset Date Resolution Date Notes Provider Name and Address Organization Details Recorded Time Umbilical hernia 323002031 Active 2021 TIMOTHY KRISHNA JR, MD [address] [place] [address], [address], [facility] 2 15:03:19 Low back pain 375272504 Active 2021 TIMOTHY KRISHNA JR, MD [address] [place] [address], [address], [facility] 2 08:51:17 History of polyp of colon 742446499 Active 2023 MARIANA DAVILA APRN [facility] [place], [address], [facility] 4 17:54:08 Essential hypertension 17957467 Active 2023 MARIANA DAVILA APRN [address] [place], [address], [facility] 4 17:54:14 Gastroesophage al reflux disease without esophagitis 823373464 Active 2023 MARIANA DAVILA APRN [address] [place] [address], [address], [facility] 4 17:54:24 Right upper quadrant pain 577095209 Active 2024 TIMOTHY KRISHNA JR, MD [address] [place] [address], [address], [facility] 5 10:33:07 Irritable bowel syndrome 22865194 Active 2024 TIMOTHY KRISHNA JR, MD [address] [place] [address], [address], [facility] 5 10:33:20 Chronic cholecystitis 93048327 Active 2024 TIMOTHY KRISHNA JR, MD [address] [place] [address], [address], [facility] 5 10:40:00 Problem Notes None recorded. Procedures Surgical History Date Name Laterality Status Provider Name and Address Organization Details Recorded Time 5 Skin Tag Removal completed Mary Ann Morris [facility] 05/16/2024 09:06:31 4 Destruction BN Lesions completed Clementine Pickens [facility] 09/21/2023 09:10:32 4 Skin Tag Removal completed MARIANA DAVILA, [employer] [address] [place] [address], [address], [facility] 06/18/2023 17:59:37 5 vasectomy completed Eileen Napier [facility] 10/21/2021 11:54:31 open reduction of dislocation of ankle completed [facility] 01/05/2022 14:11:34 hernia repair completed [facility] 01/31/2022 08:22:16 Imaging Results None recorded. Procedure Notes None recorded. Medical Equipment None Reported. Allergies No known drug allergies Medications Name Sig Start Date Stop Date Status Note LastModified by Organization Details LastModified Time cyclobenza jamie 10 mg tablet Take 1 tablet 3 [...] completed Not Available Not Available Not Available hydrocodon e 5 mg-acetami nophen 325 mg tablet Take 1 tablet every 6 hours by oral route as needed. 01/01 completed 01/01/25 pt states that he did not need Not Available Not Available Not Available meloxicam [...] Not Available Not Available omeprazole 40 mg capsule,de layed release Take 1 capsule every day by oral route. 04/18 completed Not Available Not Available Not Available triamcinol one acetonide 0.1 % topical cream Apply a thin layer to the affected areas of rash on the left elbow twice daily for 2 weeks. Then may use 2-3 times per week as needed for flares. 12/04 completed Not Available Not Available Not Available ondansetro n 8 mg disintegra ting tablet Place 1 tablet twice a day by translin gual route as needed. 2024 active Not Available Not Available Not Avai lable losartan 25 mg tablet Take 1 tablet every day by oral route for 90 days. 2024 active Not Available Not Available Not Avai lable omeprazole 20 mg capsule,de layed release Take 1 capsule every day by oral route as needed for 90 days. 2024 active Not Available Not Available Not Avai lable montelukas t 10 mg tablet Take 1 tablet every day by oral route for 90 days. 04/18 completed Not Available Not Available Not Available aspirin 81 mg tablet Take 1 tablet every day by oral route. active Not Available Not Available No t Available fluticason e propionate 50 mcg/actuat ion nasal spray,susp ension [place] 1 spray every day by intranas al route for 30 days. 2023 active Not [...] lable tizanidine 4 mg capsule Take 1 capsule( s) 3 TIMES A DAY by oral route as needed for back spasm. 06/14 completed Not Available Not Available Not Available ramelteon 8 mg tablet Take 1 tablet every day by oral route for 30 days. 11/05 completed Not Available Not Available Not Available IBU 06/14 completed Not Available Not Available Not Available Tylenol 11/05 completed Not Available Not Available Not Available Suprep Bowel Prep Kit 17.5 gram-3.13 gram-1.6 gram oral solution Take as directed 09/18 completed Not Available Not Available Not Available Wegovy 0.25 mg/0.5 mL subcutaneo us pen injector Inject 0.25 mg every week by subcutan eous route for 28 days. 06/14 completed Not Available Not Available Not Available Mounjaro 2.5 mg/0.5 mL subcutaneo us pen injector Inject 2.5 mg every week by subcutan eous route for 30 days. 11/05 completed Not Available Not Available Not Available Zepbound 2.5 mg/0.5 mL subcutaneo us pen injector Inject 2.5 mg every week by subcutan eous route for 30 days. 04/18 completed Not Available Not Available Not Available Vitals None Recorded Social History Question Answer Notes LastModified by Organizat ion Details LastModified Time Tobacco Smoking Status [facility] 11:55:36 What Is Your Level Of Caffeine Consumption? Moderate Information not available 11/05/2024 What Was The Date Of Your Most Recent Tobacco Screening? 10/13/2024 [email or web address] Information not available 10/13/2024 Do You Have Smoke And Carbon Monoxide Detectors In Your Home? Yes [email or web address] Information not available 10/21/2021 Are There Any Smokers In Your House? No Information not available 10/21/2021 Do You Use Sunscreen Routinely? Yes [email or web address] Information not available 10/21/2021 Has Tobacco Cessation Counseling Been Provided? No [email or web address] Information not available 10/21/2021 Sex: Male Functional Status Question Answer Note LastModified by Organizat ion Details LastModified Time Do you use any illicit or recreational drugs? No [email or web address] Information not available 10/21/2021 Do you or have you ever used any other forms of tobacco or nicotine? No [email or web address] Information not available 10/21/2021 What is your level of alcohol consumption? Occasional Information not available 11/05/2024 Mental Status None recorded. Family History Relationship Description Onset Age of this Age Resolved Age Notes LastModified by Organization Details LastModified Time Sister Suicide 30 Not available 11/05/2024 16:29:46 Medical History Condition Response Diabetes N Coronary Artery Disease N Thyroid Disease N Congestive Heart Failure (CHF) N Gallbladder Disease N Diverticulitis N Stroke N Asthma N COPD N Crohn's Disease N Colon Polyps Y Liver Disease N Heart Attack (ME) N Heart Disease N Hypertension Y Kidney Disease N Immunizations Vaccine Type Date Status Note Provider Nam e and Address Organization Details Recorded Time DTaP-IPV 03/26/2015 completed Eileen Napier [facility] 10/21/2021 11:53:27 Past Encounters Encounter ID Performer Location Encounter Start Date Encounter Closed Date Diagnosis/Indication Diagnosis SNOMED-CT Code Diagnosis ICD10 Code Diagnosis IMO Codes Diagnosis Note [id number] TIMOTHY KRISHNA JR, MD [facility] [address] [place] [address] 12/04/2024 14:45:55 12/09/2024 15:28:50 Gastroesophageal reflux disease without esophagitis 594516101 K21.9 On omeprazole daily Umbilical hernia 5042940 07 K42.9 Status post laparoscop ic repair 2021 with no complicati on. 6 inch Ventraligh t mesh used. Irritable bowel syndrome 64621480 K58.9 [id number] Start Bentyl Chronic cholecystitis 20 599865 K81.1 12823 Status post attack on 10/18. Ultrasound shows small gallstone. 90% chance that laparoscop ic cholecyste ctomy will resolve his symptoms. 3% chance of severe complicati on which might include bleeding or biliary injury. He wishes to proceed with laparoscop ic cholecyste ctomy. Postoperat saulo restrictio ns discussed. He lifts 80 pounds at work and will not be able to return to this for at least 3 weeks postop [id number] TIMOTHY KRISHNA JR, MD SURGERY SCHEDULE [address] [place] [address] 12/12/2024 06:10:38 12/12/2024 06:13:12 Health Concerns Section Related Observation LastModified by Organization Detai ls LastModified Time None Recorded Concern Status LastModified by Organization Details LastModified Time None Recorded Payers Encounter Date Sequence Insurance Name Policy Number Policy Baehna Covered Member ID Bahena Member ID Guarantor Name 12/12/2024 1 [place]: YARED WEI [facility] [id number] Bob Williamson [id number] Bob Williamson
--- OUTSIDE RECORDS SUMMARY | 2025-02-12 16:49 | XMS_ITS | Continuity of Care Document ---
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 Not Available 2024 09:29:30 11/29/19 25 11/28/2024 US, abdom en, limit ed [facility] [address] [place], [place] [id number] [phone] Patien t Name: BOB guillory : [phone] [...] 2. Subtle gallst one Interp reted By: Timtohy Escamilla MD Electr onical ly Signed By: Timothy Escamilla MD on 11/29/19 12:[address] Radiology [facility] [address] [place], [address], 12/03/2024 14:09:45 Result Notes None recorded. Problems Name Problem SNOMED Code Status Onset Date Resolution Date Notes Provider Name and Address Organization Details Recorded Time Umbilical hernia 773892031 Active 2021 TIMOTHY KRISHNA JR, MD [facility] [place], [address], [facility] 2 15:03:19 Low back pain 803345502 Active 2021 TIMOTHY KRISHNA JR, MD [facility] [place], [address], [facility] 2 08:51:17 History of polyp of colon 304140359 Active 2023 MARIANA DAVILA, [employer]P [employer] [address] [place], [address], [facility] 4 17:54:08 Essential hypertension 69964296 Active 2023 MARIANA DAVILA, [employer] [address] [place], [address], [facility] 4 17:54:14 Gastroesophage al reflux disease without esophagitis 541933927 Active 2023 MARIANA DAVILA, GREGORY [address] [place] [address], [address], [facility] 4 17:54:24 Right upper quadrant pain 722505109 Active 2024 TIMOTHY KRISHNA JR, MD [address] [place] [address], [address], [facility] 5 10:33:07 Irritable bowel syndrome 65321341 Active 2024 TIMOTHY KRISHNA JR, MD [address] [place] [address], [address], [facility] 5 10:33:20 Chronic cholecystitis 12279168 Active 2024 TIMOTHY KRISHNA JR, MD [address] [place] [address], [address], [facility] 5 10:40:00 Problem Notes Documentation Provider Name and Address Organization Details Recorded Time General Surgeon Consult Note : [address] [address]DHKGS, Steve (Legal name: Bob Williamson) (id #[id number], : 1975) [address] [address] Encounter Summary - Progress Note Date Printed: 12/04/2024 Documents sent via fax will include the followingmessage: This fax may contain sensitive and confidential personal health information that is being sent for the sole use of the intended recipient. Unintended recipients are directed to securely destroy any materials received. You are hereby notified that the unauthorized disclosure or other unlawful use of this fax or any personal health information is prohibited. To the extent patient information contained in this fax is subject to 42 CFR Part 2, this regulation prohibits unauthorized disclosure of these records. If you received this fax in error, please visit [email or web address] to notify the sender and confirm that the information will be destroyed. If you do not have internet access, please call to notify the sender and confirm that the information will be destroyed. Thank you for your attention and cooperation. [ID:[id number]] Patient Bob Williamson (48yo, M) #[id number] 1975 Patient Demographics: Address [address] [place] [address] Encounter Notes: Encounter Reason/DateNone recorded 12/04/2024 - 03:00PM - [facility]AL [facility]ERY [facility] History of Present Illness11/06/2024I am seeing Mr. Williamson for evaluation of severe right upper quadrant pain/gallbladder diseaseI had performed laparoscopic repair of umbilical hernia on him December 2021 [address] mesh. He had no problems after thisHe had colonoscopy 2022 showing diverticulosis sigmoid colon and tubular adenoma sigmoid colon He had first time ever severe episode of right lower chest/right upper quadrant pain 3 weeks ago. He went to [facility]. CTA of the chest showed no pulmonary embolus. CBC and CMP were normal. ER physician felt he had biliary colic. He denies any severe pain since then. He does have some constant low-grade right upper quadrant pain/pressure. He denies history of jaundice, pancreatitis or peptic ulcer diseaseHe has GERD. If he misses an omeprazole dose he has heartburn.He lost 35 pounds since March with not eating after 6 PM. He walks 9 miles a day at work. He was going to take Mounjaro but it was too expensive and he did not start it. He denies blood in his stool. He has daily bowel movements. He moves his bowels 20 minutes after a meal 4 times a day. 12/04/2024 Ultrasound showed him to have tiny stone in the gallbladder fundus. Fatty liver present. He complains of constant right upper quadrant pressure that is worse when he has spicy foods. He can have bowel urgency after spicy meals. He also complains of right shoulder pain with meals. Review of SystemsROS as noted in the HPI Vitals Ht: 6 ft12/04/2024 02:55 pm Wt: 229 lbs12/04/2024 02:56 pm BMI: 31.109 02:56 pm BP: 139/72 sitting L arm12/04/2024 02:56 pm Pulse: 85 bpm [id number]/04/2024 02:56 pm Results/Interpretations Physical ExamConstitutional:General Appearance: healthy-appearing, well-nourished, andoverweight. Level of Distress: NAD. Ambulation: ambulating normally. Psychiatric:Mental Status: normal mood and affect and active and alert. Head:Head: normocephalic and atraumatic. Eyes:Lids and Conjunctivae: non-injected. EOM: EOMI. Sclerae: non-icteric. ENMT:Hearing: no hearing loss. Neck:Neck: FROM and trachea midline. Lungs:Auscultation: breath sounds normal and good air movement. Cardiovascular:Heart Auscultation: RRR and no murmurs. Abdomen:Inspection and Palpation: soft, non-distended, and no masses;Mild right upper quadrant tenderness. Musculoskeletal::Motor Strength and Tone: normal and normal tone. Extremities: no edema. Neurologic:Gait and Station: normal gait and station. Coordination and Cerebellum: no tremor. Skin:Inspection and palpation: no rash or jaundice. Back:Thoracolumbar Appearance: normal curvature. Procedure DocumentationNone recorded Assessment and Plan1. Gastroesophageal reflux disease without esophagitis- Onset: 06/18/2023 -On omeprazole xtjzhB48.9: Gastro-esophageal reflux disease without esophagitis 2. Umbilical hernia- Onset: 01/05/2022 -Status post laparoscopic repair 2021 with no complication. 6 inch Ventralight mesh used.K42.9: Umbilical hernia without obstruction or gangrene 3.Irritable bowel syndrome, unspecified- Onset: 11/06/2024Start RbgrfiY51.9: Irritable bowel syndrome, unspecified 4.Chronic cholecystitis- Onset: 11/06/2024Status post attack on 10/18. Ultrasound shows small gallstone. 90% chance that laparoscopic cholecystectomy will resolve his symptoms. 3% chance of severe complication which might include bleeding or biliary injury. He wishes to proceed with laparoscopic cholecystectomy. Postoperative restrictions discussed. He lifts 80 pounds at work and will not be able to return to this for at least 3 weeks mfmzjrL34.1: Chronic cholecystitis Return to Office to see MARIANA DAVILA APRN for PHYSICAL EXAM at [facility] on or around 04/15/2025 to see ASIYA VEGA MD at [facility] on or around 06/30/2025 Patient Medical History: Allergies List Reviewed Allergies NKDA Medications Reviewed Medications NameDate Source aspirin 81 mg tabletTake 1 tablet(s) every day by oral route.06/15/23 entered Mary Ann Broussard fluticasone propionate 50 mcg/actuation nasal spray,suspensionSpray 1 spray(s) every day by intranasal route for 30 days.09/26/23 prescribed MARIANA DAVLIA APRN losartan 25 mg tabletTake 1 tablet(s) every day by oral route for 90 days.10/06/24 prescribed MARIANA DAVILA APRN omeprazole 20 mg capsule,delayed releaseTake 1 capsule(s) every day by oral route as needed.10/13/24 entered Ramila South tadalafiL 20 mg tabletTake 1 tablet(s) every day by oral route as needed for 30 days.10/06/24 prescribed MARIANA DAVILA APRN Family HistoryReviewed Family History Sister - Suicide ( age: 30) Past Medical HistoryReviewed Past Medical History Colon Polyps:Y Hypertension:Y Notes: arthritis Vaccine HistoryReviewed Vaccines Vaccine Type Date Amt. Route Site [facility] Lot # [id number]. Exp. Date VIS VIS Given [employer] Diphtheria, Tetanus, Pertussis DTaP-IPV 03/26/15 Polio DTaP-IPV 03/26/15 decline COVID and Flu Vaccine 03/13/22 Electronically Signed by: TIMOTHY KRISHNA JR, MD MARIANA DAVILA APRN [address] [place], [address], [facility] 12/05/2024 08:13:25 Procedures Surgical History Date Name Laterality Status Provider Name and Address Organization Details Recorded Time 5 Skin Tag Removal completed Mary Ann Morris [facility] 05/16/2024 09:06:31 4 Destruction BN Lesions completed Clementine Pickens [facility] 09/21/2023 09:10:32 4 Skin Tag Removal completed MARIANA DAVILA, [employer]ATE[employer] [address] [place], [address], [facility] 06/18/2023 17:59:37 5 vasectomy completed Kirbylaila Napier [facility] 10/21/2021 11:54:31 open reduction of dislocation of ankle completed [facility] 01/05/2022 14:11:34 hernia repair completed [facility] 01/31/2022 08:22:16 Imaging Results None recorded. Procedure [...] propionate 50 mcg/actuat ion nasal spray,susp ension [place] 1 spray every day by intranas al [...] mass index (BMI) Body weight Heart rate Systolic And Diastolic Provider Name and Address Organization Details Last Updated DateTime 12/04/2024 182.88 cm 31.1 kg/m2 183403.6 5 g 85 /min 139/72 mm[Hg] Ela Duque [facility] 12/04/2024 14:56:45 Social History Question Answer Notes LastModified by Organizat ion Details LastModified Time Tobacco Smoking Status Never Smoker Eileen Napier [facility] 10/21/2021 11:55:36 What Is Your Level Of Caffeine Consumption? Moderate Information not available 11/05/2024 What Was The Date Of Your Most Recent Tobacco Screening? 10/13/2024 [email or web address] Information not available 10/13/2024 Do You Have Smoke And Carbon Monoxide Detectors In Your Home? Yes [email or web address] Information not available 10/21/2021 Are There Any Smokers In Your House? No [email or web address] Information not available 10/21/2021 Do You Use Sunscreen Routinely? Yes [email or web address] Information not available 10/21/2021 Has Tobacco Cessation Counseling Been Provided? No [email or web address] Information not available 10/21/2021 Sex: Male Functional Status Question Answer Note LastModified by Organizat ion Details LastModified Time Do you use any illicit or recreational drugs? No [email or web address] Information not available 10/21/2021 Do you or have you ever used any other forms of tobacco or nicotine? No [email or web address] Information not available 10/21/2021 What is your level of alcohol consumption? Occasional Information not available 11/05/2024 Mental Status None recorded. Family History Relationship Description Onset Age of this Age Resolved Age Notes LastModified by Organization Details LastModified Time Sister Suicide 30 Not available 11/05/2024 16:29:46 Medical History Condition Response Coronary Artery Disease N COPD N Stroke N Crohn's Disease N Kidney Disease N Gallbladder Disease N Asthma N Thyroid Disease N Liver Disease N Colon Polyps Y Heart Attack (NM) N Diabetes N Congestive Heart Failure (CHF) N Diverticulitis N Heart Disease N Hypertension Y Immunizations Vaccine Type Date Status Note Provider Nam e and Address Organization Details Recorded Time DTaP-IPV 03/26/2015 completed Eileen Napier [facility] 10/21/2021 11:53:27 Past Encounters Encounter ID Performer Location Encounter Start Date Encounter Closed Date Diagnosis/Indication Diagnosis SNOMED-CT Code Diagnosis ICD10 Code Diagnosis IMO Codes Diagnosis Note [id number] TIMOTHY KRISHNA JR, MD [facility] [address] [place] [address] 11/06/2024 09:04:08 11/10/2024 16:45:11 Gastroesophageal reflux disease without esophagitis 475423431 K21.9 On omeprazole daily Umbilical hernia 6551595 07 K42.9 Status post laparoscop ic repair 2021 with no complicati on. 6 inch Ventraligh t mesh used. Irritable bowel syndrome 49817015 K58.9 4829342686 Start Bentyl Chronic cholecystitis 20 818371 K81.1 41085 Status post attack on 10/18. Await ultrasound result. Will come to laparoscop ic cholecyste ctomy. I explained to him there is 3% chance of severe complicati on. [id number] TIMOTHY KRISHNA JR, MD [facility] [address] [place] [address] 12/04/2024 14:45:55 12/09/2024 15:28:50 Gastroesophageal reflux disease without esophagitis 480234841 K21.9 On omeprazole daily Umbilical hernia 7779352 07 K42.9 Status post laparoscop ic repair 2021 with no complicati on. 6 inch Ventraligh t mesh used. Irritable bowel syndrome 50157894 K58.9 [id number] Start Bentyl Chronic cholecystitis 20 173255 K81.1 47129 Status post attack on 10/18. Ultrasound shows [...] this for at least 3 weeks postop Health Concerns Section Related Observation LastModified by Organization Detai ls LastModified Time None Recorded Concern Status LastModified by Organization Details LastModified Time None Recorded Payers Encounter Date Sequence Insurance Name Policy Number Policy Bahena Covered Member ID Bahena Member ID Guarantor Name 12/04/[address] [facility] [id number] Bob Williamson [id number] Bob Williamson Notes Date Note Type Note Provider Name and Address Organization Details Recorded Time 12/04/2024 text/html ROS as noted in the HPI 11/06/2024I am seeing Mr. Williamson for evaluation of severe right upper quadrant pain/gallbladder diseaseI had performed laparoscopic repair of umbilical hernia on him December 2021 using [address] mesh. He had no problems after thisHe had colonoscopy 2022 showing diverticulosis sigmoid colon and tubular adenoma sigmoid colon He had first time ever severe episode of right lower chest/right upper quadrant pain 3 weeks ago. He went to [facility]. CTA of the chest showed no pulmonary embolus. CBC and CMP were normal. ER physician felt he had biliary colic. He denies any severe pain since then. He does have some constant low-grade right upper quadrant pain/pressure. He denies history of jaundice, pancreatitis or peptic ulcer diseaseHe has GERD. If he misses an omeprazole dose he has heartburn.He lost 35 pounds since March with not eating after 6 PM. He walks 9 miles a day at work. He was going to take Mounjaro but it was too expensive and he did not start it. He denies blood in his stool. He has daily bowel movements. He moves his bowels 20 minutes after a meal 4 times a day. 12/04/2024 Ultrasound showed him to have tiny stone in the gallbladder fundus. Fatty liver present. He complains of constant right upper quadrant pressure that is worse when he has spicy foods. He can have bowel urgency after spicy meals. He also complains of right shoulder pain with meals. TIMOTHY KRISHNA JR, MD [facility] [place], [address], [facility] 12/04/2024 15:18:31
--- OUTSIDE RECORDS SUMMARY | 2025-02-12 16:49 | XMS_ITS | Continuity of Care Document ---
Author Organization [facility], GENERAL SURGERY [facility] Address [address] [place] [address] Care Team Providers Care Nozzleman Name Role Phone TIMOTHY KRISHNA JR General [...] Abnormal Flag Note LastModifiedBy Organization Detail LastModifiedTime 12/12/19 25 12/11/2024 COMPL ETE BLOOD COUNT white blood cells 4.5 10*3/ uL 3.8-10 .8 normal Not Available [facility] [address] [place] [address], [address], 12/11/2024 11:52:23 12/12/19 25 12/11/2024 COMPL ETE BLOOD COUNT red blood cells 5.16 10*6/ uL 4.20-5 .80 normal Not Available [facility] [address] [place], [address], 12/11/2024 11:52:23 12/12/19 25 12/11/2024 COMPL ETE BLOOD COUNT hemoglobin 16.1 g/dL 14.0-1 8.0 normal Not Available [facility] [address] [place] [address], [address], 12/11/2024 11:52:23 12/12/1912/11/2024 COMPL ETE BLOOD COUNT hematocrit 46.5 % 40.0-5 2.0 normal Not Available [facility] [address] [place] [address], [address], 12/11/2024 11:52:23 12/12/1912/11/2024 COMPL ETE BLOOD COUNT MCV 90 fL 80-100 normal Not Available [facility] [address] [place] [address], [address], 12/11/2024 11:52:23 12/12/1912/11/2024 COMPL ETE BLOOD COUNT MCH 31 pg 26-35 normal Not Available [facility] [address] [place] [address], [address], 12/11/2024 11:52:23 12/12/1912/11/2024 COMPL ETE BLOOD COUNT MCHC 35 g/dL 32-36 normal Not Available [facility] [address] [place] [address], [address], 12/11/2024 11:52:23 12/12/1912/11/2024 COMPL ETE BLOOD COUNT RDW 13.0 % 11.0-1 5.0 normal Not Available [facility] [address] [place] [address], [address], 12/11/2024 11:52:23 12/12/1912/11/2024 COMPL ETE BLOOD COUNT MPV 8.8 fL 6.2-10 .5 normal Not Available [facility] [address] [place] [address], [address], 12/11/2024 11:52:23 12/12/19 25 12/11/2024 COMPL ETE BLOOD COUNT platelet count 221 10*3/ uL 150-40 0 normal Not Available [facility] [address] [place] [address], [address], 12/11/2024 11:52:23 12/12/1912/11/2024 COMPL ETE BLOOD COUNT neutrophil,a bsolute 1.9 10*3/ uL 1.6-8. 4 normal Not Available [facility] [address] [place] [address], [address], 12/11/2024 11:52:23 12/12/1912/11/2024 COMPL ETE BLOOD COUNT lymphocyte,a bsolute 1.7 10*3/ uL 0.4-5. 1 normal Not Available [facility] [address] [place] [address], [address], 12/11/2024 11:52:23 12/12/1912/11/2024 COMPL ETE BLOOD COUNT monocyte,abs olute 0.8 10*3/ uL 0.0-1. 2 normal Not Available [facility] [address] [place] [address], [address], 12/11/2024 11:52:23 12/12/1912/11/2024 COMPL ETE BLOOD COUNT eosinophil,a bsolute 0.1 10*3/ uL 0.0-0. 8 normal Not Available [facility] [address] [place] [address], [address], 12/11/2024 11:52:23 12/12/1912/11/2024 COMPL ETE BLOOD COUNT basophil,abs olute 0.0 10*3/ uL 0.0-0. 3 normal Not Available [facility] [address] [place] [address], [address], 12/11/2024 11:52:23 12/12/1912/11/2024 COMPL ETE BLOOD COUNT % neutrophils 42.4 % 42.0-7 8.0 normal Not Available [facility] [address] [place] [address], [address], 12/11/2024 11:52:23 12/12/19 25 12/11/2024 COMPL ETE BLOOD COUNT % lymphocytes 36.9 % 11.0-4 7.0 normal Not Available [facility] [address] [place] [address], [address], 12/11/2024 11:52:23 12/12/19 25 12/11/2024 COMPL ETE BLOOD COUNT % monocytes 18.0 % 0.0-11 .0 high Not Available [facility] [address] [place] [address], [address], 12/11/2024 11:52:23 12/12/19 25 12/11/2024 COMPL ETE BLOOD COUNT % eosinophils 2.2 % 0.0-7. 0 normal Not Available [facility] [address] [place] [address], [address], 12/11/2024 11:52:23 12/12/19 25 12/11/2024 COMPL ETE BLOOD COUNT % basophils 0.5 % 0.0-3. 0 normal Not Available [facility] [address] [place] [address], [address], 12/11/2024 11:52:23 12/12/19 25 12/11/2024 COMPL ETE BLOOD COUNT nucleated red cells 0.1 % 0.0-0. 9 normal Not Available [facility] [address] [place] [address], [address], 12/11/2024 11:52:23 12/12/19 25 12/11/2024 COMPL ETE BLOOD COUNT nucleated RBCs, absolute 0.01 10*3/ uL not estab. normal Not Available [facility] [address] [place] [address], [address], 12/11/2024 11:52:23 12/12/19 25 12/11/2024 UA MICRO SCOPI C, CULTU RE IF INDIC ATED mucus, urine Trace /lpf not establ ished normal Not Available [facility] [address] [place], [address], 12/11/2024 11:55:12/12/19 25 12/11/2024 UA MICRO SCOPI C, CULTU RE IF INDIC ATED WBC, urine Rare 0-5/hp f normal Not Available [facility] [address] [place] [address], [address], 12/11/2024 11:55:09 12/12/19 25 12/11/2024 UA MICRO SCOPI C, CULTU RE IF INDIC ATED RBC, urine 3-10 0-2/hp f abnormal Not Available [facility] [address] [place] [address], [address], 12/11/2024 11:55:09 12/12/19 25 12/11/2024 UA MICRO SCOPI C, CULTU RE IF INDIC ATED squamous epi. cells 0-5 0-5/hp f normal Not Available [facility] [address] [place], [address], 12/11/2024 11:55:12/12/19 25 12/11/2024 UA MICRO SCOPI C, CULTU RE IF INDIC ATED reflex culture see below normal UA resul ts do not meet cultu re crite yazmin. Not Available [facility] [address] [place] [address], [address], 12/11/2024 11:55:12/13/1912/12/2024 SURGI LISA surgical SEE BELOW normal Surgi lisa Patho logy Repor kahlil BECERRA NAME: MARLEEN WILLIAMSON PATH: [id number] DATE of : 12/14 4 Copy to: Diagn osis: Jazmyn clark r and bruna nts, excis ion: Chron ic felecia cysti tis and felecia lithi asis SOURC E OF SPECI MEN: JAZMYN CLARK R, JAZMYN CLARK R & [facility] LISA INFOR MATIO N: K81.1 CHRON IC FELECIA CYSTI TIS Gross Descr iptio n: Waldemar nt name and date of verif ied. Recei nydia in forma troy label ed with the patie nt's name and desig nated as gall bladd er and bruna nts is a felecia [...] to 0.8 cm in great est dimen kristy. The mucos a is dark neyda sh-ta [...] t(s) are as noted above . ZULY GALVEZ Cele MERINO MD Ruth d Out Date: 12/15 09:00 Page 1 of 1 Not Available [facility] [address] [place] [address], [address], 12/15/2024 09:01:13 Result Notes None recorded. Problems Name Problem SNOMED Code Status Onset Date Resolution Date Notes Provider Name and Address Organization Details Recorded Time Umbilical hernia 128434405 Active 2021 TIMOTHY KRISHNA JR, MD [address] [place] [address], [address], [facility] 2 15:03:19 Low back pain 482781279 Active 2021 TIMOTHY KRISHNA JR, MD [address] [place] [address], [address], [facility] 2 08:51:17 History of polyp of colon 479343581 Active 2023 MARIANA DVAILA, NIGHT SHIFT [address] [place], [address], [facility] 4 17:54:08 Essential hypertension 29971014 Active 2023 MARIANA DAVILA, NIGHT SHIFT [address] [place], [address], [facility] 4 17:54:14 Gastroesophage al reflux disease without esophagitis 422561857 Active 2023 MARIANA DAVILA, NIGHT SHIFT [address] [place], [address], [facility] 4 17:54:24 Right upper quadrant pain 633479904 Active 2024 TIMOTHY KRISHNA JR, MD [address] [place] [address], [address], [facility] 5 10:33:07 Irritable bowel syndrome 66915349 Active 2024 TIMOTHY KRISHNA JR, MD [address] [place] [address], [address], [facility] 5 10:33:20 Chronic cholecystitis 36695482 Active 2024 TIMOTHY KRISHNA JR, MD [address] [place] [address], [address], [facility] 5 10:40:00 Problem Notes Documentation Provider Name and Address Organization Details Recorded Time General Surgeon Consult Note : [facility] [address] [id number], Steve (Legal name: Chris Williamson) (id #[id number], : 1975) [facility] [address] [place] [id number] Date: 01/01/2025RE: Chris Williamson, : 1975, PT ID #[id number] Davila APRN / [facility], [facility], I would like to thank you for referring Chris Williamson to our practice for consultation and evaluation. I have enclosed a copy of the office evaluation for your records. Sincerely, Electronically Signed by: [facility] Reason/Date Pt states he has been doing well since his last visit. He does report some severe nausea that has made it very difficult to eat. He requests a refill of his nausea medication. 01/01/2025 - 09:20AM - GENERAL SURGERY [facility] History of Present IllnessHe underwent laparoscopic cholecystectomy on 12/12. Pathology showed chronic cholecystitis. He has underlying GERD and takes omeprazole. He has some worsening of his nausea early after the surgery but it has improved. He states when he thinks about food he has some nausea but he can eat an [employer] sandwich without problems. He has excellent healing. I told him it may take a month for his body to adjust to not having a gallbladder. He can follow-up as needed.Review of SystemsNone recordedPhysical ExamNone recordedProcedure DocumentationNone recordedAssessment/PlanNone recorded Return to Office to see MARIANA DAVILA APRN for PHYSICAL EXAM at [facility] on or around 04/15/2025 to see ASIYA VEGA MD at [facility] on or around 06/30/2025 MARIANA DAVILA APRN [address] [place], [address], [facility] 01/01/2025 12:46:43 Procedures Surgical History Date Name Laterality Status Provider Name and Address Organization Details Recorded Time 5 Skin Tag Removal completed Mary Ann Morris [facility] 05/16/2024 09:06:31 4 Destruction BN Lesions completed Clementine Pickens [facility] 09/21/2023 09:10:32 4 Skin Tag Removal completed MARIANA DAVILA APRN [address] [place], [address], [facility] 06/18/2023 17:59:37 5 vasectomy completed Eileen Napier [facility] 10/21/2021 11:54:31 open reduction of dislocation of ankle completed Ela [facility] 01/05/2022 14:11:34 hernia repair completed [facility] 01/31/2022 08:22:16 Imaging Results None recorded. Procedure [...] propionate 50 mcg/actuat ion nasal spray,susp ension [place] 1 spray every day by intranas al [...] and Address Organization Details Last Updated DateTime 01/01/2025 182.88 cm 31 kg/m2 716586.1 6 g 86 /min 135/89 mm[Hg] Dior Eddy [facility] 01/01/2025 09:14:32 Social History Question Answer Notes LastModified by Edufii Details LastModified Time Tobacco Smoking Status Never Smoker Eileen Napier [facility] 10/21/2021 11:55:36 What Is Your Level Of Caffeine Consumption? Moderate Information not available 11/05/2024 What Was The Date Of Your Most Recent Tobacco Screening? 10/13/2024 [email or web address] Information not available 10/13/2024 Do You Have Smoke And Carbon Monoxide Detectors In Your Home? Yes [email or web address] Information not available 10/21/2021 Are There Any Smokers In Your House? No [email or web address] Information not available 10/21/2021 Do You Use Sunscreen Routinely? Yes [email or web address] Information not available 10/21/2021 Has Tobacco Cessation Counseling Been Provided? No Information not available 10/21/2021 Sex: Male Functional Status Question Answer Note LastModified by [email or web address] ion Details LastModified Time Do you use any illicit or recreational drugs? No Information not available 10/21/2021 Do you or have you ever used any other forms of tobacco or nicotine? No [email or web address] Information not available 10/21/2021 What is your [...] Gallbladder Disease N Diverticulitis N Stroke N COPD N Asthma N Crohn's Disease N Colon Polyps Y Liver Disease N Heart Attack (OK) N Heart Disease N Hypertension Y Kidney Disease N Immunizations Vaccine Type Date Status Note Provider Nam e and Address Organization Details Recorded Time DTaP-IPV 03/26/2015 completed Eileen Napier [facility] 10/21/2021 11:53:27 Past Encounters Encounter ID Performer Location Encounter Start Date Encounter Closed Date Diagnosis/Indication Diagnosis SNOMED-CT Code Diagnosis ICD10 Code Diagnosis IMO Codes Diagnosis Note [id number] TIMOTHY KRISHNA JR, MD GENERAL SURGERY [address] [place] [address] 12/04/2024 14:45:55 12/09/2024 15:28:50 Gastroesophageal reflux disease without esophagitis 981956555 K21.9 On omeprazole daily Umbilical hernia 1345883 07 K42.9 Status post laparoscop ic repair 2021 with no complicati on. 6 inch Ventraligh t mesh used. Irritable bowel syndrome 73464741 K58.9 6952469016 Start Bentyl Chronic cholecystitis 20 799966 K81.1 45690 Status post attack on 10/18. Ultrasound shows [...] this for at least 3 weeks postop [id number] TIMOTHY KRISHNA JR, MD SURGERY SCHEDULE [address] [place] [address] 12/12/2024 06:10:38 12/12/2024 06:13:12 [id number] TIMOTHY KRISHNA JR, MD [facility] [address] [place] [address] 01/01/2025 09:07:39 01/05/2025 10:47:00 Health Concerns Section Related Observation LastModified by Organization Detai ls LastModified Time None Recorded Concern Status LastModified by Organization Details LastModified Time None Recorded Payers Encounter Date Sequence Insurance Name Policy Number Policy Bahena Covered Member ID Bahena Member ID Guarantor Name 01/01/2025 1 [place] [id number] Chris Clay [id number] Chris Williamson Notes Date Note Type Note Provider Name and Address Organization Details Recorded Time 01/01/2025 text/html He underwent laparoscopic cholecystectomy on 12/12. Pathology showed chronic cholecystitis. He has underlying GERD and takes omeprazole. He has some worsening of his nausea early after the surgery but it has improved. He states when he thinks about food he has some nausea but he can eat an [employer] sandwich without problems. He has excellent healing. I told him it may take a month for his body to adjust to not having a gallbladder. He can follow-up as needed. TIMOTHY KRISHNA JR, MD [address] [place] [address], [phone], [facility] 01/01/2025 09:30:26
--- OUTSIDE RECORDS SUMMARY | 2025-02-12 16:49 | XMS_ITS | Data Portability ---
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 Patient Instructions Encounter Date Encounter Id Patient Instructions Last Modified By Organization Details Last Modified Time 10/13/2024 [id number] gastroesophageal reflux disease (GERD): care instructions Not available 10/13/2024 10:14:02 Body Mass Index: Care Instructions-LC Not available 10/13/2024 10:14:02 Reason for Referral None Reported. Results Created Date Observation Date Name Description Value Unit Range Abnormal Flag Note LastModifiedBy Organization Detail LastModifiedTime 10/14/1910/13/2024 COMPL ETE BLOOD COUNT white blood cells 6.0 10*3/ uL 3.8-10 .8 normal Not Available [facility] [address] [place] [address], [address], 10/13/2024 10:05:14 10/14/19 25 10/13/2024 COMPL ETE BLOOD COUNT red blood cells 5.13 10*6/ uL 4.20-5 .80 normal Not Available [facility] [address] [place] [address], [address], 10/13/2024 10:05:14 10/14/19 25 10/13/2024 COMPL ETE BLOOD COUNT hemoglobin 16.3 g/dL 14.0-1 8.0 normal Not Available [facility] [address] [place] [address], [address], 10/13/2024 10:05:14 10/14/19 25 10/13/2024 COMPL ETE BLOOD COUNT hematocrit 46.0 % 40.0-5 2.0 normal Not Available [facility] [address] [place] [address], [address], 10/13/2024 10:05:14 10/14/19 25 10/13/2024 COMPL ETE BLOOD COUNT MCV 90 fL 80-100 normal Not Available [facility] [address] [place] [address], [address], 10/13/2024 10:05:14 10/14/19 25 10/13/2024 COMPL ETE BLOOD COUNT MCH 32 pg 26-35 normal Not Available [facility] [address] [place] [address], [address], 10/13/2024 10:05:14 10/14/19 25 10/13/2024 COMPL ETE BLOOD COUNT MCHC 35 g/dL 32-36 normal Not Available [facility] [address] [place] [address], [address], 10/13/2024 10:05:14 10/14/19 25 10/13/2024 COMPL ETE BLOOD COUNT RDW 13.5 % 11.0-1 5.0 normal Not Available [facility] [address] [place] [address], [address], 10/13/2024 10:05:14 10/14/19 25 10/13/2024 COMPL ETE BLOOD COUNT MPV 9.0 fL 6.2-10 .5 normal Not Available [facility] [address] [place] [address], [address], 10/13/2024 10:05:14 10/14/19 25 10/13/2024 COMPL ETE BLOOD COUNT platelet count 216 10*3/ uL 150-40 0 normal Not Available [facility] [address] [place] [address], [address], 10/13/2024 10:05:14 10/14/19 25 10/13/2024 COMPL ETE BLOOD COUNT neutrophil,a bsolute 2.5 10*3/ uL 1.6-8. 4 normal Not Available [facility] [address] [place] [address], [address], 10/13/2024 10:05:14 10/14/19 25 10/13/2024 COMPL ETE BLOOD COUNT lymphocyte,a bsolute 2.4 10*3/ uL 0.4-5. 1 normal Not Available [facility] [address] [place] [address], [address], 10/13/2024 10:05:14 10/14/19 25 10/13/2024 COMPL ETE BLOOD COUNT monocyte,abs olute 0.9 10*3/ uL 0.0-1. 2 normal Not Available [facility] [address] [place] [address], [address], 10/13/2024 10:05:14 10/14/19 25 10/13/2024 COMPL ETE BLOOD COUNT eosinophil,a bsolute 0.1 10*3/ uL 0.0-0. 8 normal Not Available [facility] [address] [place] [address], [address], 10/13/2024 10:05:14 10/14/19 25 10/13/2024 COMPL ETE BLOOD COUNT basophil,abs olute 0.0 10*3/ uL 0.0-0. 3 normal Not Available [facility] [address] [place] [address], [address], 10/13/2024 10:05:14 10/14/19 25 10/13/2024 COMPL ETE BLOOD COUNT % neutrophils 42.5 % 42.0-7 8.0 normal Not Available [facility] [address] [place] [address], [address], 10/13/2024 10:05:14 10/14/19 25 10/13/2024 COMPL ETE BLOOD COUNT % lymphocytes 40.5 % 11.0-4 7.0 normal Not Available [facility] [address] [place] [address], [address], 10/13/2024 10:05:14 10/14/19 25 10/13/2024 COMPL ETE BLOOD COUNT % monocytes 14.4 % 0.0-11 .0 high Not Available [facility] [address] [place] [address], [address], 10/13/2024 10:05:14 10/14/19 25 10/13/2024 COMPL ETE BLOOD COUNT % eosinophils 2.1 % 0.0-7. 0 normal Not Available [facility] [address] [place] [address], [address], 10/13/2024 10:05:14 10/14/19 25 10/13/2024 COMPL ETE BLOOD COUNT % basophils 0.5 % 0.0-3. 0 normal Not Available [facility] [address] [place] [address], [address], 10/13/2024 10:05:14 10/14/19 25 10/13/2024 COMPL ETE BLOOD COUNT nucleated red cells 0.0 % 0.0-0. 9 normal Not Available [facility] [address] [place] [address], [address], 10/13/2024 10:05:14 10/14/19 25 10/13/2024 COMPL ETE BLOOD COUNT nucleated RBCs, absolute 0.00 10*3/ uL not estab. normal Not Available [facility] [address] [place] [address], [address], 10/13/2024 10:05:14 10/14/19 25 10/13/2024 GLYCO HEMOG LOBIN A1C glyco HGB A1C 5.6 % 0.0-5. 6 normal Not Available [facility] [address] [place] [address], [address], 10/13/2024 10:11:11 10/14/19 25 10/13/2024 GLYCO HEMOG LOBIN A1C estimated avg. glucose 114 mg/dL _(lisa c) normal A1c value s betwe en 5.7% to 6.4% indic ate predi abete s. Resul ts 6.5% or great er is diagn ostic of diabe alanis. Ameri can Diabe alanis Assoc iatio n (diab etes. org) Not Available [facility] [address] [place] [address], [address], 10/13/2024 10:11:11 10/14/19 25 10/13/2024 LIPID PROFI LE HDL cholesterol 27 mg/dL 40-242 low Not Available [facility] [address] [place] [address], [address], 10/13/2024 10:31:33 10/14/19 25 10/13/2024 LIPID PROFI LE triglyceride s 132 mg/dL 0-149 normal TRIGL YCERI DE RANGE S JAZZY L: < 150 BORDE RLINE HIGH: 150 - 199 HIGH: 200 - 499 VERY HIGH: > OR = 500 Not Available [facility] [address] [place], [address], 10/13/2024 10:31:33 10/14/19 25 10/13/2024 LIPID PROFI LE cholesterol 147 mg/dL 0-199 normal FELECIA STERO L (TOTA L) RANGE S NORMAN ABLE: < 200 BORDE RLINE : 200 - 239 HIGHE R RISK: > 239 Not Available [facility] [address] [place] [address], [address], 10/13/2024 10:31:33 10/14/19 25 10/13/2024 LIPID PROFI LE LDL cholesterol 94 mg/dL _(lisa c) 0-99 normal LDL FELECIA STERO L RANGE S OPTIM AL: < 100 NEAR/ ABOVE OPTIM AL: 100 - 129 BORDE RLINE HIGH: 130 - 159 HIGH: 160 - 189 VERY HIGH: > OR = 190 Not Available [facility] [address] [place] [address], [address], 10/13/2024 10:31:33 10/14/19 25 10/13/2024 LIPID PROFI LE chol/HDL ratio (calc) 5.4 mg/dL normal NO JAZZY L RANGE ESTAB LISHE D FOR FELECIA STERO L/HDL RATIO (CALC ULATE D). Not Available [facility] [address] [place] [address], [address], 10/13/2024 10:31:33 10/14/19 25 10/13/2024 LIPID PROFI LE LDL, direct 105 0-99 high Not Available [facility] [address] [place] [address], [address], 10/13/2024 10:31:33 10/14/19 25 10/13/2024 COMP. METAB OLIC PANEL glucose 93 mg/dL 74-100 normal Not Available [facility] [address] [place] [address], [address], 10/13/2024 10:31:35 10/14/19 25 10/13/2024 COMP. METAB OLIC PANEL blood urea nitrogen 13 mg/dL 6-20 normal Not Available [facility] [address] [place] [address], [address], 10/13/2024 10:31:35 10/14/19 25 10/13/2024 COMP. METAB OLIC PANEL creatinine 1.05 mg/dL 0.70-1 .20 normal Not Available [facility] [address] [place] [address], [address], 10/13/2024 10:31:35 10/14/19 25 10/13/2024 COMP. METAB OLIC PANEL BUN/creatini ne ratio 12 (calc ) 10-20 normal Not Available [facility] [address] [place] [address], [address], 10/13/2024 10:31:35 10/14/19 25 10/13/2024 COMP. METAB OLIC PANEL sodium 138 mmol/ L 136-14 5 normal Not Available [facility] [address] [place] [address], [address], 10/13/2024 10:31:35 10/14/19 25 10/13/2024 COMP. METAB OLIC PANEL potassium 3.9 mmol/ L 3.4-5. 0 normal Not Available [facility] [address] [place] [address], [address], 10/13/2024 10:31:35 10/14/19 25 10/13/2024 COMP. METAB OLIC PANEL chloride 104 mmol/ L 98-107 normal Not Available [facility] [address] [place] [address], [address], 10/13/2024 10:31:35 10/14/19 25 10/13/2024 COMP. METAB OLIC PANEL carbon dioxide 22 mmol/ L 22-31 normal Not Available [facility] [address] [place] [address], [address], 10/13/2024 10:31:35 10/14/19 25 10/13/2024 COMP. METAB OLIC PANEL anion gap 12 (calc ) 7-25 normal Not Available [facility] [address] [place] [address], [address], 10/13/2024 10:31:35 10/14/19 25 10/13/2024 COMP. METAB OLIC PANEL calcium 9.4 mg/dL 8.6-10 .2 normal Not Available [facility] [address] [place] [address], [address], 10/13/2024 10:31:35 10/14/19 25 10/13/2024 COMP. METAB OLIC PANEL total protein 6.6 g/dL 6.4-8. 3 normal Not Available [facility] [address] [place] [address], [address], 10/13/2024 10:31:35 10/14/19 25 10/13/2024 COMP. METAB OLIC PANEL albumin 4.2 g/dL 3.5-5. 2 normal Not Available [facility] [address] [place] [address], [address], 10/13/2024 10:31:35 10/14/19 25 10/13/2024 COMP. METAB OLIC PANEL globulin 2.4 1.5-4. 5 normal Not Available [facility] [address] [place] [address], [address], 10/13/2024 10:31:35 10/14/19 25 10/13/2024 COMP. METAB OLIC PANEL albumin/glob ulin ratio 1.8 (calc ) 1.1-2. 5 normal Not Available [facility] [address] [place] [address], [address], 10/13/2024 10:31:35 10/14/19 25 10/13/2024 COMP. METAB OLIC PANEL bilirubin, total 0.7 mg/dL 0.1-1. 2 normal Not Available [facility] [address] [place] [address], [address], 10/13/2024 10:31:35 10/14/19 25 10/13/2024 COMP. METAB OLIC PANEL alkaline phosphatase 109 U/L 40-129 normal Not Available [facility] [address] [place] [address], [address], 10/13/2024 10:31:35 10/14/19 25 10/13/2024 COMP. METAB OLIC PANEL AST 27 U/L 0-40 normal Not Available [facility] [address] [place] [address], [address], 10/13/2024 10:31:35 10/14/19 25 10/13/2024 COMP. METAB OLIC PANEL ALT 33 U/L 0-41 normal Not Available [facility] [address] [place], [address], 10/13/2024 10:31:35 10/14/19 25 10/13/2024 COMP. METAB OLIC PANEL eGFR 87 >= 60 normal NOT E New calcu latio n for GFR (CKD- EPI 2020) is formu lated witho ut race adjus tment facto rs at the recom menda tion of the [employer] [facility] [employer] ty of Nephr ology . This calcu latio n has not been valid ated in pregn ant women . For pedia tric patie nts refer to https ://ariel guillory.melanie rg/pr maxine kaplan s/KDO QI/gf r_cal culat orPed Not Available [facility] [address] [place], [address], 10/13/2024 10:31:35 10/14/19 25 10/13/2024 VITAM IN D 25-OH vitamin D 25-oh, total 42 NG/mL >=30 NG/mL normal Not Available [facility] [address] [place], [address], 10/13/2024 10:46:27 10/14/19 25 10/13/2024 PROST ATE SPECI FIC AG prostate specific Ag 0.661 NG/mL 0.000- 3.100 normal This test was perfo rmed using Dasia e801 Elect dasia milum inesc ent metho d. The test metho d is based on WHO-s tanda rdize d calib ratio n. Value s obtai kieko from diffe rent assay metho ds or manuf actur ers may not be marley rable . Not Available [facility] [address] [place], [address], 10/13/2024 10:47:09 10/14/19 25 10/13/2024 TSH WITH REFLE X FT4 TSH with reflex FT4 2.530 u[IU] /mL 0.270- 4.200 normal Not Available [facility] [address] [place] [address], [address], 10/13/2024 10:47:11 10/14/19 25 10/13/2024 TESTO STERO NE, TOTAL testosterone , total 679 NG/dL 249-83 6 normal Refer ence range is for age 20-49 years . Not Available [facility] [address] [place] [address], [address], 10/13/2024 10:47:12 10/14/19 25 10/17/2024 TESTO STERO NE, FREE testosterone , free 57.1 pg/mL 46.0-2 24.0 normal MDF med fusio n [address] [facility] [address] [facility] [address] [phone] [facility] Jose Morley MD, PhD Not Available [facility] [address] [place] [address], [address], 10/17/2024 14:04:09 12/12/19 25 12/11/2024 COMPL ETE BLOOD COUNT white blood cells 4.5 10*3/ uL 3.8-10 .8 normal Not Available [facility] [address] [place] [address], [address], 12/11/2024 11:52:23 12/12/19 25 12/11/2024 COMPL ETE BLOOD COUNT red blood cells 5.16 10*6/ uL 4.20-5 .80 normal Not Available [facility] [address] [place] [address], [address], 12/11/2024 11:52:23 12/12/19 25 12/11/2024 COMPL ETE BLOOD COUNT hemoglobin 16.1 g/dL 14.0-1 8.0 normal Not Available [facility] [address] [place] [address], [address], 12/11/2024 11:52:23 12/12/1912/11/2024 COMPL ETE BLOOD COUNT hematocrit 46.5 % 40.0-5 2.0 normal Not Available [facility] [address] [place] [address], [address], 12/11/2024 11:52:23 12/12/19 25 12/11/2024 COMPL ETE BLOOD COUNT MCV 90 fL 80-100 normal Not Available [facility] [address] [place] [address], [address], 12/11/2024 11:52:23 12/12/1912/11/2024 COMPL ETE BLOOD COUNT MCH 31 pg 26-35 normal Not Available [facility] [address] [place] [address], [address], 12/11/2024 11:52:23 12/12/1912/11/2024 COMPL ETE BLOOD COUNT MCHC 35 g/dL 32-36 normal Not Available [facility] [address] [place] [address], [address], 12/11/2024 11:52:23 12/12/19 25 12/11/2024 COMPL ETE BLOOD COUNT RDW 13.0 % 11.0-1 5.0 normal Not Available [facility] [address] [place] [address], [address], 12/11/2024 11:52:23 12/12/19 25 12/11/2024 COMPL ETE BLOOD COUNT MPV 8.8 fL 6.2-10 .5 normal Not Available [facility] [address] [place] [address], [address], 12/11/2024 11:52:23 12/12/19 25 12/11/2024 COMPL ETE BLOOD COUNT platelet count 221 10*3/ uL 150-40 0 normal Not Available [facility] [address] [place] [address], [address], 12/11/2024 11:52:23 12/12/1912/11/2024 COMPL ETE BLOOD COUNT neutrophil,a bsolute 1.9 10*3/ uL 1.6-8. 4 normal Not Available [facility] [address] [place] [address], [address], 12/11/2024 11:52:23 12/12/1912/11/2024 COMPL ETE BLOOD COUNT lymphocyte,a bsolute 1.7 10*3/ uL 0.4-5. 1 normal Not Available [facility] [address] [place] [address], [address], 12/11/2024 11:52:23 12/12/1912/11/2024 COMPL ETE BLOOD COUNT monocyte,abs olute 0.8 10*3/ uL 0.0-1. 2 normal Not Available [facility] [address] [place] [address], [address], 12/11/2024 11:52:23 12/12/1912/11/2024 COMPL ETE BLOOD COUNT eosinophil,a bsolute 0.1 10*3/ uL 0.0-0. 8 normal Not Available [facility] [address] [place] [address], [address], 12/11/2024 11:52:23 12/12/1912/11/2024 COMPL ETE BLOOD COUNT basophil,abs olute 0.0 10*3/ uL 0.0-0. 3 normal Not Available [facility] [address] [place] [address], [address], 12/11/2024 11:52:23 12/12/1912/11/2024 COMPL ETE BLOOD COUNT % neutrophils 42.4 % 42.0-7 8.0 normal Not Available [facility] [address] [place] [address], [address], 12/11/2024 11:52:23 12/12/19 25 12/11/2024 COMPL ETE BLOOD COUNT % lymphocytes 36.9 % 11.0-4 7.0 normal Not Available [facility] [address] [place] [address], [address], 12/11/2024 11:52:23 12/12/19 25 12/11/2024 COMPL ETE BLOOD COUNT % monocytes 18.0 % 0.0-11 .0 high Not Available [facility] [address] [place] [address], [address], 12/11/2024 11:52:23 12/12/19 25 12/11/2024 COMPL ETE BLOOD COUNT % eosinophils 2.2 % 0.0-7. 0 normal Not Available [facility] [address] [place] [address], [address], 12/11/2024 11:52:23 12/12/19 25 12/11/2024 COMPL ETE BLOOD COUNT % basophils 0.5 % 0.0-3. 0 normal Not Available [facility] [address] [place] [address], [address], 12/11/2024 11:52:23 12/12/19 25 12/11/2024 COMPL ETE BLOOD COUNT nucleated red cells 0.1 % 0.0-0. 9 normal Not Available [facility] [address] [place] [address], [address], 12/11/2024 11:52:23 12/12/19 25 12/11/2024 COMPL ETE BLOOD COUNT nucleated RBCs, absolute 0.01 10*3/ uL not estab. normal Not Available [facility] [address] [place] [address], [address], 12/11/2024 11:52:23 12/12/19 25 12/11/2024 UA MICRO SCOPI C, CULTU RE IF INDIC ATED mucus, urine Trace /lpf not establ ished normal Not Available [facility] [address] [place], [address], 12/11/2024 11:55:12/12/19 25 12/11/2024 UA MICRO SCOPI C, CULTU RE IF INDIC ATED WBC, urine Rare 0-5/hp f normal Not Available [facility] [address] [place] [address], [address], 12/11/2024 11:55:09 12/12/19 25 12/11/2024 UA MICRO SCOPI C, CULTU RE IF INDIC ATED RBC, urine 3-10 0-2/hp f abnormal Not Available [facility] [address] [place] [address], [address], 12/11/2024 11:55:12/12/19 25 12/11/2024 UA MICRO SCOPI C, CULTU RE IF INDIC ATED squamous epi. cells 0-5 0-5/hp f normal Not Available [facility] [address] [place] [address], [address], 12/11/2024 11:55:12/12/19 25 12/11/2024 UA MICRO SCOPI C, CULTU RE IF INDIC ATED reflex culture see below normal UA resul ts do not meet cultu re crite yazmin. Not Available [facility] [address] [place] [address], [address], 12/11/2024 11:55:12/13/1912/12/2024 SURGI LISA surgical SEE BELOW [...] FELECIA CYSTI TIS Gross Descr iptio n: Patie nt name and date of verif ied. Recei nydia in forma troy label ed with the maya nt's name and desig nated as gall [...] resul t(s) are as noted above . UZLY GALVEZ Cele FARIAS IEL-P MD ANGELIQUE Ruth d Out Date: 12/15 09:00 Page 1 of 1 Not Available [facility] [address] [place] [address], [address], 12/15/2024 09:01:13 11/05/19 CT, angio gram, abdom en + pelvi s, w/ contr ast No observ ation record ed. Not Available 2024 09:29:30 11/29/19 25 11/28/2024 US, abdom en, limit ed [address] [address] Patitamie t Name: BOB guillory : [phone] Patien t Orderi ng Provid er: MARIANA DAVILA [...] Timothy Escamilla MD on 11/29/19 12:[address] Radiology [facility] [address] [place] [address], [address], 12/03/2024 14:09:45 Result Notes None recorded. Problems Name Problem SNOMED Code Status Onset Date Resolution Date Notes Provider Name and Address Organization Details Recorded Time Umbilical hernia 841897820 Active 2021 TIMOTHY KRISHNA JR, MD [address] [place] [address], [address], [facility] 2 15:03:19 Low back pain 961061815 Active 2021 TIMOTHY KRISHNA JR, MD [address] [place] [address], [address], [facility] 2 08:51:17 History of polyp of colon 690347285 Active 2023 MARIANA DAVILA, [employer] [address] [place] [address], [address], [facility] 4 17:54:08 Essential hypertension 50653752 Active 2023 MARIANA DAVILA APRN [address] [place], [address], [facility] 4 17:54:14 Gastroesophage al reflux disease without esophagitis 807308653 Active 2023 MARIANA DAVILA APRN [address] [place] [address], [address], [facility] 4 17:54:24 Right upper quadrant pain 584484799 Active 2024 TIMOTHY KRISHNA JR, MD [address] [place] [address], [address], [facility] 5 10:33:07 Irritable bowel syndrome 05102527 Active 2024 TIMOTHY KRISHNA JR, MD [address] [place] [address], [address], [facility] 5 10:33:20 Chronic cholecystitis 27328990 Active 2024 TIMOTHY KRISHNA JR, MD [address] [place] [address], [address], [facility] 5 10:40:00 Problem Notes Documentation Provider Name and Address Organization Details Recorded Time General Surgeon Consult Note : [facility] [address] [place] [phone], Steve (Legal name: Bob Williamson) (id #[id number], : 1975) [facility] GENERAL SURGERY [address] [place] [address] Date: 11/06/2024RE: Bob Clay, : 1975, PT ID #[id number] Davila APRN, I would like to thank you for referring Bob Williamson to our practice for consultation and evaluation. I have enclosed a copy of the office evaluation for your records. Sincerely, Electronically Signed by: TIMOTHY KRISHNA JR, MDEncounter Reason/DateTransition of Care Encounter Patient complains after meals within 10-15 minutes he has to run to the bathroom to have BM. He states choice of food does not matter. He states this has started about one month ago. Patient complains mild discomfort in RUQ. 11/06/2024 - 09:40AM - GENERAL SURGERY SB History of Present Illness11/06/2024 I am seeing Mr. Williamson for evaluation of severe right upper quadrant pain/gallbladder disease I had performed laparoscopic repair of umbilical hernia on him December [address] mesh. He had no problems after this He had colonoscopy 2022 showing diverticulosis sigmoid colon and tubular adenoma sigmoid colon He had first time ever severe episode of right lower chest/right upper quadrant pain 3 weeks ago. He went to [facility]. CTA of the chest showed no pulmonary embolus. CBC and CMP were normal. ER physician felt he had biliary colic. He denies any severe pain since then. He does have some constant low-grade right upper quadrant pain/pressure. He denies history of jaundice, pancreatitis or peptic ulcer disease He has GERD. If he misses an omeprazole dose he has heartburn. He lost 35 pounds since March with not eating after 6 PM. He walks 9 miles a day at work. He was going to take Mounjaro but it was too expensive and he did not start it. He denies blood in his stool. He has daily bowel movements. He moves his bowels 20 minutes after a meal 4 times a day.Review of Systems Patient reportsabdominal pain and GERDbut reports not vomiting blood. He reportsfatigue. He reports no fever and no significant weight gain. He reports no vision change. He reports no frequent nosebleeds. He reports no chest pain, no shortness of breath when walking, and no palpitations. He reports no shortness of breath and no coughing up blood. He reports no difficulty urinating and no hematuria. He reports no jaundice and no rashes. He reports no loss of consciousness and no seizures. He reports no depression. He reports no swollen glands and no excessive bleeding. ROS as noted in the HPIPhysical ExamConstitutional:General Appearance: healthy-appearing, well-nourished, andoverweight. Level of [...] no rash or jaundice. Back:Thoracolumbar Appearance: normal curvature.Procedure DocumentationNone recordedAssessment/Plan1. Gastroesophageal reflux disease without esophagitis- Onset: 06/18/2023 -On omeprazole [id number]: Gastro-esophageal reflux disease without esophagitis 2. Umbilical hernia- Onset: 01/05/2022 -Status post laparoscopic repair 2021 with no complication. 6 inch Ventralight mesh used.K42.9: Umbilical hernia without obstruction or gangrene 3.Irritable bowel syndrome, unspecified- Onset: 11/06/2024Start YikyxaC16.9: Irritable bowel syndrome, unspecified 4.Chronic cholecystitis- Onset: 11/06/2024Status post attack on 10/18. Await ultrasound result. Will come to laparoscopic cholecystectomy. I explained to him there is 3% chance of severe complication.K81.1: Chronic cholecystitis Return to Office ULTRASOUND for ULTRASOUND at RADIOLOGY SB on 11/28/2024 at 11:30 AM to see MARIANA DAVILA APRN for PHYSICAL EXAM at INTERNAL MEDICINE SB on or around 04/15/2025 to see ASIYA VEGA MD at GASTRO SB on or around 06/30/2025 MARIANA DAVILA APRN [address] [place], [address], [facility] 11/06/2024 11:02:21 General Surgeon Consult Note : [facility] [address] [facility] [id number], Steve (Legal name: Bob Williamson) (id #[id number], : 1975) [facility] [address] [place] [address] Encounter Summary - Progress Note Date Printed: [...] received this fax in error, please visit [email or web address] in [email or web address] ax to notify the sender and confirm that the information will be destroyed. If you do not have internet access, please call to notify the sender and confirm that the information will be destroyed. Thank you for your attention and cooperation. [ID:[id number]] Patient Bob Williamson (48yo, M) #[id number] 1975 Patient Demographics: Address [address] [place] [address] Encounter Notes: Encounter Reason/DateNone recorded 12/04/2024 - [...] pain 3 weeks ago. He went to [facility]. CTA of the chest showed no pulmonary [...] L arm12/04/2024 02:56 pm Pulse: 85 bpm [email or web address]/04/2024 02:56 pm Results/Interpretations Physical ExamConstitutional:General Appearance: healthy-appearing, [...] disease without esophagitis- Onset: 06/18/2023 -On omeprazole pqzigW66.9: Gastro-esophageal reflux disease without esophagitis 2. Umbilical hernia- Onset: 01/05/2022 -Status post laparoscopic repair 2021 with no complication. 6 inch Ventralight mesh used.K42.9: Umbilical hernia without obstruction or gangrene 3.Irritable bowel syndrome, unspecified- Onset: 11/06/2024Start PaihjzP57.9: Irritable bowel syndrome, unspecified 4.Chronic cholecystitis- Onset: [...] to this for at least 3 weeks sdigsxH52.1: Chronic cholecystitis Return to Office to see [...] intranasal route for 30 days.09/26/23 prescribed MARIANA DAVILA APRN losartan 25 mg tabletTake 1 tablet(s) [...] Vaccines Vaccine Type Date Amt. Route Site [facility] Lot # [id number]. Exp. Date VIS VIS Given Pelletizer Diphtheria, Tetanus, Pertussis DTaP-IPV 03/26/15 Polio DTaP-IPV 03/26/15 decline COVID and Flu Vaccine 03/13/22 Electronically Signed by: TIMOTHY KRISHNA JR, MD MARIANA DAVILA, GREGORY [address] [place] [address], [phone], [facility] 12/05/2024 08:13:25 General Surgeon Consult Note : [address] [address]YSALS, Steve (Legal name: Bob Williamson) (id #[id number], : 1975) [facility] GENERAL SURGERY [address] [place] [address] Date: 01/01/2025RE: Bob Williamson, : 1975, PT ID #[id number] Davila APRN / [facility], I would like to thank you for referring Bob Williamson to our practice for consultation and evaluation. I have enclosed a copy of the office evaluation for your records. Sincerely, Electronically Signed by: TIMOTHY KRISHNA JR, MDEncounter Reason/Date Pt states he has been doing [...] or around 06/30/2025 MARIANA DAVILA APRN [address] [place], [address], [facility] 01/01/2025 12:46:43 Procedures Surgical History Date Name Laterality Status Provider Name and Address Organization Details Recorded Time 5 Skin Tag Removal completed Mary Ann Morris [facility] 05/16/2024 09:06:31 4 Destruction BN Lesions completed Clementine Pickens [facility] 09/21/2023 09:10:32 4 Skin Tag Removal completed MARIANA DAVILA, GREGORY [address] [place], [address], [facility] 06/18/2023 17:59:37 5 vasectomy completed Eileen Napier [facility] 10/21/2021 11:54:31 open reduction of dislocation of ankle completed [facility] 01/05/2022 14:11:34 hernia repair completed [facility] 01/31/2022 08:22:16 Imaging Results None recorded. [...] propionate 50 mcg/actuat ion nasal spray,susp ension Vidor 1 spray every day by intranas al [...] (BMI) Body weight Heart rate Oxygen saturation Systolic And Diastolic Provider Name and Address Organization Details Last Updated DateTime 182.88 cm 31.2 kg/m2 109464. 96 g 62 /min 95 % 112/74 mm[Hg] Ramila Ballmarko [facility] 09:40:19 Date Recorded Body height Body mass index (BMI) Body weight Heart rate Systolic And Diastolic Provider Name and Address Organization Details Last Updated DateTime 11/06/2024 182.88 cm 31.6 kg/m2 706087.0 2 g 67 /min 143/85 mm[Hg] Ever Garcia [facility] 11/06/2024 09:38:18 Date Recorded Body height Body mass index (BMI) Body weight Heart rate Systolic And Diastolic Provider Name and Address Organization Details Last Updated DateTime 12/04/2024 182.88 cm 31.1 kg/m2 600761.6 5 g 85 /min 139/72 mm[Hg] Ela Duque [facility] 12/04/2024 14:56:45 Date Recorded Body height Body mass index (BMI) Body weight Heart rate Systolic And Diastolic Provider Name and Address Organization Details Last Updated DateTime 01/01/2025 182.88 cm 31 kg/m2 280760.1 6 g 86 /min 135/89 mm[Hg] Dior Eddy [facility] 01/01/2025 09:14:32 Social History Question Answer Notes LastModified by Organizat ion Details LastModified Time Tobacco Smoking Status Never Smoker Eileen Napier [facility] 10/21/2021 11:55:36 What Is Your Level Of Caffeine Consumption? Moderate Information not available 11/05/2024 What Was The Date Of Your Most Recent Tobacco Screening? 10/13/2024 [email or web address] Information not available 10/13/2024 Do You Have Smoke And Carbon Monoxide Detectors In Your Home? Yes [email or web address] Information not available 10/21/2021 Are There Any Smokers In Your House? No [email or web address] Information not available 10/21/2021 Do You Use Sunscreen Routinely? Yes [email or web address] Information not available 10/21/2021 Has Tobacco Cessation Counseling Been Provided? No [email or web address] Information not available 10/21/2021 Sex: Male Functional Status Question Answer Note LastModified by Organizat ion Details LastModified Time Do you use any illicit or recreational drugs? No Information not available 10/21/2021 Do you or have you ever used any other forms of tobacco or nicotine? No [email or web address] Information not available 10/21/2021 What is your [...] Polyps Y Liver Disease N Heart Attack (AK) N Heart Disease N Hypertension Y Kidney Disease N Immunizations Vaccine Type Date Status Note Provider Nam e and Address Organization Details Recorded Time DTaP-IPV 03/26/2015 completed Eileen Napier [facility] 10/21/2021 11:53:27 Past Encounters Encounter ID Performer Location Encounter Start Date Encounter Closed Date Diagnosis/Indication Diagnosis SNOMED-CT Code Diagnosis ICD10 Code Diagnosis IMO Codes Diagnosis Note [id number] MARIANA DAVILA APRN INTERNAL [facility]INE [address] [address] 10/21/2021 11:44:20 10/25/2021 11:03:51 Adult health examination 681431936 Z00.00 Testostero ne level below reference range 396494336 R79.89 Patient evaluated for testicular problems. Patient educated on treatment and goals of therapy. Discussed follow up and orders indicated below. Essential hypertension 72518283 I10 Patients blood pressure is well controlled on present medical therapy. He is tolerating , without difficulty the current medication s. I have made no changes to our current regimen. [id number] MARIANA DAVILA APRN INTERNAL MEDICINE [address] [address] 12/21/2021 08:09:15 12/21/2021 09:36:21 Adult health examination 487116811 Z00.00 Umbilical hernia 3718527 07 K42.9 + painDiscus sed CT, wearing abdominal binder when up and movingNo heavy lifting, strainingW ill ref to surgery Thoracic back pain 81831 8004 M54.6 See above plan [id number] TIMOTHY KRISHNA JR, MD GENERAL SURGERY [address] [address] 01/05/2022 13:52:15 01/10/2022 12:33:15 Umbilical hernia 104088921 K42.9 Symptomati c umbilical hernia. I explained [...] these continue he will need GI work-up. [id number] TIMOTHY KRISHNA JR, MD SURGERY SCHEDULE [address] [place] [address] 01/20/2022 08:09:12 01/20/2022 08:11:14 [id number] TIMOTHY KRISHNA JR, MD GENERAL SURGERY [address] [address] 01/31/2022 08:09:05 01/31/2022 15:37:09 Umbilical hernia 777690495 K42.9 Low back pain 850380654 M54.50 Postoperative pain 61701 9007 G89.18 [id number] MARIANA DAVILA APRN INTERNAL MEDICINE [address] [address] 03/13/2022 13:39:43 03/13/2022 16:28:14 Essential hypertension 29798631 I10 Patients blood pressure is well controlled on present medical therapy. He is tolerating , without difficulty the current medication s. I have made no changes to our current regimen. History of repair of umbilical hernia 734161391 Z98.890 cleared to return to work [id number] MARIANA DAVILA APRN INTERNAL MEDICINE SB [address] [place] [address] 05/01/2022 08:20:15 05/01/2022 14:32:56 Testosterone level below reference range 942135611 R79.89 Patient evaluated for testicular problems. Patient educated on treatment and goals of therapy. Discussed follow up and orders indicated below. Central obesity 89445319 1 E66.8 Right lowe r quadrant pain 567704963 R10.31 r/o appendicit is Essential hypertension 74219535 I10 Patients blood pressure is well controlled on present medical therapy. He is tolerating , without difficulty the current medication s. I have made no changes to our current regimen. Screening for malignant neoplasm of colon 410539005 Z12.11 Due [id number] ASIYA VEGA MD SURGERY SCHEDULE [address] [place], [place] [address] 06/30/2022 10:47:16 06/30/2022 10:49:20 [id number] MARIANA DAVILA APRN INTERNAL MEDICINE SB [address] [place] [address] 09/18/2022 10:11:08 09/19/2022 04:46:15 Essential hypertension 04965977 I10 Patients blood pressure is well controlled on present medical therapy. He is tolerating , without difficulty the current medication s. I have made no changes to our current regimen. Testostero ne level below reference range 863774800 R79.89 Patient evaluated for testicular problems. Patient educated on treatment and goals of therapy. Discussed follow up and orders indicated below. Central obesity 31280616 1 E66.8 History of iron deficiency 628069811 Z86.39 Body mass index 30+ - obesity 577736956 Z68.30 Benefits vs risks and side effects discussed with patient. Thoracic radiculopathy 86591800 M54.14 Primary er ectile dysfunction 368546668 N52.9 [id number] MARIANA DAVILA APRN INTERNAL MEDICINE SB [address] [place] [address] 06/15/2023 07:53:29 06/21/2023 15:38:43 Adult health examination 635591152 Z00.00 Colon cancer screenin06/30/22>> follow up 3 yearsPSA:p rostate specific Ag, 0.749 10/21/21Smo ker: non - 1 cigars a yearAAA: n/aLung cancer screen: n/a, non smokerdecl ined vaccines at the clinic Testostero ne level below reference range 129172909 R79.89 Patient evaluated for testicular problems.P atient educated on treatment and goals of therapy. Discussed follow up and orders indicated below. His labwork thus far has not been indicative of low T, and therefore we cannot Rx. Essential hypertension 51465229 I10 Patients blood pressure is well controlled on present medical therapy. He is tolerating , without difficulty the current medication s. I have made no changes to our current regimen. History of polyp of colon 648197475 Z86.010 06/30/22, colonoscop y - follow up 3 years Skin lesion 16429400 L98 .9 multiple brown and johnson lesion across backStates told in past had [place] Multiple skin tags 30983 7009 L91.8 neck and bilateral arm pitsSome destroyed today with both cryo and snipping todayrefer to derm Right uppe r quadrant pain 896557242 R10.11 occurs after he eats and lasts for about an hourWorrie d it may be gallbladde rNo referred shoulder painNo TTPAdd pepcid in addition to omeprazole . Discussed possible RUQ US if symptoms persist or worsen. CT A/P 2021 showed no gallstones . Pain of le ft shoulder joint 7541019598 5413324 M25.512 Repetitive motions at workLikely multifacto rial - he carrys heavy pieces of metal in his L arm, agains his chest many days a week at work.Discu ssed ergonomics .He denies any numbness, tingling or loss of sensation. Follow up with no improvemen t Varicose v eins of lower extremity 37143450 I83.91 R poplitealN ontenderEn couraged compressio ns Gastroesop hageal reflux disease without esophagitis 127555928 K21.9 Omeprazole 40mg QD.Add pepcid and follow up with no improvemen t.Discusse d possible EGDWeight loss would helpHOB >90 at least 2 hours postprandi al. [id number] EVER GREENE APRN [facility] [address] [place] [address] 09/21/2023 08:50:07 09/21/2023 10:33:56 Solar lentiginosis 556831545 L81.4 Benign reassuranc e Raised go orrheic keratosis 3871088463 13641 L82.1 Benign reassuranc e Hemangioma 701965990 D18 .00 Benign reassuranc e Multiple b enign melanocytic nevi 345950534 D22.9 Benign reassuranc eIf any lesions change, or if any other new or symptomati c lesions occur, patient understand s to return to the clinic for further evaluation Discussed sun precaution s; SPF 30+ Hemosideri n pigmentation of skin due to venous insufficiency 738627166 I87.2 Educated patient about diagnosisB enign - reassuranc erecommend ed compressio n socks when working to help with edema Multiple skin tags 30883 7009 L91.8 Benign reassuranc e Inflamed s eborrheic keratosis 355661000 L82.0 Education about diagnosist hen treated with LN x 2 per patient request - mid backpatien t tolerated wellwound care instructio n provided Tenderness of skin 87794 9000 R20.8 isks Psoriasis 7412606 L40.9 Chronicint ermittent flares on left elbow onlyMild todayExace rbation - no prior treatmentB SA < 10% itch 10Will try topical steroid for initial treatment - [...] ad vised about exposure to the sun 737949437 Z71.89 Patient was counseled on the risks of chronic sun exposure. Sun protective clothing and daily UV protection with over the counter broad-spec trum SPF 30+ on exposed areas recommende d, as well as, regular self-skin exams. Patient was encouraged to return to the clinic with any new, changing, or symptomati c lesions. [id number] MARIANA DAVILA APRN [facility] [address] [place] [address] 09/26/2023 07:55:43 09/27/2023 04:31:45 Cough 64163097 R05.9 likely post viral in nature + AR Body mass index 30+ - obesity 862795384 Z68.30 Benefits vs risks and side effects discussed with patient. Vitamin D deficiency 347 60015 E55.9 21 06/15/23, no med Essential hypertension 52013661 I10 Patients blood pressure is well controlled on present medical therapy. He is tolerating , without difficulty the current medication s. I have made no changes to our current regimen. Testostero ne level below reference range 544604087 R79.89 Patient evaluated for testicular problems.P atient educated on treatment and goals of therapy. Discussed follow up and orders indicated below. His labwork thus far has not been indicative of low T, and therefore we cannot Rx. History of polyp of colon 574641393 Z86.010 06/30/22, colonoscop y - follow up 3 years Gastroesop hageal reflux disease without esophagitis 569217994 K21.9 Omeprazole 40mg QD.>> not currently takingAdd pepcid and follow up with no improvemen t.Discusse d possible EGDWeight loss would helpHOB >90 at least 2 hours postprandi al. Seasonal a llergic rhinitis 498453323 J30.2 Start and follow up with no improvemen t [id number] [place] [address] [place] [address] 04/18/2024 09:54:18 04/24/2024 11:01:20 Body mass index 30+ - obesity 462160251 Z68.30 Benefits vs risks and side effects discussed with patient.32 .8 04/18/24 Vitamin D deficiency 347 48320 E55.9 21 06/15/23, no med Essential hypertension 60164016 I10 Patients blood pressure is well controlled on present medical therapy. He is tolerating , without difficulty the current medication s. I have made no changes to our current regimen. Testostero ne level below reference range 041164726 R79.89 Patient evaluated for testicular problems.P atient educated on treatment and goals of therapy. Discussed follow up and orders indicated below. His labwork thus far has not been indicative of low T, and therefore we cannot Rx. History of polyp of colon 405104566 Z86.0100 06/30/22, colonoscop y - follow up 3 years Gastroesop hageal reflux disease without esophagitis 837045156 K21.9 Omeprazole 40mg QD.>> not currently takingAdd pepcid and follow up with no improvemen t.Discusse d possible EGDWeight loss would helpHOB >90 at least 2 hours postprandi al. 04/18/24>> stable Adult heal th examination 080859342 Z00.00 Colon cancer screenin06/30/22>> follow up 3 yearsPSA:p rostate specific Ag, 0.749 10/21/21Smo ker: non - 1 cigars a yearAAA: n/aLung cancer screen: n/a, non smokerdecl ined vaccines at the clinic Prediabetes 585207390 R7 3.03 5.8>> 09/26/23 Right medi al elbow tendinopathy 3046155123 24718 M77.01 Follow up with no improvemen t Obstructiv e sleep apnea syndrome 35424195 G47.33 Unable to obtain records from [facility] - however this was >5 years ago.Discus sed this is likely the culprit of fatigue - as testo has always been WNL Screening for malignant neoplasm of prostate 081051908 Z12.5 [id number] BRENT CROWLEY-POP ESCOBAR MD PULMONARY [address] [facility], [address] [place] [address] 04/23/2024 08:42:53 04/23/2024 13:35:28 Excessive day and night-time sleepiness 344717171 G47.19 Patient's complaints and clinical presentati on [...] after nPAP therapy has been initiated Snoring 31517904 R06.83 [id number] EVER GREENE APRN [facility] [address] [place] [address] 05/16/2024 08:39:10 05/16/2024 10:26:18 Multiple skin tags 909790883 L91.8 Benign appearance ; reassuranc e and education providedpa inful and bothersome to patientEdu cation about diagnosisr emoved using gradle scissors and cautery; 15 inflamed skin tagspatien t tolerated wellSee procedure notewound care instructio n providedPo ssible out-of-poc ket costs were reviewed with patient; financial waiver signedfoll ow up as needed Tenderness of skin 03182 9000 R20.8 Irritated painful skin tags [id number] MARIANA DAVILA APRN [facility] [address] [place] [address] 10/13/2024 08:59:04 10/17/2024 15:10:10 Body mass index 30+ - obesity 022352393 Z68.30 Benefits vs risks and side effects discussed with patient.32 .8 04/18/257/2 04/19>> 31.2We will attempt again injectable pending labs. Vitamin D deficiency 347 86389 E55.9 21 06/15/23, no med Essential hypertension 06756604 I10 Patients blood pressure is well controlled on present medical therapy. He is tolerating , without difficulty the current medication s. I have made no changes to our current regimen. Testostero ne level below reference range 308249354 R79.89 Patient evaluated for testicular problems.P atient educated on treatment and goals of therapy. Discussed follow up and orders indicated below. His labwork thus far has not been indicative of low T, and therefore we cannot Rx. Gastroesop hageal reflux disease without esophagitis 226538760 K21.9 Omeprazole 40mg QD.>> not currently takingAdd pepcid and follow up with no improvemen t.Discusse d possible EGDWeight loss would helpHOB >90 at least 2 hours postprandi al. 04/18/24, 10/13/24>> stable Prediabetes 473638699 R7 3.03 5.8>> 09/26/23 Primary insomnia 8896772 F51.01 51080 Trial melatonin, has done trazodone, too sedating.R elated to daughter living on own as well Hyperlipidemia 81808149 E78.5 60836751 Recommende d statin 03/2024. He declinesWi ll attempt injectable for weight, CVD if prediabeti c today - discussed [id number] TIMOTHY KRISHNA JR, MD GENERAL SURGERY [address] [address] 11/06/2024 09:04:08 11/10/2024 16:45:11 Gastroesophageal reflux disease without esophagitis 350074290 K21.9 On omeprazole daily Umbilical hernia 7419074 07 K42.9 Status post laparoscop ic repair 2021 with no complicati on. 6 inch Ventraligh t mesh used. Irritable bowel syndrome 37045606 K58.9 4646573897 Start Bentyl Chronic cholecystitis 20 870210 K81.1 02248 Status post attack on 10/18. Await ultrasound result. Will come to laparoscop ic cholecyste ctomy. I explained to him there is 3% chance of severe complicati on. [id number] TIMOTHY KRISHNA JR, MD GENERAL SURGERY [address] [address] 12/04/2024 14:45:55 12/09/2024 15:28:50 Gastroesophageal reflux disease without esophagitis 352897237 K21.9 On omeprazole daily Umbilical hernia 5791263 07 K42.9 Status post laparoscop ic repair 2021 with no complicati on. 6 inch Ventraligh t mesh used. Irritable bowel syndrome 04168764 K58.9 1736185191 Start Bentyl Chronic cholecystitis 20 847980 K81.1 31017 Status post attack on 10/18. Ultrasound shows [...] this for at least 3 weeks postop [id number] TIMOTHY KRISHNA JR, MD SURGERY SCHEDULE [address] [place] [address] 12/12/2024 06:10:38 12/12/2024 06:13:12 [id number] TIMOTHY KRISHNA JR, MD GENERAL SURGERY SB [address] [place] [address] 01/01/2025 09:07:39 01/05/2025 10:47:00 Health Concerns Section Related Observation LastModified by Organization Detai ls LastModified Time None Recorded Concern Status LastModified by Organization Details LastModified Time None Recorded Advance Directives Directive None Recorded Payers Insurance Date Sequence Insurance Name Policy Number Policy Bahena Covered Member ID Bahena Member ID Guarantor Name 01/05/2025 1 [place] [id number] Bob Williamson [id number] Bob Williamson Notes Date Note Type Note Provider Name and Address Organization Details Recorded Time 10/13/2024 text/html Recheck He has a past medical history of hypertension, well controlled on losartan 25mg QD, as well as low testosterone. He had been previously getting testosterone from [facility]. His T was so high at some [...] too sleepy. No other concerns. MARIANA DAVILA, [employer] [address] [place], [address], [facility] 10/13/2024 10:50:53 11/06/2024 text/html ROS as noted in the HPI 11/06/2024 I am seeing Mr. Williamson for evaluation of severe right upper quadrant pain/gallbladder disease I had performed laparoscopic repair of umbilical hernia on him December 2021 using [address] mesh. He had no problems after this He had colonoscopy 2022 showing diverticulosis sigmoid colon and tubular adenoma sigmoid colon He had first time ever severe episode of right lower chest/right upper quadrant pain 3 weeks ago. He went to [facility]. CTA of the chest showed no pulmonary embolus. CBC and CMP were normal. ER physician felt he had biliary colic. He denies any severe pain since then. He does have some constant low-grade right upper quadrant pain/pressure. He denies history of jaundice, pancreatitis or peptic ulcer disease He has GERD. If he misses an omeprazole dose he has heartburn. He lost 35 pounds since March with not eating after 6 PM. He walks 9 miles a day at work. He was going to take Mounjaro but it was too expensive and he did not start it. He denies blood in his stool. He has daily bowel movements. He moves his bowels 20 minutes after a meal 4 times a day. TIMOTHY KRISHNA JR, MD [address] [place] [address], [address], [facility] 11/06/2024 10:41:48 12/04/2024 text/html ROS as noted in the [...] pain 3 weeks ago. He went to [facility]. CTA of the chest showed no pulmonary [...] pain with meals. TIMOTHY KRISHNA JR, MD [address] [place] [address] [place], [address], [facility] 12/04/2024 15:18:31 01/01/2025 text/html He underwent laparoscopic cholecystectomy on [...] follow-up as needed. TIMOTHY KRISHNA JR, MD [address] [place], [address], [facility] 01/01/2025 09:30:26
== END 2025-02-12 23:59 | disposition home or self-care (01) ==
LOC: RAD 14:40
PROVIDERS: PCP Family Medicine; Visit Provider Nurse Practitioner Family
DX: N13.2 Hydronephrosis with renal and ureteral calculous obstruction (principal)
CPT/HCPCS: 36415; 74177; 82565; 84520; Q9967